=== PATIENT | male | born 1935 | race Caucasian/White ===

== ENCOUNTER → 2022-01-21 10:08 | Outpatient (BNVA) | payer MEDICARE, SELFPAY | PROVIDERS: Family Provider Nurse Practitioner; PCP Nurse Practitioner; Visit Provider Nurse Practitioner | DX: I10 Essential (primary) hypertension (principal) | CPT/HCPCS: 85025 ==

== ENCOUNTER → 2022-05-11 09:59 | Outpatient (BNVA) | payer MEDICARE, SELFPAY | PROVIDERS: Family Provider Nurse Practitioner; PCP Nurse Practitioner; Visit Provider Nurse Practitioner Family | DX: E87.5 Hyperkalemia (principal); I10 Essential (primary) hypertension; Z95.0 Presence of cardiac pacemaker | CPT/HCPCS: 80048 ==

== ENCOUNTER 2022-06-17 04:37 | Emergency (ER) | payer MEDICARE, SELFPAY ==
[2022-06-17 04:42] VITALS: BP 189/84; PULSE 73; RESP 18; TEMP 36.7; O2SAT 99; BMI 23.7
--- NOTE | 2022-06-17 05:07 | W.ED.NECK ---
HPI - Neck Pain/Injury General: Chief Complaint: Neck Pain/Injury Stated Complaint: Neck Pain And Knots Time Seen by Provider: 06/17/22 04:40 History of Present Illness: Mr. Covarrubias is an 86-year-old gentleman with history of hypertension, pacemaker placement presenting to the emergency department due to right-sided muscular neck pain. Onset of symptoms approximately 2 days ago initially noticing mild spasms however this is subsequently worsened associated with stiffness. Symptoms are worse with palpation and rotation of the head. Denies paresthesias or headache. Has at times seen the muscle spasm. Denies trauma. No other specific changes in health, exacerbating, or alleviating factors identified. Onset (ago): day(s) Severity: moderate Quality: spasming Exacerbating factors: movement of extremity and movement of neck Associated symptoms: Reports no associated symptoms Review of Systems General: Reports: 10 or more systems reviewed and unremarkable except in HPI and below PFSH ED PFSH: Medical History Actinic dermatitis Controlled diabetes mellitus Dermatitis Essential (primary) hypertension History of CVA (cerebrovascular accident) Pacemaker Surgical History History of colonoscopy 2010 History of permanent cardiac pacemaker placement January 13, [address] [facility] History of prostate surgery 2008 History of tonsillectomy Family History Brother FH: CVA (cerebrovascular accident) Father FH: CVA (cerebrovascular accident) Social History Smoking and tobacco status: former smoker Second hand smoke exposure: No Smoking risk assessment/counseling performed?: No Alcohol intake: never Desire information about alcohol rehabilitation?: No Counseling given: No Desire information about substance/drug rehabilitation?: No Counseling given: No Adopted: No Caregiver/support person: No Lives independently: Yes Household members: spouse Housing: House Marital status: Current occupational status: retired Current gender identity: Male Physical Exam Const: COMMON NORMALS: alert GENERAL APPEARANCE: cooperative and well developed HENMT: COMMON NORMALS: normocephalic and atraumatic HEAD & SCALP: normocephalic and atraumatic THROAT: posterior oropharynx normal Eye: COMMON NORMALS: conjunctivae normal CONJUNCTIVA: Yes conjunctivae normal SCLERA: sclerae normal Neck/C-Spine: COMMON NORMALS: supple GENERAL: Yes trachea midline OTHER: Right lateral muscular tenderness palpation with spasming. No posterior midline tenderness to palpation. No evidence of meningeal signs. No overlying skin lesions. Resp: COMMON NORMALS: clear to auscultation bilaterally EFFORT & INSPECTION: Yes able to speak in complete sentences AUSCULTATION: clear to auscultation bilaterally Cardio: COMMON NORMALS: regular rate and regular rhythm RATE: regular rate RHYTHM: regular rhythm GI: COMMON NORMALS: Soft to palpation PALPATION: Yes Soft to palpation and No Tenderness to palpation present (GI) PERCUSSION: normal to percussion Extremity: GENERAL: Yes normal exam except as noted and No edema Neuro: COMMON NORMALS: moves all extremities SENSORIUM/ORIENTATION: Yes alert and No Orientation impaired Psych: COMMON NORMALS: mental status grossly normal and Normal thought process present THOUGHT PROCESS: Normal thought process present Course Vital Signs: Vital signs: Vital Signs Temperature 98.0 F 06/17/22 04:42 Pulse Rate 70 06/17/22 06:09 Respiratory Rate 16 06/17/22 06:09 Blood Pressure 133/60 06/17/22 06:09 Pulse Oximetry 97 06/17/22 06:09 Oxygen Delivery Me thod 06/17/22 06:09 MDM - Neck Pain/Injury Medical Decision Making 86-year-old gentleman presenting with neck pain. Clinical exam and history provided is consistent with musculoskeletal pain. Patient proved with treatment. Strict caution discussed regarding prescriptions. Follow-up plan and return precautions discussed. Satisfactory for outpatient management. Medical Records I reviewed the patient's medical records. Lab Data I reviewed the patient's lab results. Discharge Plan Discharge Patient Disposition: Home Clinical Impression: Neck pain, Muscle spasm Condition: Stable Prescriptions: New Valium 5 mg tablet 5 mg PO Q8H PRN (Reason: muscle spasm) Qty: 10 0RF No Action aspirin [Adult Low Dose Aspirin] 81 mg tablet,delayed release (DR/EC) 81 mg PO DAILY metformin 500 mg tablet 500 mg PO BID simvastatin 20 mg tablet 20 mg PO DAILY Eliquis 5 mg tablet 5 mg PO BID mometasone 0.1 % cream 1 applic topical DAILY mometasone 0.1 % cream 1 applic topical DAILY PRN (Reason: skin irritation) Qty: 45 0RF methocarbamol 750 mg tablet 750 mg PO Q8H Qty: 30 0RF diclofenac sodium 75 mg tablet,delayed release (DR/EC) 75 mg PO BID Qty: 30 0RF Discharge Orders: Discharge ED (Routine); Ordered 06/17/22 Ordered By: Dangelo Granda Referrals: Willis Hinkle, ELIESER [Primary Care Provider] - Discharge Diet: Usual diet Discharge Activity: Increase activity as tolerated Patient Instructions: Diazepam (By mouth), Muscle Spasm (ED), Acute Neck Pain (ED), Pain Management Activity Restrictions/Additional Instructions: Thank you for visiting the emergency department. You were seen and evaluated for neck pain. The exact cause of your symptoms is unclear though based on description is likely muscle skeletal nature. We are pleased that you had improvement with treatment. You may continue to use [id number] medications however please do not exceed the daily recommended dosage. Please also take a proton pump inhibitor or H2 amber if using NSAIDs given your Eliquis use. You may also use topical patches such as Lidoderm, heat, ice. I will prescribe Valium, please use this extremely cautiously as these medications can cause difficulty with gait and balance as well as sedation. Please follow-up with your primary care provider. Return to the emergency department for uncontrolled symptoms, any new neurologic symptoms, or anything else that you are concerned about a feel needs emergency department evaluation. Coding Level of Care Code ED Clay Burner for Hattie Shaffer
[2022-06-17] MEDS: ketorolac 30 mg/mL INJ IM (05:15)
[2022-06-17] MEDS: diazePAM 5 mg Tablet PO (05:16)
[2022-06-17] MEDS: acetaminophen 325 mg Tablet 650 MG PO (05:16)
[2022-06-17 06:09] VITALS: BP 133/60; PULSE 70; RESP 16; O2SAT 97
== END 2022-06-17 06:10 | disposition home or self-care (01) ==
PROVIDERS: Emergency Provider Emergency Medicine; PCP Nurse Practitioner
DX: M54.2 Cervicalgia (principal); M62.838 Other muscle spasm; Z79.01 Long term (current) use of anticoagulants; Z79.84 Long term (current) use of oral hypoglycemic drugs; Z79.82 Long term (current) use of aspirin; Z87.891 Personal history of nicotine dependence; E11.9 Type 2 diabetes mellitus without complications; I10 Essential (primary) hypertension; Z86.73 Personal history of transient ischemic attack (TIA), and cerebral infarction without residual deficits; Z95.0 Presence of cardiac pacemaker
CPT/HCPCS: 96372; 99284; J1885

== ENCOUNTER 2022-06-19 08:09 | Emergency (ER) | payer MEDICARE, SELFPAY ==
[2022-06-19 08:24] VITALS: BMI 23.7
--- NOTE | 2022-06-19 08:46 | CTR_ITS ---
PROCEDURE INFORMATION: Exam: CTA Neck With Contrast Exam date and time: 06/19/2022 10:16 AM Age: 86 years old Clinical indication: Other: Right sided neck pain; Additional info: Severe right sided neck pain TECHNIQUE: Imaging protocol: Computed tomographic angiography of the neck with contrast. 3D rendering (Not supervised by radiologist): MIP and/or 3D reconstructed images were created by the technologist. Radiation optimization: All CT scans at this facility use at least one of these dose optimization techniques: automated exposure control; mA and/or kV adjustment per patient size (includes targeted exams where dose is matched to clinical indication); or iterative reconstruction. Contrast material: OMNI 350; Contrast volume: 100 ml; Contrast route: INTRAVENOUS (IV); COMPARISON: CT cervical spin wo con* [id number] 04/17/2017 5:58 PM RADIATION DOSE METRICS: Total DLP (mGy-cm): 451.29 FINDINGS: Tubes, catheters and devices: Pacemaker. Right common carotid artery: No stenosis. No dissection or occlusion. Right internal carotid artery: Moderate stenosis involving the proximal right internal carotid artery. Right external carotid artery: No occlusion or stenosis of the origin. Left common carotid artery: No stenosis. No dissection or occlusion. Left internal carotid artery: No stenosis of the extracranial segment. No dissection or occlusion. Left external carotid artery: No occlusion or stenosis of the origin. Right vertebral artery: Moderate to severe stenosis involving the distal right vertebral artery at the skull base. Left vertebral artery: Severe stenosis involving the proximal/origin left vertebral artery. Aorta: Ectatic ascending aorta 39 mm. Pulmonary arteries: Enlarged pulmonary artery at 38 mm likely pulmonary arterial hypertension. Salivary glands: There is a calcification associated with the right submandibular gland which appears smaller than the left. Thyroid: Slightly heterogeneous thyroid. Soft tissues: Normal. No significant soft tissue swelling. Bones/joints: Sternal sutures. Diffuse spinal arthritis. Lungs: Bilateral incompletely seen lung infiltrates. Possibly atelectasis. CT/CT angio neck [id number] IMPRESSION: 1. Moderate right proximal internal carotid artery stenosis. 2. 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 3. Moderate to severe stenosis involving the distal right vertebral artery. 4. Other findings as above. REFERENCES: NASCET CRITERIA. The degree of stenosis in the cervical segment of the internal carotid artery is based on NASCET criteria. Normal is no stenosis. Mild is less than 50% stenosis. Moderate is 50-69% stenosis. Severe is 70% to 99% stenosis. Total occlusion is no detectable patent lumen.
[2022-06-19] MEDS: ketorolac 30 mg/mL INJ 15 MG IM (08:51)
[2022-06-19] MEDS: methocarbamol 750 mg Tablet 1500 MG PO (08:51)
[2022-06-19 08:59] VITALS: PULSE 67; O2SAT 96
--- NOTE | 2022-06-19 09:23 | W.ED.GENADLT ---
HPI - General Adult General: Chief complaint: General Medical Stated complaint: Neck pain, being seen again Time Seen by Provider: 06/19/22 08:10 History of Present Illness: 86-year-old male presenting today with right-sided neck pain. Worse with movement. Onset approximately 4 days ago. Was seen here 2 days ago. Prescribed Valium as well as Tylenol with minimal improvement in pain. He denies numbness or tingling. Pain being worse in the morning and at night. Somewhat relieved during the day. No prior history of similar. Notes all of this began after using a [place] track. He has been using this for years. But recently resumed. He denies chest pain or shortness of breath. He denies fevers or chills. He denies cough. Review of Systems General: Reports: 10 or more systems reviewed and unremarkable except in HPI and below PFSH ED PFSH: Medical History Actinic dermatitis Controlled diabetes mellitus Dermatitis Essential (primary) hypertension History of CVA (cerebrovascular accident) Pacemaker Surgical History History of colonoscopy 2010 History of permanent cardiac pacemaker placement January 13, 2022 at [facility] History of prostate surgery 2008 History of tonsillectomy Family History Brother FH: CVA (cerebrovascular accident) Father FH: CVA (cerebrovascular accident) Social History Smoking and tobacco status: former smoker Second hand smoke exposure: No Smoking risk assessment/counseling performed?: No Alcohol intake: never Desire information about alcohol rehabilitation?: No Counseling given: No Desire information about substance/drug rehabilitation?: No Counseling given: No Adopted: No Caregiver/support person: No Lives independently: Yes Household members: spouse Housing: House Marital status: Current occupational status: retired Current gender identity: Male Physical Exam Const: COMMON NORMALS: no acute distress, patient oriented x3 and alert GENERAL APPEARANCE: cooperative ORIENTATION/CONSCIOUSNESS: Yes awake, Yes oriented to person, Yes oriented to place and Yes oriented to time HENMT: COMMON NORMALS: normocephalic, atraumatic, external ears normal, Normal external nose present and moist oral mucous membranes HEAD & SCALP: normal to inspection, normocephalic and atraumatic NOSE: Normal external nose present GENERAL EAR: hearing grossly impaired EXTERNAL EAR: Yes external ears normal Eye: COMMON NORMALS: Equal, round and reactive pupils present, EOMs intact bilaterally, conjunctivae normal and no scleral icterus GENERAL EYE: appearance normal, both eyes and all related structures EYELID: eyelids normal CONJUNCTIVA: Yes conjunctivae normal SCLERA: sclerae normal PUPIL: Yes Equal, round and reactive pupils present Neck/C-Spine: COMMON NORMALS: full ROM, supple and no JVD GENERAL: Yes normal visual inspection OTHER: Tenderness to palpation along the right neck. Lymph: LYMPHATIC: no lymphadenopathy noted and no lymphedema noted Chest: COMMONS NORMALS: normal inspection of the chest Resp: COMMON NORMALS: normal respiratory effort, No retractions and No use of accessory muscles Cardio: COMMON NORMALS: no JVD, regular rate and regular rhythm RATE: regular rate RHYTHM: regular rhythm GI: COMMON NORMALS: Normal to inspection, nondistended, normoactive bowel sounds present : COMMON NORMALS: Yes no CVA tenderness BLADDER/KIDNEY EXAM: Yes no CVA tenderness Back/Pelvis: COMMON NORMALS: no CVA tenderness and thoracic and lumbar spine normal to inspection Extremity: COMMON NORMALS: normal to inspection, full ROM and capillary refill normal GENERAL: Yes normal exam except as noted Neuro: COMMON NORMALS: patient oriented x3, CN's II-XII intact bilaterally, moves all extremities, no focal motor deficits, no sensory deficits noted and gait normal SENSORIUM/ORIENTATION: Yes alert, Yes oriented to person, Yes oriented to place and Yes oriented to time Psych: COMMON NORMALS: mental status grossly normal, Normal thought process present, cooperative and normal affect THOUGHT PROCESS: Normal thought process present Skin: COMMON NORMALS: no rashes or lesions noted and no wounds GENERAL SKIN EXAM: no rashes or lesions noted Course Vital Signs: Vital signs: Vital Signs Pulse Rate 67 06/19/22 12:11 Pulse Oximetry 95 06/19/22 12:11 Oxygen Delivery Me thod 06/19/22 08:59 [facility] - General Adult Medical Decision Making 86-year-old male presenting today with right-sided neck pain. Previously seen 48 hours ago. CMP with evidence of hyponatremia otherwise within normal limits. Patient with microcytic anemia. Patient already on iron supplementation. Recommended routine follow-up with primary care. Blood glucose is elevated. Without evidence of DKA or HHS. CTA with severe vertebral artery stenosis as well as moderate right carotid stenosis. Will refer on to vascular surgery for further evaluation management. Already on aspiring. Patient was given strict return precautions and recommended routine outpatient follow-up. Lab Data : 06/19/22 09:18 06/19/22 09:18 Radiology Impressions Neck CTA 06/19/22 08:46 IMPRESSION: 1. Moderate right proximal internal carotid artery stenosis. 2. 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 3. Moderate to severe stenosis involving the distal right vertebral artery. 4. Other findings as above. REFERENCES: NASCET CRITERIA. The degree of stenosis in the cervical segment of the internal carotid artery is based on NASCET criteria. Normal is no stenosis. Mild is less than 50% stenosis. Moderate is 50-69% stenosis. Severe is 70% to 99% stenosis. Total occlusion is no detectable patent lumen. Laboratory Results WBC 8.2 10^3/uL (4.0-10.0) 06/19/22 09:18 RBC 4.04 10^6/uL (4.1-5.3) L 06/19/22 09:18 Hgb 8.8 g/dL (11.7-16.6) L 06/19/22 09:18 Hct 30.4 % (42.0-52.0) L 06/19/22 09:18 MCV 75.2 fl (80-94) L 06/19/22 09:18 MCH 21.8 pg (28.0-34.0) L 06/19/22 09:18 MCHC 28.9 g/dL (30.0-36.0) L 06/19/22 09:18 RDW 15.5 % (12.1-15.1) H 06/19/22 09:18 Plt Count 292 10^3/cmm (130-400) 06/19/22 09:18 MPV 10.8 fL (7.4-10.4) H 06/19/22 09:18 Neut % (Auto) 83.5 % 06/19/22 09:18 Lymph % (Auto) 6.9 % 06/19/22 09:18 Knott % (Auto) 8.1 % 06/19/22 09:18 Eos % (Auto) 0.6 % 06/19/22 09:18 Baso % (Auto) 0.5 % 06/19/22 09:18 Neut # (Auto) 6.88 10^3/uL (1.8-7.7) 06/19/22 09:18 Lymph # (Auto) 0.6 10^3/uL (0.8-4.8) L 06/19/22 09:18 Knott # (Auto) 0.7 10^3/uL (0.2-0.9) 06/19/22 09:18 Eos # (Auto) 0.1 10^3/uL (0.0-0.8) 06/19/22 09:18 Baso # (Auto) 0.0 10^3/uL (0.0-0.1) 06/19/22 09:18 Nucleated RBC % (auto) 0 % 06/19/22 09:18 Nucleated RBCs # 0.0 /100WBC 06/19/22 09:18 Sodium 124 mmol/L (136-145) L 06/19/22 09:18 Potassium 4.5 mmol/L (3.5-5.1) 06/19/22 09:18 Chloride 92 mmol/L (98-107) L 06/19/22 09:18 Carbon Dioxide 22 mmol/L (22-29) 06/19/22 09:18 Anion Gap 14.5 (5-19) 06/19/22 09:18 BUN 20 mg/dL (8-23) 06/19/22 09:18 Creatinine 0.9 mg/dL (0.7-1.2) 06/19/22 09:18 GFR Calculation Not Reportable 06/19/22 09:18 Glucose 386 mg/dL (65-115) H 06/19/22 09:18 Calculated Osmolality 277 mOsm/kg (285-295) L 06/19/22 09:18 Calcium 9.0 mg/dL (8.5-10.5) 06/19/22 09:18 Total Bilirubin 0.3 mg/dL (0.15-1.2) 06/19/22 09:18 AST 13 U/L (0-40) 06/19/22 09:18 ALT 10 U/L (0-41) 06/19/22 09:18 Alkaline Phosphatase 97 U/L (40-130) 06/19/22 09:18 Total Protein 6.5 g/dL (6.6-8.7) L 06/19/22 09:18 Albumin 3.9 g/dL (3.5-5.2) 06/19/22 09:18 Globulin 2.6 g/dL (1.3-4.6) 06/19/22 09:18 Discharge Plan Discharge Patient Disposition: Home Clinical Impression: Acute hyponatremia, Asymptomatic vertebral artery stenosis, Asymptomatic carotid artery stenosis Condition: Stable Prescriptions: New methocarbamol 750 mg tablet 750 mg PO Q8H Qty: 30 0RF diclofenac sodium 75 mg tablet,delayed release (DR/EC) 75 mg PO BID Qty: 30 0RF No Action aspirin [Adult Low Dose Aspirin] 81 mg tablet,delayed release (DR/EC) 81 mg PO DAILY metformin 500 mg tablet 500 mg PO BID simvastatin 20 mg tablet 20 mg PO DAILY Eliquis 5 mg tablet 5 mg PO BID mometasone 0.1 % cream 1 applic topical DAILY spironolactone 25 mg tablet 25 mg PO DAILY mometasone 0.1 % cream 1 applic topical DAILY PRN (Reason: skin irritation) Qty: 45 0RF Valium 5 mg tablet 5 mg PO Q8H PRN (Reason: muscle spasm) Qty: 10 0RF Discharge Orders: Discharge ED (Routine); Ordered 06/19/22 Ordered By: Nima Perry Referrals: Willis Hinkle, CAPSULE INSPECTOR-C [Primary Care Provider] - Patient Instructions: Carotid Artery Disease (DC), Acute Neck Pain (ED), Pain Management Coding Level of Care Code ED [employer] Process[employer] Manager for Chg Fwd Exam Comprehensive
[2022-06-19 09:33] LABS: Basophils % 0.5 %; Eosinophils # 0.1 10^3/uL (0.0-0.8); Eosinophils % 0.6 %; Hematocrit 30.4 % (42.0-52.0); Hemoglobin 8.8 g/dL (11.7-16.6); Lymphocytes # 0.6 10^3/uL (0.8-4.8); Lymphocytes % 6.9 %; Mean Corpuscular HGB Conc 28.9 g/dL (30.0-36.0); Mean Corpuscular Hemoglobin 21.8 pg (28.0-34.0); Mean Corpuscular Volume 75.2 fl (80-94); Mean Platelet Volume 10.8 fL (7.4-10.4); Monocytes # 0.7 10^3/uL (0.2-0.9); Monocytes % 8.1 %; Neutrophils # 6.88 10^3/uL (1.8-7.7); Neutrophils % 83.5 %; Nucleated Red Blood Cells % 0 %; Platelet Count 292 10^3/cmm (130-400); Red Blood Count 4.04 10^6/uL (4.1-5.3); Red Cell Distribution Width 15.5 % (12.1-15.1); White Blood Count 8.2 10^3/uL (4.0-10.0)
[2022-06-19 09:55] LABS: Alanine Aminotransferase 10 U/L (0-41); Albumin Level 3.9 g/dL (3.5-5.2); Alkaline Phosphatase 97 U/L (40-130); Anion Gap 14.5 (5-19); Aspartate Amino Transferase 13 U/L (0-40); Blood Urea Nitrogen 20 mg/dL (8-23); Carbon Dioxide 22 mmol/L (22-29); Chloride 92 mmol/L (98-107); Globulin 2.6 g/dL (1.3-4.6); Glucose 386 mg/dL (65-115); Osmolality Calculated 277 mOsm/kg (285-295); Potassium 4.5 mmol/L (3.5-5.1); Sodium 124 mmol/L (136-145); Total Bilirubin 0.3 mg/dL (0.15-1.2); Total Protein 6.5 g/dL (6.6-8.7)
[2022-06-19] MEDS: iohexol 350 mg/mL 100 mL Btl IV (10:26)
[2022-06-19 10:59] VITALS: PULSE 66; O2SAT 99
[2022-06-19 12:11] VITALS: PULSE 67; O2SAT 95
== END 2022-06-19 12:00 | disposition home or self-care (01) ==
PROVIDERS: Emergency Provider Emergency Medicine; PCP Nurse Practitioner
DX: E87.1 Hypo-osmolality and hyponatremia (principal); I65.09 Occlusion and stenosis of unspecified vertebral artery; I65.29 Occlusion and stenosis of unspecified carotid artery; Z79.01 Long term (current) use of anticoagulants; Z79.84 Long term (current) use of oral hypoglycemic drugs; Z79.82 Long term (current) use of aspirin; E11.9 Type 2 diabetes mellitus without complications; I10 Essential (primary) hypertension; Z86.73 Personal history of transient ischemic attack (TIA), and cerebral infarction without residual deficits; Z95.0 Presence of cardiac pacemaker; Z87.891 Personal history of nicotine dependence
CPT/HCPCS: 36415; 70498; 80053; 85025; 96372; 99285; J1885; Q9967

== ENCOUNTER → 2022-07-02 08:34 | Outpatient (BNVA) | payer MEDICARE, SELFPAY | PROVIDERS: PCP Nurse Practitioner; Visit Provider Surgery | DX: D64.9 Anemia, unspecified (principal) | CPT/HCPCS: 99203 ==

== ENCOUNTER → 2022-07-27 16:43 | Outpatient (BNVA) | payer MEDICARE, SELFPAY | PROVIDERS: PCP Nurse Practitioner; Visit Provider Nurse Practitioner | DX: E11.65 Type 2 diabetes mellitus with hyperglycemia (principal); I10 Essential (primary) hypertension; D64.9 Anemia, unspecified; E55.9 Vitamin D deficiency, unspecified; R26.81 Unsteadiness on feet | CPT/HCPCS: 80053; 82306; 82607; 83036; 83550; 84443; 85025 ==

== ENCOUNTER 2022-08-10 17:29 | Emergency (ER) | payer MEDICARE, SELFPAY ==
[2022-08-10] VITALS (7 sets, daily range): BP systolic 139–167; BP diastolic 72–78; PULSE 85–91; RESP 13–18; O2SAT 93–99; BMI 23.0
--- NOTE | 2022-08-10 17:31 | W.ED.CHESTPA ---
HPI - Chest Pain General: Chief Complaint: Back Pain/Injury Stated Complaint: possible heart attack Time Seen by Provider: 08/10/22 17:31 History of Present Illness: Mr. Covarrubias is an 86-year-old gentleman with complex past medical history including hypertension, hyperlipidemia, history of known CAD, pacemaker placement, stroke, bypass surgery presenting to the emergency department due to upper back pain. He notes symptoms present upon waking up and initially felt like he had just slept wrong however symptoms have worsened. Intensity is severe. Worse with movement and palpation. Denies any new neurologic symptoms. No other specific changes in health, exacerbating, or alleviating factors identified. Onset (ago): hour(s) Timing of current episode: constant Prior episodes: No Onset: during rest Pain radiation: left scapula and right scapula Severity: severe Quality: aching Relieving factors: nothing Exacerbating factors: palpation and movement Review of Systems General: Reports: 10 or more systems reviewed and unremarkable except in HPI and below PFSH ED PFSH: Medical History Actinic dermatitis Dermatitis Diabetes mellitus with hyperglycemia Essential (primary) hypertension History of CVA (cerebrovascular accident) Iron deficiency Lesion of bladder removed colo Pacemaker Surgical History History of colonoscopy 2010 History of permanent cardiac pacemaker placement January 13, 2022 at [facility] History of prostate surgery 2008 History of tonsillectomy Family History Brother FH: CVA (cerebrovascular accident) Father FH: CVA (cerebrovascular accident) Social History Smoking and tobacco status: former smoker Second hand smoke exposure: No Smoking risk assessment/counseling performed?: No Alcohol intake: never Desire information about alcohol rehabilitation?: No Counseling given: No Desire information about substance/drug rehabilitation?: No Counseling given: No Adopted: No Caregiver/support person: No Lives independently: Yes Household members: spouse Housing: House Marital status: Current occupational status: retired Current gender identity: Male Physical Exam Const: COMMON NORMALS: alert GENERAL APPEARANCE: cooperative and well developed HENMT: COMMON NORMALS: normocephalic and atraumatic HEAD & SCALP: normocephalic and atraumatic THROAT: posterior oropharynx normal Eye: COMMON NORMALS: conjunctivae normal CONJUNCTIVA: Yes conjunctivae normal SCLERA: sclerae normal Neck/C-Spine: COMMON NORMALS: supple GENERAL: Yes trachea midline Resp: COMMON NORMALS: normal respiratory effort and clear to auscultation bilaterally EFFORT & INSPECTION: Yes able to speak in complete sentences AUSCULTATION: clear to auscultation bilaterally Cardio: COMMON NORMALS: regular rate and regular rhythm RATE: regular rate RHYTHM: regular rhythm GI: COMMON NORMALS: Soft to palpation PALPATION: Yes Soft to palpation and No Tenderness to palpation present (GI) Extremity: GENERAL: Yes normal exam except as noted and No edema Neuro: COMMON NORMALS: moves all extremities SENSORIUM/ORIENTATION: Yes alert and No Orientation impaired Psych: COMMON NORMALS: mental status grossly normal and Normal thought process present THOUGHT PROCESS: Normal thought process present Course Vital Signs: Vital signs: Vital Signs Pulse Rate 91 08/10/22 22:20 Respiratory Rate 16 08/10/22 22:20 Blood Pressure 167/76 08/10/22 22:20 Pulse Oximetry 99 08/10/22 22:20 Oxygen Delivery Me thod 08/10/22 18:33 MDM - Chest Pain Medical Decision Making 86-year-old gentleman presenting with back pain, nontraumatic mechanism. Exam as above. EKG shows atrial paced rhythm and ventricular paced rhythm, no STEMI. Labs notable for leukocytosis, normocytic anemia similar to prior. Metabolic panel similar to prior. Age-adjusted D-dimer is negative. 2-hour delta troponin is negative. Chest x-ray without lobar consolidation or pneumothorax. Given severity of symptoms and persistence despite treatment I believe that CTA for vascular pathology is reasonable. CTA negative for acute pathology to explain symptoms. CT T-spine negative for acute findings to explain symptoms. During ED course patient received analgesia and aspirin. Upon reassessment patient feels somewhat improved. I did discuss uncertain etiology of symptoms however patient would like to go home. The results of ED evaluation were discussed with the patient including prescriptions and/or symptomatic cares (if applicable) including appropriate and responsible use, followup plan, and return precautions. The patient verbalized understanding and felt safe for discharge. Medical Records I reviewed the patient's medical records. Lab Data I reviewed the patient's lab results. 08/10/22 17:38 08/10/22 17:38 Radiology Impressions Chest X-Ray 08/10/22 17:33 IMPRESSION: Negative for infiltrate. Chest CTA 08/10/22 19:25 IMPRESSION: 1. No pulmonary embolism or pneumonia. 2. Unremarkable thoracic aorta. 3. Chronic and incidental findings as described. Thoracic Spine CT 08/10/22 19:25 IMPRESSION: No acute findings Laboratory Results WBC 14.2 10^3/uL (4.0-10.0) H 08/10/22 17:38 RBC 4.11 10^6/uL (4.1-5.3) 08/10/22 17:38 Hgb 8.4 g/dL (11.7-16.6) L 08/10/22 17:38 Hct 29.4 % (42.0-52.0) L 08/10/22 17:38 MCV 71.5 fl (80-94) L 08/10/22 17:38 MCH 20.4 pg (28.0-34.0) L 08/10/22 17:38 MCHC 28.6 g/dL (30.0-36.0) L 08/10/22 17:38 RDW 17.6 % (12.1-15.1) H 08/10/22 17:38 Plt Count 352 10^3/cmm (130-400) 08/10/22 17:38 MPV 9.9 fL (7.4-10.4) 08/10/22 17:38 Neut % (Auto) 85.1 % 08/10/22 17:38 Lymph % (Auto) 6.8 % 08/10/22 17:38 [place] % (Auto) 7.0 % 08/10/22 17:38 Eos % (Auto) 0.3 % 08/10/22 17:38 Baso % (Auto) 0.4 % 08/10/22 17:38 Neut # (Auto) 12.12 10^3/uL (1.8-7.7) H 08/10/22 17:38 Lymph # (Auto) 1.0 10^3/uL (0.8-4.8) 08/10/22 17:38 [place] # (Auto) 1.0 10^3/uL (0.2-0.9) H 08/10/22 17:38 Eos # (Auto) 0.0 10^3/uL (0.0-0.8) 08/10/22 17:38 Baso # (Auto) 0.1 10^3/uL (0.0-0.1) 08/10/22 17:38 Nucleated RBC % (auto) 0 % 08/10/22 17:38 Nucleated RBCs # 0.0 /100WBC 08/10/22 17:38 D-Dimer 0.81 ug/mIFEU (0-0.59) H 08/10/22 17:38 Sodium 135 mmol/L (136-145) L 08/10/22 17:38 Potassium 4.5 mmol/L (3.5-5.1) 08/10/22 17:38 Chloride 101 mmol/L (98-107) 08/10/22 17:38 Carbon Dioxide 20 mmol/L (22-29) L 08/10/22 17:38 Anion Gap 18.5 (5-19) 08/10/22 17:38 BUN 24 mg/dL (8-23) H 08/10/22 17:38 Creatinine 0.9 mg/dL (0.7-1.2) 08/10/22 17:38 GFR Calculation Not Reportable 08/10/22 17:38 Glucose 205 mg/dL (65-115) H 08/10/22 17:38 Calculated Osmolality 290 mOsm/kg (285-295) 08/10/22 17:38 Calcium 9.6 mg/dL (8.5-10.5) 08/10/22 17:38 Total Bilirubin 0.3 mg/dL (0.15-1.2) 08/10/22 17:38 AST 14 U/L (0-40) 08/10/22 17:38 ALT 14 U/L (0-41) 08/10/22 17:38 Alkaline Phosphatase 104 U/L (40-130) 08/10/22 17:38 Troponin T Baseline 25 ng/L (0-15) H 08/10/22 17:38 Troponin T 120 Minute 23.31 ng/L (0-15) H 08/10/22 19:30 Delta Troponin T -1.69 ABS# (0-10) L 08/10/22 19:30 NT-Pro-B Natriuret Pep 970 pg/mL (0-450) H 08/10/22 17:38 Total Protein 7.4 g/dL (6.6-8.7) 08/10/22 17:38 Albumin 4.3 g/dL (3.5-5.2) 08/10/22 17:38 Globulin 3.1 g/dL (1.3-4.6) 08/10/22 17:38 Lipase 17 U/L (13-60) 08/10/22 17:38 Discharge Plan Discharge Patient Disposition: Home Clinical Impression: Acute thoracic back pain Condition: Stable Prescriptions: New ondansetron 4 mg tablet,disintegrating 4 mg PO Q8H PRN (Reason: nausea and vomiting) Qty: 15 0RF oxycodone 5 mg tablet 5 mg PO Q4H PRN (Reason: pain) Qty: 20 0RF No Action aspirin [Adult Low Dose Aspirin] 81 mg tablet,delayed release (DR/EC) 81 mg PO DAILY metformin 500 mg tablet 500 mg PO BID simvastatin 20 mg tablet 20 mg PO DAILY Eliquis 5 mg tablet 5 mg PO BID mometasone 0.1 % cream 1 applic topical DAILY PRN (Reason: Rash) ascorbic acid (vitamin C) 500 mg capsule, extended release 500 mg PO DAILY ergocalciferol (vitamin D2) 1,250 mcg (50,000 unit) capsule 1,250 mcg PO .weekly Qty: 12 0RF Rx Instructions: Tuesday ferrous sulfate 325 mg (65 mg iron) tablet 325 mg PO DAILY Qty: 90 0RF (DME) DME: [facility] See Rx Instructions .ROUTE .MEDSUPPLY Qty: 1 0RF Rx Instructions: Code E0143 and E0156 walker 4 wheels and seat methocarbamol 750 mg tablet 750 mg PO Q8H Qty: 30 0RF multivitamin Tablet 1 tab PO DAILY Miralax 17 gram/dose Powder 12.75 g PO DAILY Discharge Orders: Discharge ED (Routine); Ordered 08/10/22 Ordered By: Dangelo Granda Referrals: Willis Hinkle, COMMODITY LOAN CLERK-C [Primary Care Provider] - Discharge Diet: Usual diet Discharge Activity: Increase activity as tolerated Patient Instructions: Muscle Spasm (ED), Back Pain (ED), Opioid Safety, Pain Management Activity Restrictions/Additional Instructions: Thank you for visiting the emergency department. You were seen and evaluated for back pain. The exact cause of your symptoms is unclear though given no other obvious cause identified most likely is musculoskeletal in nature. I would expect improvement with treatment in the next few days. You may use tfyn-vkc-hicixlb medications such as acetaminophen and ibuprofen for pain however please do not exceed the daily recommended dosage as listed on the packaging and please keep in mind that many namebrand medications contain the same active ingredients. Please follow-up with your primary care provider. Return to the emergency department for uncontrolled symptoms or anything else that you are concerned about a feel needs emergency department evaluation. Coding Level of Care Code ED Workers Compensation Legal Secretary for Hattie Shaffer
--- NOTE | 2022-08-10 17:33 | ECG_ITS ---
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 Measurements Intervals [place] Rate: 82 P: 121 ID: [id number] QRS: 156 QRSD: 160 T: -19 QT: 425 QTc: 499 Interpretive Statements ELECTRONIC ATRIAL PACEMAKER ELECTRONIC VENTRICULAR PACEMAKER Compared to ECG 04/17/2017 16:08:00 Sinus rhythm no longer present First degree AV block no longer present Left-axis deviation no longer present Left bundle-branch block no longer present Electronically Signed On 08-10-2022 18:48:00 WATER/WASTEWATER PROJECT ENGINEER by Mireya aVldez M.D. [id number]
--- NOTE | 2022-08-10 17:33 | XRR_ITS ---
PROCEDURE INFORMATION: Exam: XR Chest Exam date and time: 08/10/2022 5:41 PM Age: 86 years old Clinical indication: Angina pectoris and chest pressure and chest wall pain; Prior surgery; Surgery date: 6+ months; Additional info: Cp TECHNIQUE: Imaging protocol: Radiologic exam of the chest. Views: 1 view. COMPARISON: CT angio neck [id number] 06/19/2022 10:16 AM FINDINGS: Tubes, catheters and devices: Pacemaker. Lungs: Unremarkable. No consolidation. Pleural spaces: Unremarkable. No pleural effusion. No pneumothorax. Heart/Mediastinum: Unremarkable. No cardiomegaly. Bones/joints: Sternotomy wires. XR/XR chest 1V portable [id number] IMPRESSION: Negative for infiltrate.
[2022-08-10] MEDS: aspirin 81 mg Chew Tablet 324 MG PO (17:47)
[2022-08-10] MEDS: fentaNYL 50 mcg/mL INJ 2mL IVP ×2 (17:48→21:21)
[2022-08-10 17:49] LABS: Basophils # 0.1 10^3/uL (0.0-0.1); Basophils % 0.4 %; Eosinophils % 0.3 %; Hematocrit 29.4 % (42.0-52.0); Hemoglobin 8.4 g/dL (11.7-16.6); Lymphocytes % 6.8 %; Mean Corpuscular HGB Conc 28.6 g/dL (30.0-36.0); Mean Corpuscular Hemoglobin 20.4 pg (28.0-34.0); Mean Corpuscular Volume 71.5 fl (80-94); Mean Platelet Volume 9.9 fL (7.4-10.4); Neutrophils # 12.12 10^3/uL (1.8-7.7); Neutrophils % 85.1 %; Nucleated Red Blood Cells % 0 %; Platelet Count 352 10^3/cmm (130-400); Red Blood Count 4.11 10^6/uL (4.1-5.3); Red Cell Distribution Width 17.6 % (12.1-15.1); White Blood Count 14.2 10^3/uL (4.0-10.0)
[2022-08-10 18:16] LABS: Troponin(5th) Baseline 25 ng/L (0-15)
[2022-08-10 18:24] LABS: Alanine Aminotransferase 14 U/L (0-41); Albumin Level 4.3 g/dL (3.5-5.2); Alkaline Phosphatase 104 U/L (40-130); Anion Gap 18.5 (5-19); Aspartate Amino Transferase 14 U/L (0-40); Blood Urea Nitrogen 24 mg/dL (8-23); Calcium 9.6 mg/dL (8.5-10.5); Carbon Dioxide 20 mmol/L (22-29); Chloride 101 mmol/L (98-107); Creatinine Clr Calc Pharmacy 62.5977; Globulin 3.1 g/dL (1.3-4.6); Glucose 205 mg/dL (65-115); Lipase 17 U/L (13-60); NT Pro B Type Natriuretic Pept 970 pg/mL (0-450); Osmolality Calculated 290 mOsm/kg (285-295); Potassium 4.5 mmol/L (3.5-5.1); Sodium 135 mmol/L (136-145); Total Bilirubin 0.3 mg/dL (0.15-1.2); Total Protein 7.4 g/dL (6.6-8.7)
[2022-08-10 18:44] LABS: D Dimer 0.81 ug/mIFEU (0-0.59)
--- NOTE | 2022-08-10 19:25 | CTR_ITS ---
PROCEDURE INFORMATION: Exam: CT Thoracic Spine Without Contrast Exam date and time: 08/10/2022 8:56 PM Age: 86 years old Clinical indication: Pain in thoracic spine; Prior surgery; Surgery type: Cabg. Pacer; Patient HX: C/O severe upper back pain with no injury. ; Additional info: Back pain, severe, nontraumatic TECHNIQUE: Imaging protocol: Computed tomography of the thoracic spine without contrast. Radiation optimization: All CT scans at this facility use at least one of these dose optimization techniques: automated exposure control; mA and/or kV adjustment per patient size (includes targeted exams where dose is matched to clinical indication); or iterative reconstruction. COMPARISON: CT cervical spin wo con* [id number] 04/17/2017 5:58 PM RADIATION DOSE METRICS: Total DLP (mGy-cm): 835.51 FINDINGS: Tubes, catheters and devices: Permanent pacemaker/defibrillator device in place. Bones/joints: Sternotomy wires are in place. Multilevel degenerative disc change. Schmorl's node inferior aspect of T12. No acute bony findings. Soft tissues: Unremarkable. CT/CT thoracic spin wo con* [id number] IMPRESSION: No acute findings
--- NOTE | 2022-08-10 19:25 | CTR_ITS ---
PROCEDURE INFORMATION: Exam: CTA Chest With Contrast Exam date and time: 08/10/2022 9:00 PM Age: 86 years old Clinical indication: Prior surgery; Surgery type: Cabg. Pacer; Patient HX: C/O severe upper back pain. Elevated troponin. ; Additional info: Severe back pain, nontraumatic TECHNIQUE: Imaging protocol: Computed tomographic angiography of the chest with contrast. 3D rendering (Not supervised by radiologist): MIP and/or 3D reconstructed images were created by the technologist. Radiation optimization: All CT scans at this facility use at least one of these dose optimization techniques: automated exposure control; mA and/or kV adjustment per patient size (includes targeted exams where dose is matched to clinical indication); or iterative reconstruction. Contrast material: OMNI 350; Contrast volume: 100 ml; Contrast route: INTRAVENOUS (IV); COMPARISON: CR (CHEST, ) 08/10/2022 5:41 PM RADIATION DOSE METRICS: Total DLP (mGy-cm): 745.64 FINDINGS: Tubes, catheters and devices: Left chest pacemaker power pack. Pulmonary arteries: Overall exam quality is good for evaluating the pulmonary arteries. There are no intraluminal filling defects to indicate pulmonary embolism. Aorta: The thoracic aorta is normal in size and enhancement. No wall thickening or dissection. Lungs: Focal scarring in the posterior segment of the left upper lobe. In the superior segment of the left lower lobe there is a 2 mm calcified granuloma. In the right lateral basal segment and in the middle lobe there are several small calcified or weakly calcified granulomas. Multiple additional granulomas in the left lung. Pleural spaces: Unremarkable. No pneumothorax. No pleural effusion. Heart: Unremarkable. No cardiomegaly. No pericardial effusion. Lymph nodes: Unremarkable. No enlarged lymph nodes. Bones/joints: Unremarkable. No acute fracture. Soft tissues: Unremarkable. Other findings: Chronic mediastinal postop changes. CT/CT angio chest [id number] IMPRESSION: 1. No pulmonary embolism or pneumonia. 2. Unremarkable thoracic aorta. 3. Chronic and incidental findings as described.
--- NOTE | 2022-08-10 19:41 | ECG_ITS ---
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 Measurements Intervals [place] Cbc Base Rate: 85 P: 0 IN: 0 QRS: 147 QRSD: 158 T: -14 QT: 427 QTc: 510 Interpretive Statements ELECTRONIC VENTRICULAR PACEMAKER ABNORMAL RHYTHM ECG Compared to ECG 08/10/2022 17:34:12 Atrial-paced complex(es) or rhythm no longer present Electronically Signed On 08-11-2022 7:47:39 MOSHGIACH by Mireya Valdez M.D. [id number]
--- NOTE | 2022-08-10 19:47 | ECG_ITS ---
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 Measurements Intervals [place] Rate: 83 P: 74 UT: 186 QRS: 199 QRSD: 149 T: 202 QT: 423 QTc: 500 Interpretive Statements ELECTRONIC VENTRICULAR PACEMAKER MARKED ST DEPRESSION Compared to ECG 08/10/2022 19:41:56 ST (T wave) deviation now present Electronically Signed On 08-11-2022 16:17:49 COLOR DRUM WORKER by Lambert Robbins M.D. [id number]
[2022-08-10 20:18] LABS: Troponin 5 2HR 23.31 ng/L (0-15)
[2022-08-10 20:22] LABS: Troponin 5 2HR Delta -1.69 ABS# (0-10)
[2022-08-10] MEDS: iohexol 350 mg/mL 500 mL Btl (per mL) IV (21:06)
[2022-08-10] MEDS: oxyCODONE 5 mg IR Tab/Cap 15 MG PO (22:17)
== END 2022-08-10 22:20 | disposition home or self-care (01) ==
PROVIDERS: Emergency Provider Emergency Medicine; PCP Nurse Practitioner
DX: M54.6 Pain in thoracic spine (principal); Z79.82 Long term (current) use of aspirin; Z79.84 Long term (current) use of oral hypoglycemic drugs; Z79.01 Long term (current) use of anticoagulants; E11.9 Type 2 diabetes mellitus without complications; I10 Essential (primary) hypertension; Z86.73 Personal history of transient ischemic attack (TIA), and cerebral infarction without residual deficits; Z95.0 Presence of cardiac pacemaker; Z87.891 Personal history of nicotine dependence
CPT/HCPCS: 71045; 71275; 72128; 80053; 83690; 83880; 84484; 85025; 85378; 93005; 96374; 96376; 99285; J3010; Q9967

== ENCOUNTER 2022-08-15 00:06 | Inpatient (IN) | payer MEDICARE, SELFPAY ==
[2022-08-15] VITALS (84 sets, daily range): BP systolic 137–175; BP diastolic 64–88; PULSE 58–86; RESP 14–31; TEMP 36.7–37.8; O2SAT 88–100; BMI 23.8
--- NOTE | 2022-08-15 00:39 | W.ED.WEAKNES ---
HPI - Weakness General: Chief complaint: Weakness Stated complaint: WEAKNESS Time Seen by Provider: 08/15/22 00:14 Source: patient and family History of Present Illness: 86-year-old gentleman presenting with posterior neck, and left arm pain. He has had a temperature of 101 at home as well. He was seen 5 days ago for similar pain. CT was negative for thoracic dissection. Troponins were negative. He is anticoagulated. He has continued to complain of pain. He has been generally weak with this today. MD Complaint: generalized weakness Onset (ago): day(s) Duration: constant and progressively worsening Location: generalized Migration: none Severity: moderate Quality: tingling, numbness and aching Relieving factors: medication Exacerbating factors: movement and exertion Associated symptoms: Reports chest pain, confusion (Mild) and short of breath; Denies melena, diaphoresis, dysuria, easy bruising, headache(s) or vomiting Review of Systems Const: Denies: diaphoresis ENMT: Reports: throat pain and uvular edema Card: Reports: chest pain Resp: Denies: dyspnea GI: Denies: abdominal pain, vomiting or melena : Denies: dysuria Skin/Breast: Denies: rash Neuro: Reports: confusion (Mild); Denies: headache(s) Efren/Lymph: Denies: easy bruising PFSH ED PFSH: Medical History Actinic dermatitis Dermatitis Diabetes mellitus with hyperglycemia Essential (primary) hypertension History of CVA (cerebrovascular accident) Iron deficiency Lesion of bladder removed colo Pacemaker Surgical History History of colonoscopy 2010 History of permanent cardiac pacemaker placement January 13, 2022 at [facility] History of prostate surgery 2009 History of tonsillectomy Family History Brother FH: CVA (cerebrovascular accident) Father FH: CVA (cerebrovascular accident) Social History Smoking and tobacco status: former smoker Second hand smoke exposure: No Smoking risk assessment/counseling performed?: No Alcohol intake: never Desire information about alcohol rehabilitation?: No Counseling given: No Desire information about substance/drug rehabilitation?: No Counseling given: No Adopted: No Caregiver/support person: No Lives independently: Yes Household members: spouse Housing: House Marital status: Current occupational status: retired Current gender identity: Male Physical Exam Const: GENERAL APPEARANCE: cooperative and frail appearing; not comfortable ORIENTATION/CONSCIOUSNESS: Yes awake, Yes oriented to person, Yes oriented to place and Yes oriented to time HENMT: THROAT: uvular edema Neuro: SENSORIUM/ORIENTATION: Yes oriented to person, Yes oriented to place and Yes oriented to time Procedures Lumbar Puncture Time Out Performed: Yes Patient Position: left lateral decubitus Skin Prep: Povidone-Iodine 1% Local Anesthetic: lidocaine 1% Amount of anesthesia used (mL): 3 Spinal Needle Gauge: 20G Interspace Used: L3-L4 Fluid Initially Obtained: clear Complications: none Course Vital Signs: Vital signs: Vital Signs Temperature 98.1 F 08/15/22 14:39 Pulse Rate 76 08/15/22 14:39 Respiratory Rate 17 08/15/22 14:39 Blood Pressure 137/71 08/15/22 14:39 Pulse Oximetry 97 08/15/22 14:39 Oxygen Delivery Me thod 08/15/22 06:46 MDM - Weakness Medical Decision Making 86-year-old gentleman with a fever of 100 at home, some altered mental status, and ominous left arm and left side of the neck pain. There is a palpable mass at the base of his left neck. This appears to be a reactive lymph node by both ultrasound and CT. Chest x-ray is negative. His white blood cell count is 11.3. He hemoglobin is stable at 8.7. He has a sodium of 126. He has some mild mental status changes associated with this and potentially a fever. Because of the fever, neck pain, and mental status changes, CT was performed and is negative. Lumbar puncture was performed and shows no evidence of meningitis. Swabs are negative. He will be covered with antibiotics. Hydrated. His sodium is low, will need repletion. He will be admitted. Lab Data 08/15/22 00:10 12 00:10 Radiology Impressions Chest X-Ray 08/15/22 00:41 IMPRESSION: Stable chest with no definite acute process. Neck CT 08/15/22 00:41 IMPRESSION: 1. No suspicious neck mass or bulky cervical lymphadenopathy identified on CT. If a palpable concerning neck mass is persistent, follow with ENT. 2. A few tiny nodes as described. Other chronic findings above. Head/Neck Ultrasound 08/15/22 02:18 IMPRESSION: 1. Small left lower neck lymph node is unchanged from the same-day CT. This is probably a left supraclavicular node. 2. This is not overtly suspicious by morphology and is very small. Advise correlation. Recommend 3 to six-month follow-up exam. Head CT 08/15/22 02:43 IMPRESSION: 1. No focal hemorrhage or midline shift. 2. Old strokes and other chronic findings are again seen. Laboratory Results WBC 11.3 10^3/uL (4.0-10.0) H 08/15/22 00:10 RBC 4.38 10^6/uL (4.1-5.3) 08/15/22 00:10 Hgb 8.7 g/dL (11.7-16.6) L 08/15/22 00:10 Hct 31.0 % (42.0-52.0) L 08/15/22 00:10 MCV 70.8 fl (80-94) L 08/15/22 00:10 MCH 19.9 pg (28.0-34.0) L 08/15/22 00:10 MCHC 28.1 g/dL (30.0-36.0) L 08/15/22 00:10 RDW 19.1 % (12.1-15.1) H 08/15/22 00:10 Plt Count 393 10^3/cmm (130-400) 08/15/22 00:10 MPV 10.3 fL (7.4-10.4) 08/15/22 00:10 Neut % (Auto) 82.3 % 08/15/22 00:10 Lymph % (Auto) 6.5 % 08/15/22 00:10 [place] % (Auto) 10.1 % 08/15/22 00:10 Eos % (Auto) 0.4 % 08/15/22 00:10 Baso % (Auto) 0.3 % 08/15/22 00:10 Neut # (Auto) 9.32 10^3/uL (1.8-7.7) H 08/15/22 00:10 Lymph # (Auto) 0.7 10^3/uL (0.8-4.8) L 08/15/22 00:10 [place] # (Auto) 1.1 10^3/uL (0.2-0.9) H 08/15/22 00:10 Eos # (Auto) 0.1 10^3/uL (0.0-0.8) 08/15/22 00:10 Baso # (Auto) 0.0 10^3/uL (0.0-0.1) 08/15/22 00:10 Nucleated RBC % (auto) 0 % 08/15/22 00:10 Nucleated RBCs # 0.0 /100WBC 08/15/22 00:10 ESR 43 mm/hr (0-10) H 08/15/22 00:10 PT 17.00 SECONDS (12.1-14.9) H 08/15/22 00:10 INR 1.35 (0.8-1.2) H 08/15/22 00:10 APTT 33.9 SECONDS (23.9-36.7) 08/15/22 00:10 Sodium 126 mmol/L (136-145) L 08/15/22 00:10 Potassium 5.0 mmol/L (3.5-5.1) 08/15/22 00:10 Chloride 91 mmol/L (98-107) L 08/15/22 00:10 Carbon Dioxide 19 mmol/L (22-29) L 08/15/22 00:10 Anion Gap 21.0 (5-19) H 08/15/22 00:10 BUN 19 mg/dL (8-23) 08/15/22 00:10 Creatinine 1.0 mg/dL (0.7-1.2) 08/15/22 00:10 GFR Calculation Not Reportable 08/15/22 00:10 Glucose 246 mg/dL (65-115) H 08/15/22 00:10 Calculated Osmolality 272 mOsm/kg (285-295) L 08/15/22 00:10 Lactate 2.1 mmol/L (0.5-2.2) 08/15/22 00:10 Calcium 9.3 mg/dL (8.5-10.5) 08/15/22 00:10 Total Bilirubin 0.4 mg/dL (0.15-1.2) 08/15/22 00:10 AST 16 U/L (0-40) 08/15/22 00:10 ALT 13 U/L (0-41) 08/15/22 00:10 Alkaline Phosphatase 98 U/L (40-130) 08/15/22 00:10 C-Reactive Protein 147.3 mg/L (0.0-4.9) H 08/15/22 00:10 Total Protein 7.4 g/dL (6.6-8.7) 08/15/22 00:10 Albumin 3.8 g/dL (3.5-5.2) 08/15/22 00:10 Globulin 3.6 g/dL (1.3-4.6) 08/15/22 00:10 Urine Color Yellow (Yellow) 08/15/22 01:35 Urine Appearance Clear (CLEAR) 08/15/22 01:35 Urine pH 5 (5-7) 08/15/22 01:35 Ur Specific [place] 1.015 (1.005-1.030) 08/15/22 01:35 Urine Protein Neg (Negative) 08/15/22 01:35 Urine Glucose (UA) 2+ (Normal) H 08/15/22 01:35 Urine Ketones 1+ (Negative) H 08/15/22 01:35 Urine Blood Neg (Negative) 08/15/22 01:35 Urine Nitrate Negative (Negative) 08/15/22 01:35 Urine Bilirubin Neg (Negative) 08/15/22 01:35 Urine Urobilinogen Neg mg/dL (Negative) 08/15/22 01:35 Ur Leukocyte Esterase Negative (Negative) 08/15/22 01:35 CSF Appearance Clear (CLEAR) 08/15/22 04:05 CSF Color Colorless (COLORLESS) 08/15/22 04:05 CSF WBC 1 /uL (0-5) 08/15/22 04:05 CSF RBC 0 10^3/uL (0-0) 08/15/22 04:05 CSF Total Cell Counted 41 08/15/22 04:05 CSF Mononuclear # Auto 0.001 10^3/uL (50-90) L 08/15/22 04:05 CSF Mononuclear WBCs % 93 % (50-90) H 08/15/22 04:05 CSF Polynuclear WBCs # 0.000 10^3/uL (0-10) 08/15/22 04:05 CSF Polynuclear WBCs % 7 % (0-10) 08/15/22 04:05 CSF Glucose 125 mg/dL (40-70) H 08/15/22 04:05 CSF Total Protein 36 mg/dL (15-45) 08/15/22 04:05 Nasal Influ A H1 2009 PCR Not detected (NOT DETECT) 08/15/22 04:12 Adenovirus (PCR) Not detected (NOT DETECT) 08/15/22 04:12 C. pneumoniae DNA (PCR) Not detected (NOT DETECT) 08/15/22 04:12 Coronavirus 229E (PCR) Not detected (NOT DETECT) 08/15/22 04:12 Human Metapneumovir PCR Not detected (NOT DETECT) 08/15/22 04:12 Influenza A (H1) PCR Not detected (NOT DETECT) 08/15/22 04:12 Influenza A (H3) PCR Not detected (NOT DETECT) 08/15/22 04:12 Influenza Type A Ag negative (Negative) 08/15/22 01:15 Influenza Type A (PCR) Not detected (NOT DETECT) 08/15/22 04:12 Influenza Type B Ag negative (Negative) 08/15/22 01:15 Influenza Type B (PCR) Not detected (NOT DETECT) 08/15/22 04:12 M. pneumoniae (PCR) Not detected (NOT DETECT) 08/15/22 04:12 Parainfluenza 1 (PCR) Not detected (NOT DETECT) 08/15/22 04:12 Parainfluenza 2 (PCR) Not detected (NOT DETECT) 08/15/22 04:12 Parainfluenza 3 (PCR) Not detected (NOT DETECT) 08/15/22 04:12 Parainfluenza 4 (PCR) Not detected (NOT DETECT) 08/15/22 04:12 RSV Type A (PCR) Not detected (NOT DETECT) 08/15/22 04:12 RSV Type B (PCR) Not detected (NOT DETECT) 08/15/22 04:12 Entero/Rhino (PCR) Not detected (NOT DETECT) 08/15/22 04:12 SARS-CoV-2 (PCR) Not detected (NOT DETECT) 08/15/22 04:12 SARS-CoV-2 Ag (Rapid) negative (Negative) 08/15/22 01:15 Discharge Plan Discharge Patient Disposition: Admitted As Inpatient Admit Provider: Tahmina Jennings Clinical Impression: Fever of unknown origin, Acute hyponatremia, Acute alteration in mental status Condition: Stable Coding Level of Care Code ED Bulk Loader for [place] Fwd Exam Problem Focused
--- NOTE | 2022-08-15 00:41 | XRR_ITS ---
PROCEDURE INFORMATION: Exam: XR Chest Exam date and time: 08/15/2022 12:49 AM Age: 86 years old Clinical indication: Fever; Prior surgery; Surgery type: Cabg. Pacer; Additional info: Fever neck pain TECHNIQUE: Imaging protocol: Radiologic exam of the chest. Views: 1 view. COMPARISON: CR (CHEST, ) 08/10/2022 5:41 PM FINDINGS: Tubes, catheters and devices: The heart is mildly enlarged with CABG, atherosclerosis, left-sided pacing device. Lungs: Right perihilar atelectasis or scarring unchanged. Lungs otherwise clear. Pleural spaces: Unremarkable. No pleural effusion. No pneumothorax. Heart/Mediastinum: Unremarkable. No cardiomegaly. Bones/joints: Unremarkable. XR/XR chest 1V portable [id number] IMPRESSION: Stable chest with no definite acute process.
--- NOTE | 2022-08-15 00:41 | CTR_ITS ---
PROCEDURE INFORMATION: Exam: CT Neck With Contrast Exam date and time: 08/15/2022 12:56 AM Age: 86 years old Clinical indication: Mass, lump, or swelling in neck; Posterior; Prior surgery; Surgery type: Cabg. Pacer; Patient HX: Palpable mass to left side of base of neck. ; Additional info: L neck base mass, tenderness TECHNIQUE: Imaging protocol: Computed tomography of the neck with contrast. Radiation optimization: All CT scans at this facility use at least one of these dose optimization techniques: automated exposure control; mA and/or kV adjustment per patient size (includes targeted exams where dose is matched to clinical indication); or iterative reconstruction. Contrast material: OMNI 350; Contrast volume: 100 ml; Contrast route: INTRAVENOUS (IV); COMPARISON: CT angio neck [id number] 06/19/2022 10:16 AM RADIATION DOSE METRICS: Total DLP (mGy-cm): 237.35 FINDINGS: Tubes, catheters and devices: Left-sided pacing device. Pharynx: No focal mucosal space suspicious lesion is noted. Larynx: Unremarkable. Epiglottis is unremarkable. Prevertebral and retropharyngeal spaces: Unremarkable. Salivary glands: Within normal limits. Glands are normal in size. Thyroid: The thyroid is not enlarged. No suspicious nodules are apparent. The thyroid is diffusely mildly heterogenous. Lymph nodes: There is a tiny lymph node at the left supraclavicular fossa on series 13, image 49. This is very tiny. This measures up to about 7 mm. Other tiny cervical lymph nodes in bilateral levels 2 and 3 have a normal appearance. No bulky or necrotic lymphadenopathy is detected. Trachea: Visualized trachea is unremarkable. Lungs: Unremarkable as visualized. Bones/joints: Moderate diffuse cervical facet arthropathy. Severe C5-T1 DDD. Vasculature: Diffuse advanced vascular calcifications are visualized. CT 06/19/2022 neck CTA for those details. Soft tissues: See Vasculature finding. CT/CT neck w con* [id number] IMPRESSION: 1. No suspicious neck mass or bulky cervical lymphadenopathy identified on CT. If a palpable concerning neck mass is persistent, follow with ENT. 2. A few tiny nodes as described. Other chronic findings above.
--- NOTE | 2022-08-15 00:43 | ECG_ITS ---
[facility] Test Date: 2022-08-15 Pat Name: Misha Covarrubias Department: Room: Gender: Male Senior Housekeeper: : 1935 Requested By: Francisco Osuna Order Number: [id number] Watson MD: Lambert Robbins M.D. Measurements Intervals [place] Rate: 83 P: 80 HI: 136 QRS: 154 QRSD: 169 T: -24 QT: 443 QTc: 522 Interpretive Statements ELECTRONIC VENTRICULAR PACEMAKER ABNORMAL RHYTHM ECG Compared to ECG 08/10/2022 19:47:39 ST (T wave) deviation no longer present Electronically Signed On 08-15-2022 12:53:06 MELT SUPERVISOR by Lambert Robbins M.D. [email or web address]
[2022-08-15 00:56] LABS: Basophils % 0.3 %; Eosinophils # 0.1 10^3/uL (0.0-0.8); Eosinophils % 0.4 %; Hemoglobin 8.7 g/dL (11.7-16.6); Lymphocytes # 0.7 10^3/uL (0.8-4.8); Lymphocytes % 6.5 %; Mean Corpuscular HGB Conc 28.1 g/dL (30.0-36.0); Mean Corpuscular Hemoglobin 19.9 pg (28.0-34.0); Mean Corpuscular Volume 70.8 fl (80-94); Mean Platelet Volume 10.3 fL (7.4-10.4); Monocytes # 1.1 10^3/uL (0.2-0.9); Monocytes % 10.1 %; Neutrophils # 9.32 10^3/uL (1.8-7.7); Neutrophils % 82.3 %; Nucleated Red Blood Cells % 0 %; Platelet Count 393 10^3/cmm (130-400); Red Blood Count 4.38 10^6/uL (4.1-5.3); Red Cell Distribution Width 19.1 % (12.1-15.1); White Blood Count 11.3 10^3/uL (4.0-10.0)
[2022-08-15 01:02] LABS: INR 1.35 (0.8-1.2)
[2022-08-15 01:03] LABS: Partial Thromboplastin Time 33.9 SECONDS (23.9-36.7)
[2022-08-15 01:12] LABS: Lactate (Lactic Acid level) 2.1 mmol/L (0.5-2.2)
[2022-08-15] MEDS: iohexol 350 mg/mL 500 mL Btl (per mL) IV (01:12)
[2022-08-15 01:13] LABS: Alanine Aminotransferase 13 U/L (0-41); Albumin Level 3.8 g/dL (3.5-5.2); Alkaline Phosphatase 98 U/L (40-130); Aspartate Amino Transferase 16 U/L (0-40); Blood Urea Nitrogen 19 mg/dL (8-23); C Reactive Protein 147.3 mg/L (0.0-4.9); Calcium 9.3 mg/dL (8.5-10.5); Carbon Dioxide 19 mmol/L (22-29); Chloride 91 mmol/L (98-107); Globulin 3.6 g/dL (1.3-4.6); Glucose 246 mg/dL (65-115); Osmolality Calculated 272 mOsm/kg (285-295); Sodium 126 mmol/L (136-145); Total Bilirubin 0.4 mg/dL (0.15-1.2); Total Protein 7.4 g/dL (6.6-8.7)
[2022-08-15] MEDS: morphine 4 mg/mL SDV 1 mL IVP (01:14)
[2022-08-15] MEDS: ondansetron 2 mg/ML SDV 2 mL 4 MG IVP (01:14)
[2022-08-15 01:20] LABS: Erythrocyte Sedimentation Rate 43 mm/hr (0-10)
[2022-08-15 01:42] LABS: Add Urine Microscopic? NO; Charge for UA Resulting for Rev
[2022-08-15 01:53] LABS: Influenza A by IFA negative (Negative); Influenza B by IFA negative (Negative); SARS Covid-2 Antigen negative (Negative)
[2022-08-15 02:11] LABS: Bilirubin Urine Neg (Negative); Blood Urine Neg (Negative); Glucose Urine UA 2+ (Normal); Ketones Urine 1+ (Negative); Leukocyte Esterase Urine Negative (Negative); Nitrate Urine Negative (Negative); Protein Urine Neg (Negative); Specific Gravity, Urine 1.015 (1.005-1.030); Urine Appearance Clear (CLEAR); Urine Color Yellow (Yellow); Urobilinogen Urine Neg (Negative); pH Urine 5 (5-7)
[2022-08-15] MEDS: acetaminophen 325 mg Tablet 650 MG PO (02:17)
--- NOTE | 2022-08-15 02:18 | USR_ITS ---
PROCEDURE INFORMATION: Exam: US Soft Tissue Head and Neck, Soft Tissue Exam date and time: 08/15/2022 2:27 AM Age: 86 years old Clinical indication: Mass, lump, or swelling in neck; Left and posterior; Neck pain; Additional info: L base neck palpable mass, pain TECHNIQUE: Imaging protocol: Real-time ultrasound scan of the head and neck with image documentation. Exam focused on the soft tissue in the region of clinical concern. COMPARISON: CT neck w con* [id number] 08/15/2022 12:56 AM FINDINGS: Lymph nodes: At area of concern, the left lower anterior neck shows a small nonaggressive appearing lymph node, which measures up to about 7 mm in size. This has a fatty hilum on series 1, image 4. In the sagittal plane this measures up to 10 x 4 mm. No other nodes are documented. Soft tissues: Unremarkable. No fluid collections. US/US soft tissue head neck [id number] IMPRESSION: 1. Small left lower neck lymph node is unchanged from the same-day CT. This is probably a left supraclavicular node. 2. This is not overtly suspicious by morphology and is very small. Advise correlation. Recommend 3 to six-month follow-up exam.
--- NOTE | 2022-08-15 02:43 | CTR_ITS ---
PROCEDURE INFORMATION: Exam: CT Head Without Contrast Exam date and time: 08/15/2022 2:49 AM Age: 86 years old Clinical indication: Altered mental status/memory loss and fever; Confusion or disorientation; Patient HX: Fever with mild disorientation; Additional info: Fever AMS TECHNIQUE: Imaging protocol: Computed tomography of the head without contrast. Radiation optimization: All CT scans at this facility use at least one of these dose optimization techniques: automated exposure control; mA and/or kV adjustment per patient size (includes targeted exams where dose is matched to clinical indication); or iterative reconstruction. COMPARISON: CT head wo con* [id number] 04/17/2017 5:56 PM RADIATION DOSE METRICS: Total DLP (mGy-cm): 1144.08 FINDINGS: Brain: No focal hemorrhage or midline shift is identified. Ventricles and parenchyma show moderate atrophy and chronic cerebral white matter ischemic change. Old small right occipital CVA. Old large right cerebellar CVA. Old small right parietal CVA as well. The ventricles and parenchyma show no significant change from 04/17/2017. Cerebral ventricles: No ventriculomegaly or evidence of acute hydrocephalus. Paranasal sinuses: The partially assessed sinuses are grossly clear. Mastoid air cells: Visualized mastoid air cells are well aerated. Bones/joints: No displaced skull fracture is noted. Soft tissues: Unremarkable. Vasculature: Diffuse vascular calcification. CT/CT head wo con* [id number] IMPRESSION: 1. No focal hemorrhage or midline shift. 2. Old strokes and other chronic findings are again seen.
[2022-08-15] MEDS: fentaNYL 50 mcg/mL INJ 2mL IVP (04:00)
[2022-08-15] MEDS: sodium chloride 0.9% 1,000 ML 999 ML IV (04:14)
--- NOTE | 2022-08-15 04:15 | P.HP_ITS ---
Providers/Chief Complaint Primary Care Provider: Willis Hinkle, FABIANO-C Chief Complaint: WEAKNESS History of Present Illness Misha Covarrubias is a 86 year old male with past medical history of stroke, diabetes mellitus, hypertension, status post pacemaker, CABG presented to the hospital with posterior neck and left arm pain. He had a temp of 101 at home as well. In the ER he has been febrile as well or 100.1. He was recently here in the ER for similar pain 5 days ago and was discharged home. CT chest was negative for aortic dissection at the time. Patient is on Eliquis at home. Troponins were negative at previous admission. Patient has little lump at posterior neck close to her shoulder area. Patient is a former smoker. Patient is accompanied by his . Neck CT done in the ER showed no suspicious neck mass or bulky cervical lymphadenopathy identified on CT. Recommend to follow-up with ENT if neck mass persistent. Ultrasound of that mass was also done today which showed that it was a lymph node. Labs are significant for sodium 126. ESR 43, CRP 179. Patient also had a fever temp 100. He was slightly confused upon presentation to ER. Lumbar puncture was done by ER physician and CSF was completely crystal-clear. Results of LP are pending however. Patient was given some IV fluids and mental status improved. Mental status is back to baseline at this point. ER physician suspicion of meningitis is low at this point. He does not have any neck stiffness. WBC 11.3. Patient states he has had decreased oral intake recently. Patient's states that patient had pneumonia several times in the past. He also has a history of bladder cancer. 5 tumors were removed from bladder. Patient did not receive any chemotherapy. Now she states there is an area in the bladder that is of concern. Patient is being followed up at the [facility] and his next evaluation is the end of this month. Patient's main concern is fever generalized weakness and swollen lymph out of the back of his neck. Denies shortness of breath, chest pain, abdominal pain, nausea, vomiting, diarrhea, urinary complaints. Medications/Allergies Home Medications Medication Instructions Recorded Confirmed Last Taken Type apixaban 5 mg tablet (Eliquis) 5 mg PO BID 12/09/20 08/12/22 08/12/22 History aspirin 81 mg tablet,delayed 81 mg PO DAILY 12/09/20 08/12/22 08/12/22 History release (Adult Low Dose Aspirin) metformin 500 mg tablet 500 mg PO BID 12/09/20 08/12/22 08/12/22 History simvastatin 20 mg tablet 20 mg PO DAILY 12/09/20 08/12/22 08/11/22 History mometasone 0.1 % topical cream 1 applic topical DAILY PRN Rash 01/21/22 08/12/22 Unknown History methocarbamol 750 mg tablet 750 mg PO Q8H #30 tabs 06/19/22 08/12/22 08/12/22 Rx ascorbic acid (vitamin C) 500 mg 500 mg PO DAILY 07/02/22 08/12/22 08/12/22 History capsule,extended release DME: Walker #1 ea 08/02/22 08/02/22 Unknown Rx ergocalciferol (vitamin D2) 1,250 1,250 mcg PO .weekly #12 caps 08/02/22 08/12/22 08/11/22 Rx mcg (50,000 unit) capsule ferrous sulfate 325 mg (65 mg 325 mg PO DAILY #90 tabs 08/02/22 08/12/22 08/12/22 Rx iron) tablet ondansetron 4 mg disintegrating 4 mg PO Q8H PRN nausea and 08/10/22 08/12/22 Unknown Rx tablet vomiting #15 tabs oxycodone 5 mg tablet 5 mg PO Q4H PRN pain #20 tabs 08/10/22 08/12/22 08/12/22 Rx Allergies Allergy/AdvReac Type Severity Reaction Status Date / Time amoxicillin Allergy Unknown Unknown Verified 08/02/22 16:32 ciprofloxacin Allergy Unknown Unknown Verified 08/02/22 16:32 levofloxacin Allergy Unknown Unknown Verified 08/02/22 16:32 clarithromycin Allergy rash/welps Verified 08/02/22 16:32 lisinopril Allergy unknown Verified 08/02/22 16:32 losartan Allergy rash Verified 08/02/22 16:32 spironolactone Allergy Unknown Verified 08/12/22 11:56 PFSH Acute PFSH: Medical History Actinic dermatitis Dermatitis Diabetes mellitus with hyperglycemia Essential (primary) hypertension History of CVA (cerebrovascular accident) Iron deficiency Lesion of bladder removed colo Pacemaker Surgical History History of colonoscopy 2010 History of permanent cardiac pacemaker placement January 13, 2022 at [facility] History of prostate surgery 2008 History of tonsillectomy Family History Brother FH: CVA (cerebrovascular accident) Father FH: CVA (cerebrovascular accident) Social History Smoking and tobacco status: former smoker Second hand smoke exposure: No Smoking risk assessment/counseling performed?: No Alcohol intake: never Desire information about alcohol rehabilitation?: No Counseling given: No Desire information about substance/drug rehabilitation?: No Counseling given: No Adopted: No Caregiver/support person: No Lives independently: Yes Household members: spouse Housing: House Marital status: Current occupational status: retired Current gender identity: Male Vitals/I&O/Wt Last Vital Signs Temp 100.0 F H 08/15/22 02:09 Pulse 86 08/15/22 01:21 Resp 22 H 08/15/22 01:21 BP 175/88 08/15/22 01:21 Pulse Ox 98 08/15/22 01:21 O2 Del Method 08/15/22 01:21 Weight last 48 hrs Weight 77.564 kg Physical Exam Narrative: General: Alert oriented x3, patient seen laying in bed appearing comfortable at this time, present at bedside. HEENT: Normocephalic, atraumatic, EOMI, breathing normally no acute respiratory distress. Posterior neck/shoulder area mass 2-3 cm present which is a lymph node. Cardio: Regular rate rhythm, normal S1-S2, Respiratory: Good bilateral air entry, no wheezes no rhonchi appreciated GI: Abdomen soft, nontender, nondistended, bowel sounds + Behavior: Appropriate and cooperative Extremities: No lower extremity edema present. Data 08/15/22 00:10 08/15/22 00:10 A&P Assessment and plan (1) Fever of unknown origin: (2) Acute hyponatremia: (3) Acute alteration in mental status: (4) Iron deficiency: (5) Vitamin D deficiency: (6) Diabetes mellitus with hyperglycemia: (7) Pacemaker: (8) Essential (primary) hypertension: Plan #Hyponatremia #Anion gap acidosis, possibly from decreased oral intake/dehydration #Dehydration #Fever of unknown origin #History of CABG #Hypertension #On chronic anticoagulation #History of stroke #Neck posterior enlarged lymph node #Chronic anemia #Bladder cancer #History of pneumonia several times #Diabetes mellitus, [id number] ? CRP 179, ESR 43. Temp 100 on arrival to ER. 102 temp at home ? Check respiratory viral panel, COVID, influenza ? Check blood cultures, urine culture ? Patient will need follow-up with ENT for enlarged lymph node at posterior neck area ? Await results of CSF however clinical suspicion of meningitis is low at this point ? Continue on vancomycin and Rocephin. Patient has several medication allergies ? Continue IV fluids normal saline 75 cc/h ? Check urine sodium, urine osmolality, serum osmolality ? Goal sodium correction 6-8 in 24 hours. ? Check sodium every 4 hour ? Case management referral. Patient's states she cannot take care of him at home -Patient does have chronic anemia and was being worked up outpatient. He has a colonoscopy scheduled for this upcoming Tuesday ? Patient's states that anemia has been going on since last few months. Colonoscopy and endoscopy were to be done to rule out GI source. There is no blood in stool or dark stools. Patient was supposed to hold Eliquis 2 days prior to the colonoscopy however because he had a temperature and this lymph node was swollen patient started taking Eliquis again since they were not going to make the appointment on Tuesday. Patient's states that they understand that there is a risk of dropping hemoglobin further however they are worried about risk of stroke at this time and would like to continue Eliquis. She has agreed that we will monitor the hemoglobin and if he starts to drop at that point we will have to hold Eliquis. Full code DVT prophylaxis: Lovenox Attestations Medical Necessity Statement*: Greater than 2 midnight stay for management of fever of unknown origin Coding Level of Care Code Acute Head And Neck Surgeon for [facility] Fwd Diagnoses Fever of unknown origin R50.9 Acute hyponatremia E87.1 Acute alteration in mental status R41.82 Iron deficiency E61.1 Vitamin D deficiency E55.9 Diabetes mellitus with hyperglycemia E11.65 Pacemaker Z95.0 Essential (primary) hypertension I10
[2022-08-15] MEDS: cefTRIAXone 2,000 MG in sodium chloride 0.9% (plus) 50 ML 100 MG IV (04:29)
[2022-08-15 04:33] LABS: CSF Mononuclear # 0.001 10^3/uL (50-90); Red Blood Cell CSF 0 10^3/uL (0-0); White Blood Cell CSF 1 /uL (0-5)
[2022-08-15] MEDS: vancomycin 1,250 MG/250 ML PIGGYBACK 250 MG IV ×2 (04:49→16:15)
[2022-08-15 04:50] LABS: Appearance CSF CLEAR (CLEAR); Color CSF COLORLESS (COLORLESS)
[2022-08-15 04:56] LABS: Total Protein CSF 36 mg/dL (15-45)
[2022-08-15 05:05] LABS: Glucose CSF 125 mg/dL (40-70)
[2022-08-15 05:07] LABS: Cyto Order Verification No Order
[2022-08-15 05:37] LABS: Mononuclear WBC CSF % 93 % (50-90)
[2022-08-15 05:38] LABS: Polynuclear WBC CSF % 7 % (0-10)
[2022-08-15 06:00] LABS: Adenovirus Not Detected (NOT DETECT); Chlamydia Pneumoniae Not Detected (NOT DETECT); Coronavirus 229E,HKU1,NL63,OC4 Not Detected (NOT DETECT); Human Metapneumovirus Not Detected (NOT DETECT); Human Rhinovirus/Enterovirus Not Detected (NOT DETECT); Influenza A Not Detected (NOT DETECT); Influenza A H1 Not Detected (NOT DETECT); Influenza A H1-2009 Not Detected (NOT DETECT); Influenza A H3 Not Detected (NOT DETECT); Influenza B Not Detected (NOT DETECT); Mycoplasma Pneumoniae Not Detected (NOT DETECT); Parainfluenza Virus Type 1 Not Detected (NOT DETECT); Parainfluenza Virus Type 2 Not Detected (NOT DETECT); Parainfluenza Virus Type 3 Not Detected (NOT DETECT); Parainfluenza Virus Type 4 Not Detected (NOT DETECT); Respiratory Syncytial Virus A Not Detected (NOT DETECT); Respiratory Syncytial Virus B Not Detected (NOT DETECT); SARS-COV-2 Not Detected (NOT DETECT)
[2022-08-15 07:24] LABS: Procalcitonin 0.34 ng/mL (0-0.5)
[2022-08-15] MEDS: sodium chloride 0.9% 1,000 ML 75 ML IV (12:51)
[2022-08-15] MEDS: cyclobenzaprine 10 mg Tablet 5 MG PO ×2 (12:55→22:37)
[2022-08-15 14:12] LABS: Anion Gap 12.1 (5-19); Blood Urea Nitrogen 18 mg/dL (8-23); Calcium 8.5 mg/dL (8.5-10.5); Carbon Dioxide 21 mmol/L (22-29); Chloride 92 mmol/L (98-107); Glucose 340 mg/dL (65-115); Osmolality Calculated 267 mOsm/kg (285-295); Potassium 4.1 mmol/L (3.5-5.1); Sodium 121 mmol/L (136-145)
[2022-08-15] MEDS: ferrous sulfate EC 325 mg Tablet PO (16:14)
[2022-08-15] MEDS: aspirin 81 mg EC Tablet PO (16:15)
[2022-08-15] MEDS: insulin lispro 100 unit/1 mL SUBCUT (17:32)
[2022-08-15] MEDS: apixaban 5 mg Tablet PO (17:32)
[2022-08-15 17:43] LABS: Glucose Point of Care 302 mg/dL (70-110)
--- NOTE | 2022-08-15 18:26 | PM.MISC ---
Miscellaneous Note Note: 36-year-old male with past medical history of hypertension diabetes CVA, CABG, status post pacemaker placement, came in with chief complaint of posterior neck and left arm pain, he was also complaining of fever at home, was febrile in ER, LP was done for possible meningitis, initial CSF analysis is clean, has been empirically started on antibiotics (vancomycin and ceftriaxone) pending culture.Noted T-max since admission 100.0.CT neck w con: No suspicious neck mass or bulky cervical lymphadenopathy, US soft tissue head neck: un remarkable. He has been admitted for the management of: Hyponatremia, appears to be acute on chronic euvolemic hyponatremia: Monitor BMP: Currently patient is complaining of leg cramps : secondary to hyponatremia, denies any other complaints of hyponatremia, has sound mentation, good appetite. Follow routine hyponatremia work-up, consider renal consult. Normal saline has been discontinued: As serum sodium is further trending down. For his fever: He is empirically on antibiotic. Patient also has chronic anemia: Is on chronic anticoagulation, pending FOBT, currently H&H is stable. May need EGD and colonoscopy. Family is interested in placement.Due to overall condition of the patient, with underlying significant comorbid conditions. His other vitals and labs have been reviewed. Will hold Eliquis for now: As he just had LP: We will resume shortly.
[2022-08-15] MEDS: sodium chloride 1 gm Tablet 2 GM PO (19:44)
[2022-08-15 21:07] LABS: Glucose Point of Care 214 mg/dL (70-110)
[2022-08-15] MEDS: insulin glargine 100 units/1 mL 20 UNIT SUBCUT (21:29)
[2022-08-16] VITALS: BP 131/68; PULSE 75; RESP 16; TEMP 36.4; O2SAT 91
[2022-08-16 03:35] LABS: Basophils % 0.4 %; Eosinophils # 0.2 10^3/uL (0.0-0.8); Eosinophils % 2.7 %; Hematocrit 27.7 % (42.0-52.0); Hemoglobin 7.7 g/dL (11.7-16.6); Lymphocytes # 0.8 10^3/uL (0.8-4.8); Lymphocytes % 11.1 %; Mean Corpuscular HGB Conc 27.8 g/dL (30.0-36.0); Mean Corpuscular Hemoglobin 19.8 pg (28.0-34.0); Mean Corpuscular Volume 71.2 fl (80-94); Mean Platelet Volume 10.3 fL (7.4-10.4); Monocytes # 0.6 10^3/uL (0.2-0.9); Monocytes % 8.5 %; Neutrophils # 5.78 10^3/uL (1.8-7.7); Neutrophils % 76.6 %; Nucleated Red Blood Cells % 0 %; Platelet Count 324 10^3/cmm (130-400); Red Blood Count 3.89 10^6/uL (4.1-5.3); Red Cell Distribution Width 19.1 % (12.1-15.1); White Blood Count 7.5 10^3/uL (4.0-10.0)
[2022-08-16 04:00] VITALS: BP 130/76; PULSE 74; RESP 16; TEMP 36.5; O2SAT 95
[2022-08-16 04:04] LABS: Alanine Aminotransferase 10 U/L (0-41); Albumin Level 2.9 g/dL (3.5-5.2); Alkaline Phosphatase 82 U/L (40-130); Anion Gap 13.1 (5-19); Aspartate Amino Transferase 13 U/L (0-40); Blood Urea Nitrogen 18 mg/dL (8-23); Calcium 8.6 mg/dL (8.5-10.5); Carbon Dioxide 23 mmol/L (22-29); Chloride 98 mmol/L (98-107); Globulin 3.2 g/dL (1.3-4.6); Glucose 236 mg/dL (65-115); Magnesium 2.2 mg/dL (1.7-2.3); Osmolality Calculated 280 mOsm/kg (285-295); Phosphorus 3.6 mg/dL (2.5-4.5); Potassium 4.1 mmol/L (3.5-5.1); Sodium 130 mmol/L (136-145); Total Bilirubin 0.2 mg/dL (0.15-1.2); Total Protein 6.1 g/dL (6.6-8.7)
[2022-08-16 04:11] LABS: Cortisol Random 7.35 ug/dL (2.47-19.5)
[2022-08-16 04:17] LABS: Thyroid Stimulating Hormone 1.94 uIU/mL (0.27-4.20)
[2022-08-16] MEDS: vancomycin 1,250 MG/250 ML PIGGYBACK 250 MG IV ×2 (04:33→17:31)
[2022-08-16] MEDS: cefTRIAXone 2,000 MG in sodium chloride 0.9% (plus) 50 ML 100 MG IV (04:33)
[2022-08-16 06:21] LABS: Glucose Point of Care 224 mg/dL (70-110)
[2022-08-16 07:19] VITALS: BP 142/61; PULSE 70; RESP 20; TEMP 36.7; O2SAT 94
[2022-08-16] MEDS: insulin lispro 100 unit/1 mL SUBCUT ×4 (10:31→21:24)
[2022-08-16] MEDS: sodium chloride 1 gm Tablet 2 GM PO ×2 (10:31→17:31)
[2022-08-16] MEDS: ascorbic acid 500 mg Tablet PO (10:32)
[2022-08-16] MEDS: atorvastatin 40 mg Tablet 20 MG PO (10:32)
[2022-08-16] MEDS: ferrous sulfate EC 325 mg Tablet PO (10:32)
--- NOTE | 2022-08-16 10:51 | PC.CHAP ---
Pastoral Care Encounter/Spiritual Assessment Type of Contact [] Declined cottonseed meat presser visit [] Patient/Family/Request visit [] Outpatient visit [] Follow-up visit [] Physician referral [] Code/Alert [X] Routine visit [] Staff referral [] Actively dying [] Patient sleeping [] Family support [] [] Out of room [] Palliative care [] [] Receiving care in room [] Pre-surgical visit [] Trauma [] Long length of stay [] ICU visit [] Other: Relational/Emotional Strength [X] Patient feels connected with others/family/visitors/staff [] Distress [] Loneliness/isolation [] Abandonment Spirituality of Patient [X] Person of Noelle [] Attends Anabaptist of their Noelle [X] Believes in Prayer [] Reads Bible or Restoration materials [] There are Spiritual issues to be addressed Manager Scientific Interventions [X] Prayer [X] Active listening [] Non-anxious presence [X] Spiritual/emotional support [] Crisis/trauma care [] Spiritual counseling [] Bereavement support [] Provided bereavement packet [] Provided Bible/devotional materials [] Provided toy/stuffed animal, coloring book to patient or family member [] Provided Communion [] Anointing/Erwin [] Salvation [X] Completed spiritual assessment [] Other: Impact on Illness or Injury [] Angry [] Fearful [] Anxious [] Often cries [] Exhaustion [] Unable to work [] Unable to attend nondenominational [] Unable to walk/stand [] Unable to read [] Unable to drive [] Unable to eat/drink [] Unable to sleep [] Unable to be with family [] Patient intubated [] Other: Summary Time spent with patient 15 M IN
[2022-08-16 11:26] LABS: Glucose Point of Care 407 mg/dL (70-110)
[2022-08-16 11:31] VITALS: BP 136/70; PULSE 74; RESP 20; TEMP 36.9; O2SAT 97
[2022-08-16 11:44] LABS: Add Urine Microscopic? NO; Charge for UA Resulting for Rev
[2022-08-16 11:49] LABS: Bilirubin Urine Neg (Negative); Blood Urine Neg (Negative); Glucose Urine UA 2+ (Normal); Ketones Urine Negative (Negative); Leukocyte Esterase Urine Negative (Negative); Nitrate Urine Negative (Negative); Protein Urine Neg (Negative); Urine Appearance Clear (CLEAR); Urine Color Yellow (Yellow); Urobilinogen Urine Norm (Negative); pH Urine 5 (5-7)
[2022-08-16 16:00] VITALS: BP 135/72; PULSE 68; RESP 18; TEMP 36.9; O2SAT 96
[2022-08-16 16:18] LABS: Vancomycin Trough 15.1 ug/mL (10-15)
[2022-08-16 17:16] LABS: Glucose Point of Care 161 mg/dL (70-110)
[2022-08-16 20:00] VITALS: BP 170/74; PULSE 76; RESP 13; TEMP 36.7; O2SAT 97
--- NOTE | 2022-08-16 20:11 | PC.NURSE ---
Patient refused pain meds, stating that the pain comes and goes, and it doesn't last. Patient resting in bed, locked in lowest position with both side rails up and call light within reach. Patient stated no further needs at this time.
[2022-08-16 21:23] LABS: Glucose Point of Care 150 mg/dL (70-110)
[2022-08-16] MEDS: insulin glargine 100 units/1 mL 20 UNIT SUBCUT (21:24)
[2022-08-17] VITALS (7 sets, daily range): BP systolic 131–154; BP diastolic 66–81; PULSE 63–76; RESP 16–18; TEMP 36.7–37; O2SAT 94–100
[2022-08-17] MEDS: cefTRIAXone 2,000 MG in sodium chloride 0.9% (plus) 50 ML 100 MG IV (03:57)
[2022-08-17] MEDS: vancomycin 1,250 MG/250 ML PIGGYBACK 250 MG IV (04:39)
[2022-08-17 06:39] LABS: Glucose Point of Care 193 mg/dL (70-110)
[2022-08-17] MEDS: ferrous sulfate EC 325 mg Tablet PO (08:36)
[2022-08-17] MEDS: atorvastatin 40 mg Tablet 20 MG PO (08:36)
[2022-08-17] MEDS: sodium chloride 1 gm Tablet 2 GM PO ×2 (08:36→17:41)
[2022-08-17] MEDS: ascorbic acid 500 mg Tablet PO (08:36)
[2022-08-17] MEDS: insulin lispro 100 unit/1 mL SUBCUT ×4 (08:40→21:39)
--- NOTE | 2022-08-17 08:46 | USCV_ITS ---
Misha Covarrubias Age: 86 Gender: M : 1935 Exam Date: 08/17/2022 09:25 Ordering Phys: Miguelina Liang MD Technologist: Ulisses Melgar Exam Location: [place] Indication: cardio mypopathty BP: 124 / 72 HR: 55 Rhythm: Sinus Technical Quality: Adequate MEASUREMENTS (Male / Female) Normal Values 2D ECHO LV Diastolic Diameter PLAX 4.8 cm 4.2 - 5.9 / 3.9 - 5.3 cm LV Systolic Diameter PLAX 3.6 cm IVS Diastolic Thickness 1.3 cm 0.6 - 1.0 / 0.6 - 0.9 cm IVS Systolic Thickness 1.5 cm LVPW Diastolic Thickness 1.3 cm 0.6 - 1.0 / 0.6 - 0.9 cm LVPW Systolic Thickness 1.4 cm LVOT Diameter 2.1 cm LV Ejection Fraction 2D Teich 44.8 % LA Diameter 4.3 cm Aorta at Sinotubular Diameter 2.9 cm M-MODE Aortic Annulus Diameter 4.0 cm LA Ao Ratio MM 1.1 MV E Point Septal Separation 1.7 cm DOPPLER AV Peak Velocity 127.0 cm/s LVOT Peak Velocity 87.0 cm/s AV Area Cont Eq vti 2.2 cm squared AV Area Cont Eq pk 2.3 cm squared TR Peak Velocity 113.0 cm/s TR Peak Gradient 5.1 mmHg Right Atrial Pressure 3.0 mmHg Pulmonary Artery Systolic Pressu 8.1 mmHg RV Acceleration Time 0.1 s FINDINGS Left Ventricle Normal LV size with diminished ejection fraction of 44%. Diffuse hypokinesia of the left ventricle, more so of the apex. Right Ventricle Could not be visualized well Right Atrium Could not be visualized well Left Atrium Possibly of normal size Mitral Valve Mild mitral valve regurgitation. Thickened mitral valve. Aortic Valve Thickened aortic valve. Tricuspid Valve Tricuspid valve not well visualized. Pulmonic Valve Pulmonic valve not well visualized. Pericardium No pericardial effusion. Aorta Normal aortic annulus size. IVC Inferior vena cava not visualized. CONCLUSIONS Normal LV size with diminished ejection fraction of 44%. Wall motion abnormality as mentioned above Thickened mitral valve. Mild mitral valve regurgitation. Thickened aortic valve. Technically difficult study because of the poor ultrasonic window. No similar previous studies are available for comparison Dr Robin Cabral MD [facility] (Electronically Signed) Final Date: 17 August 2022 20:29 S
[2022-08-17 11:41] LABS: Glucose Point of Care 267 mg/dL (70-110)
--- NOTE | 2022-08-17 16:42 | P.PN_ITS ---
Subjective Subjective: c/o pain over lower back today in addition to upper back. Has had spams through the day . Echocardiogram is pending. Afberile over 48 hrs Medications: Reviewed: Yes Vitals/I&O/Wt Last Vital Signs Temp 98.2 F 08/17/22 15:42 Pulse 76 08/17/22 15:42 Resp 16 08/17/22 15:42 BP 148/78 08/17/22 15:42 Pulse Ox 99 08/17/22 15:42 O2 Del Method 08/17/22 15:42 08/17/22 08/17/22 08/17/22 06:59 14:59 22:59 Intake Total 300 / 1130 400 / 400 Output Total 450 / 650 750 / 750 Balance -150 / 480 -350 / -350 Physical Exam Narrative: General: No acute distress, AO x\3 HEENT: PERRLA, pupils bilaterally equal and reactive, pallors not present Chest: Normal vesicular breath sounds, no added sounds, equal good air entry bilaterally CVS: S1-S2 regular, no murmurs, no tachycardia, no gallops, no rubs Abdomen: Soft, nontender, no organomegaly, bowel sounds present Neuro: No focal deficits, no facial deformity, AO x3, power 5/5 in all limbs while laying in bed Data 08/16/22 02:42 08/16/22 02:42 Micro: Microbiology 08/15/22 04:05 Gram Stain - Final Cerebrospinal Fluid CSF Culture - Preliminary A&P Assessment and plan (1) Fever of unknown origin: (2) Acute hyponatremia: (3) Acute alteration in mental status: (4) Iron deficiency: (5) Vitamin D deficiency: (6) Diabetes mellitus with hyperglycemia: (7) Pacemaker: (8) Essential (primary) hypertension: Plan Patient admitted to the hospital on August 15, 2022 with chief complaints of pain over his upper back and neck. Per patient and his at bedside, patient has been having these complaints since 2 to 3 days prior to presentation. 2 days ago he went to see an server cashier, and his neck needed to be adjusted to be placed in the slit-lamp following which she experienced acute sharp pain that started in the upper part of his back and radiated into bilateral shoulders. Initially his thought that this was related to spasm from positioning and was applying ice and heat packs at home however when there was no significant relief she started massaging his neck. Thereafter she noticed an enlarged lymph node in the back of his neck. He also developed a low-grade fever of about 100 ?F at home which prompted the ER visit eventually. Upon presentation here he underwent evaluation with CT of the chest which was negative for aortic dissection. He also underwent CT of the neck which showed no suspicious neck mass or bulky cervical lymphadenopathy. CT of the cervical and thoracic spine was additionally without any acute abnormalities. His labs were however abnormal, sodium was 126, ESR was 43 and CRP was 179. Patient had a low-grade fever. Due to suspicion for meningitis patient underwent lumbar puncture in the emergency room. CSF was overall unremarkable for infection. Patient had no other signs of meningoencephalitis. He had a fever of 100 Fahrenheit during this admission. Patient was started empirically on ceftriaxone and vancomycin initially. states she has pulled some ticks of the patient in the past month. On asking specifically patient states that his back pain and deconditioning originally started after he underwent AICD placement in March of this year. He started to do cardiac rehab after his AICD placement however was an extremely weak and unable to do so. He went back to his primary envelope press operator and he needed to reset his AICD settings following which his exercise capacity improved. He was able to do cardiac rehab, however has had several days in which she has doubled over on the machines due to pain in his back. His antoine villagomez noted an occasional neck lump even in the past. Because of noted anemia he was being planned for EGD and colonoscopy as outpatient but this is yet to happen. Reviewing notes from his PCP patient has complained of increasing generalized weakness since at least July of this year. He has complained of low energy levels, being unsteady on his feet. At a baseline he was able to walk independently but more recently patient has had to sit on a bench to shower, he is only able to ambulate few short steps within the room. Plan: No clear etiology. For patient's complaints of back shoulder and upper chest pain. Reports these to be severe spasms not adequately relieved by muscle relaxants at this time. Additionally his CRP is elevated for unclear reasons. He was febrile with a low-grade fever upon presentation the cause of which is additionally unclear. Afberile now Infectious work-up is thus far negative for any pneumonia. LP not suggestive of meningoencephalitis. No clinical signs and symptoms to suggest this either. Respiratory viral panel is negative. Urine analysis not indicative of a UTI. Will check tick panel. d/c vancomycin, reduce ceftriaxone 1g iv q24h Given pain in the left shoulder, upper chest, and elevated CRP concern for possible pericarditis especially since symptoms appear to have started after recent AICD placement. We will go ahead and evaluate with an echocardiogram for any pericardial effusion or pericarditis. Alternate possibilities may be autoimmune processes such as dermatomyositis, however unlikely to present for the first time at age 86. Patient is on statins, will check CK for any evidence of rhabdomyolysis. Optimize pain medication, will add IV Toradol and see if anti-inflammatories appeared to control his pain better. Resume oxycodone and add lidocaine patch to optimize pain control For his hyponatremia, recheck NA with daily labs currently on supplemental salt tablets Anemia: Chronic, 7.7 on last check, FOBT pending Physical therapy assessment appreciated. Significant limitation noted in mob ility because of pain. Intolerant of less than 5 degrees of cervical rotation bilaterally.Per review of his outpatient notes and history provided by him and his spouse patient appears to have gone severe significant deconditioning since his recent AICD placement. is unable to care for him at home due to deconditioning and ADL dependence. Will continue to work on appropriate dispo planning Attestations Medical Necessity Statement*: pending echocardiogram , tick panel , appropriate disposition planning Coding Level of Care Code Acute Frame Polisher for [facility] Fwd Diagnoses Fever of unknown origin R50.9 Acute hyponatremia E87.1 Acute alteration in mental status R41.82 Iron deficiency E61.1 Vitamin D deficiency E55.9 Diabetes mellitus with hyperglycemia E11.65 Pacemaker Z95.0 Essential (primary) hypertension I10
--- NOTE | 2022-08-17 16:42 | P.PN_ITS ---
Subjective Subjective: Patient complains of significant back spasm especially affecting the upper extremity. States that pain is over his upper neck radiating bilaterally and down over his spine. Medications: Reviewed: Yes Vitals/I&O/Wt Last Vital Signs Temp 98.2 F 08/17/22 15:42 Pulse 76 08/17/22 15:42 Resp 16 08/17/22 15:42 BP 148/78 08/17/22 15:42 Pulse Ox 99 08/17/22 15:42 O2 Del Method 08/17/22 15:42 08/17/22 08/17/22 08/17/22 06:59 14:59 22:59 Intake Total 300 / 1130 400 / 400 Output Total 450 / 650 750 / 750 Balance -150 / 480 -350 / -350 Physical Exam Narrative: General: No acute distress, AO x\3 HEENT: PERRLA, pupils bilaterally equal and reactive, pallors not present Chest: Normal vesicular breath sounds, no added sounds, equal good air entry bilaterally CVS: S1-S2 regular, no murmurs, no tachycardia, no gallops, no rubs Abdomen: Soft, nontender, no organomegaly, bowel sounds present Neuro: No focal deficits, no facial deformity, AO x3, power 5/5 in all limbs Data 08/16/22 02:42 08/16/22 02:42 Micro: Microbiology 08/15/22 04:05 Gram Stain - Final Cerebrospinal Fluid CSF Culture - Preliminary A&P Assessment and plan (1) Fever of unknown origin: (2) Acute hyponatremia: (3) Acute alteration in mental status: (4) Iron deficiency: (5) Vitamin D deficiency: (6) Diabetes mellitus with hyperglycemia: (7) Pacemaker: (8) Essential (primary) hypertension: Plan Patient admitted to the hospital on August 15, 2022 with chief complaints of pain over his upper back and neck. Per patient and his at bedside, patient has been having these complaints since 2 to 3 days prior to presentation. 2 days ago he went to see an lumber marker, and his neck needed to be adjusted to be placed in the slit-lamp following which she experienced acute sharp pain that started in the upper part of his back and radiated into bilateral shoulder s. Initially his thought that this was related to spasm from positioning and was applying ice and heat packs at home however when there was no significant relief she started massaging his neck. Thereafter she noticed an enlarged lymph node in the back of his neck. He also developed a low-grade fever of about 100 ?F at home which prompted the ER visit eventually. Upon presentation here he underwent evaluation with CT of the chest which was negative for aortic dissection. He also underwent CT of the neck which showed no suspicious neck mass or bulky cervical lymphadenopathy. CT of the cervical and thoracic spine was additionally without any acute abnormalities. His labs were however abnormal, sodium was 126, ESR was 43 and CRP was 179. Patient had a low-grade fever. Due to suspicion for meningitis patient underwent lumbar puncture in the emergency room. CSF was overall unremarkable for infection. Patient had no other signs of meningoencephalitis. He had a fever of 100 Fahrenheit during this admission. Patient was started empirically on ceftriaxone and vancomycin initially. states she has pulled some ticks of the patient in the past month. On asking specifically patient states that his back pain and deconditioning originally started after he underwent AICD placement in March of this year. He started to do cardiac rehab after his AICD placement however was an extremely weak and unable to do so. He went back to his primary ethernet network architect and he needed to reset his AICD settings following which his exercise capacity improved. He was able to do cardiac rehab, however has had several days in which she has doubled over on the machines due to pain in his back. His has noted an occasional neck lump even in the past. Because of noted anemia he was being planned for EGD and colonoscopy as outpatient but this is yet to happen. Reviewing notes from his PCP patient has complained of increasing generalized weakness since at least July of this year. He has complained of low energy levels, being unsteady on his feet. At a baseline he was able to walk independently but more recently patient has had to sit on a bench to shower, he is only able to ambulate few short steps within the room. Plan: No clear etiology. For patient's complaints of back shoulder and upper chest pain. Reports these to be severe spasms not adequately relieved by muscle relaxants at this time. Additionally his CRP is elevated for unclear reasons. He was febrile with a low-grade fever upon presentation the cause of which is additionally unclear. Infectious work-up is thus far negative for any pneumonia. LP not suggestive of meningoencephalitis. No clinical signs and symptoms to suggest this either. Respiratory viral panel is negative. Urine analysis not indicative of a UTI. Will check tick panel. Given pain in the left shoulder, upper chest, and elevated CRP concern for possible pericarditis especially since symptoms appear to have started after recent AICD placement. We will go ahead and evaluate with an echocardiogram for any pericardial effusion or pericarditis. Alternate possibilities may be autoimmune processes such as dermatomyositis, however unlikely to present for the first time at age 86. Patient is on statins, will check CK for any evidence of rhabdomyolysis. Optimize pain medication, will add IV Toradol and see if anti-inflammatories appeared to control his pain better. Resume oxycodone. For his hyponatremia, recheck NA with daily labs currently on supplemental salt tablets Anemia: Chronic, 7.7 on last check, FOBT pending Physical therapy assessment appreciated. Significant limitation noted in mobility because of pain. Intolerant of less than 5 degrees of cervical rotation bilaterally.Per review of his outpatient notes and history provided by him and his spouse patient appears to have gone severe significant deconditioning since his recent AICD placement. is unable to care for him a t home due to deconditioning and ADL dependence. Will continue to work on appropriate dispo planning Attestations Medical Necessity Statement*: ongoing evaluation for fever, CRP, deconditioning Coding Level of Care Code Acute Sleeve Fixer for Hattie Shaffer Diagnoses Fever of unknown origin R50.9 Acute hyponatremia E87.1 Acute alteration in mental status R41.82 Iron deficiency E61.1 Vitamin D deficiency E55.9 Diabetes mellitus with hyperglycemia E11.65 Pacemaker Z95.0 Essential (primary) hypertension I10
[2022-08-17 16:54] LABS: Basophils % 0.3 %; Eosinophils % 0.4 %; Hematocrit 26.5 % (42.0-52.0); Hemoglobin 7.6 g/dL (11.7-16.6); Lymphocytes # 0.3 10^3/uL (0.8-4.8); Lymphocytes % 3.2 %; Mean Corpuscular HGB Conc 28.7 g/dL (30.0-36.0); Mean Corpuscular Hemoglobin 20.2 pg (28.0-34.0); Mean Corpuscular Volume 70.3 fl (80-94); Mean Platelet Volume 10.1 fL (7.4-10.4); Monocytes # 0.5 10^3/uL (0.2-0.9); Monocytes % 5.1 %; Neutrophils # 8.36 10^3/uL (1.8-7.7); Neutrophils % 90.5 %; Nucleated Red Blood Cells % 0 %; Platelet Count 371 10^3/cmm (130-400); Red Blood Count 3.77 10^6/uL (4.1-5.3); Red Cell Distribution Width 19.2 % (12.1-15.1); White Blood Count 9.3 10^3/uL (4.0-10.0)
[2022-08-17 16:55] LABS: Glucose Point of Care 283 mg/dL (70-110)
--- NOTE | 2022-08-17 17:00 | CTR_ITS ---
PROCEDURE INFORMATION: Exam: CT Lumbar Spine Without Contrast Exam date and time: 08/17/2022 8:44 PM Age: 86 years old Clinical indication: Patient HX: C/O worsening low back pain; Additional info: C/O increasing pain over lower back, evalaute for any fractures/dislocation TECHNIQUE: Imaging protocol: Computed tomography of the lumbar spine without contrast. Radiation optimization: All CT scans at this facility use at least one of these dose optimization techniques: automated exposure control; mA and/or kV adjustment per patient size (includes targeted exams where dose is matched to clinical indication); or iterative reconstruction. COMPARISON: CT thoracic spin wo con* [id number] 08/10/2022 8:56 PM RADIATION DOSE METRICS: Total DLP (mGy-cm): 806.5 FINDINGS: Tubes, catheters and devices: The heart is quite large with partially assessed pacing device. Bones/joints: No acute fracture or acute subluxation identified. Very severe L2-S1 DJD. Severe lower lumbar facet arthropathy. Moderate broad-based disc bulges are seen at L2-S1 and these cause moderate mass effect. Diffusely, the central canal AP dimension measures at least 9 mm. A few old left lumbar transverse process deformities. Lungs: Hazy areas of lung base atelectasis or scarring. Urinary bladder: Partially assessed large bladder with possible left bladder diverticulum. Vasculature: Severe diffuse atherosclerotic disease. Soft tissues: Unremarkable. Other findings: Soft [id number]: Unremarkable. CT/CT lumbar spine wo con* [id number] IMPRESSION: 1. Moderate to severe diffuse lumbar degenerative change at L2-S1. 2. No acute fracture or focal bone destruction noted. 3. Other chronic findings above.
[2022-08-17 18:55] LABS: Alanine Aminotransferase 11 U/L (0-41); Albumin Level 3.3 g/dL (3.5-5.2); Alkaline Phosphatase 86 U/L (40-130); Anion Gap 18.3 (5-19); Aspartate Amino Transferase 12 U/L (0-40); Blood Urea Nitrogen 20 mg/dL (8-23); Calcium 8.8 mg/dL (8.5-10.5); Carbon Dioxide 20 mmol/L (22-29); Chloride 100 mmol/L (98-107); Globulin 3.2 g/dL (1.3-4.6); Glucose 262 mg/dL (65-115); Osmolality Calculated 290 mOsm/kg (285-295); Potassium 4.3 mmol/L (3.5-5.1); Sodium 134 mmol/L (136-145); Total Bilirubin 0.2 mg/dL (0.15-1.2); Total Protein 6.5 g/dL (6.6-8.7)
--- NOTE | 2022-08-17 19:50 | PC.NURSE ---
Patient was educated to not leave urinal against skin and scrotum as constant as he has due to risk of developing skin breakdown. Patient verbalized understanding but kept urinal against body. Teaching reinforcement needed. Patient resting in bed, locked in lowest position with both side rails up, with side table and call light within reach. Patient verbalized no further needs at this time.
[2022-08-17 20:33] LABS: Glucose Point of Care 234 mg/dL (70-110)
[2022-08-17] MEDS: insulin glargine 100 units/1 mL 20 UNIT SUBCUT (21:39)
[2022-08-18] VITALS: BP 148/70; PULSE 58; RESP 17; TEMP 36.8; O2SAT 96
[2022-08-18] MEDS: cefTRIAXone 1,000 MG in sodium chloride 0.9% (plus) 50 ML 100 MG IV (03:38)
[2022-08-18 03:57] LABS: Basophils % 0.6 %; Eosinophils # 0.3 10^3/uL (0.0-0.8); Eosinophils % 3.7 %; Hematocrit 26.1 % (42.0-52.0); Hemoglobin 7.4 g/dL (11.7-16.6); Lymphocytes # 0.8 10^3/uL (0.8-4.8); Lymphocytes % 11.2 %; Mean Corpuscular HGB Conc 28.4 g/dL (30.0-36.0); Mean Corpuscular Hemoglobin 19.9 pg (28.0-34.0); Mean Corpuscular Volume 70.2 fl (80-94); Mean Platelet Volume 9.8 fL (7.4-10.4); Monocytes # 0.5 10^3/uL (0.2-0.9); Monocytes % 7.2 %; Neutrophils # 5.57 10^3/uL (1.8-7.7); Neutrophils % 76.6 %; Nucleated Red Blood Cells % 0 %; Platelet Count 366 10^3/cmm (130-400); Red Blood Count 3.72 10^6/uL (4.1-5.3); Red Cell Distribution Width 19.2 % (12.1-15.1); White Blood Count 7.3 10^3/uL (4.0-10.0)
[2022-08-18 04:00] VITALS: BP 154/73; PULSE 64; RESP 16; TEMP 37.1; O2SAT 98
[2022-08-18 04:43] LABS: Alanine Aminotransferase 13 U/L (0-41); Albumin Level 3.2 g/dL (3.5-5.2); Alkaline Phosphatase 75 U/L (40-130); Anion Gap 14.7 (5-19); Aspartate Amino Transferase 15 U/L (0-40); Blood Urea Nitrogen 17 mg/dL (8-23); Calcium 7.1 mg/dL (8.5-10.5); Carbon Dioxide 22 mmol/L (22-29); Chloride 105 mmol/L (98-107); Globulin 2.8 g/dL (1.3-4.6); Glucose 102 mg/dL (65-115); Osmolality Calculated 288 mOsm/kg (285-295); Potassium 3.7 mmol/L (3.5-5.1); Sodium 138 mmol/L (136-145); Total Bilirubin 0.2 mg/dL (0.15-1.2)
[2022-08-18 06:24] LABS: Glucose Point of Care 167 mg/dL (70-110)
[2022-08-18 08:00] VITALS: BP 139/79; PULSE 76; RESP 16; TEMP 36.4; O2SAT 98
[2022-08-18] MEDS: insulin lispro 100 unit/1 mL SUBCUT ×4 (08:27→21:20)
[2022-08-18] MEDS: sodium chloride 1 gm Tablet 2 GM PO (08:28)
[2022-08-18] MEDS: ferrous sulfate EC 325 mg Tablet PO (08:28)
[2022-08-18] MEDS: atorvastatin 40 mg Tablet 20 MG PO (08:28)
[2022-08-18] MEDS: ascorbic acid 500 mg Tablet PO (08:28)
[2022-08-18] MEDS: lidocaine 5% Patch 1 PATCH TOPICAL (08:33)
--- NOTE | 2022-08-18 11:01 | PC.SOCIAL ---
IMM update IMM updated with patient and . Verbalized an understanding. Copy Pg 2 provided. Initialled, dated, timed, and placed in chart.
[2022-08-18 11:35] VITALS: BP 134/64; PULSE 78; RESP 14; TEMP 36.4; O2SAT 98
[2022-08-18 12:27] LABS: Glucose Point of Care 224 mg/dL (70-110)
[2022-08-18 15:00] LABS: Lyme AB Screen <0.90 index
[2022-08-18 16:00] VITALS: BP 130/67; PULSE 68; RESP 16; TEMP 36.7; O2SAT 95
--- NOTE | 2022-08-18 16:24 | PM.PN ---
Subjective Subjective: Hemoglobin drifting down to 7.4 today; patient has not had a bowel movement yet to provide a specimen for FOBT. He is able to pass flatus. He remains afebrile, hemodynamically stable. CT of his lumbar spine returned negative. States that his pain is slightly better after addition of oxycodone Toradol and lidocaine patch, however when attempting to sit up in bed he is in excruciating pain. Wincing and wants to be placed back in a recumbent position. Medications: Reviewed: Yes Vitals/I&O/Wt Last Vital Signs Temp 98.1 F 08/18/22 16:00 Pulse 68 08/18/22 16:00 Resp 16 08/18/22 16:00 BP 130/67 08/18/22 16:00 Pulse Ox 95 08/18/22 16:00 O2 Del Method 08/18/22 11:35 08/18/22 08/18/22 08/18/22 06:59 14:59 22:59 Intake Total 50 / 690 480 / 480 Output Total 700 / 1750 Balance -650 / -1060 480 / 480 Physical Exam Narrative: General: No acute distress, AO x3 HEENT: PERRLA, pupils bilaterally equal and reactive, pallors not present Chest: Normal vesicular breath sounds, no added sounds, equal good air entry bilaterally CVS: S1-S2 regular, no murmurs, no tachycardia, no gallops, no rubs Abdomen: Soft, nontender, no organomegaly, bowel sounds present Neuro: No focal deficits, no facial deformity, AO x3, power 5/5 in all limbs Data 08/18/22 03:18 08/18/22 03:18 Micro: Microbiology 08/15/22 04:05 Gram Stain - Final Cerebrospinal Fluid CSF Culture - Final A&P Assessment and plan (1) Acute hyponatremia: (2) Acute alteration in mental status: (3) Iron deficiency: (4) Vitamin D deficiency: (5) Diabetes mellitus with hyperglycemia: (6) Pacemaker: (7) Essential (primary) hypertension: (8) Fever: Plan Patient admitted to the hospital on August 15, 2022 with chief complaints of pain over his upper back and neck. Per patient and his at bedside, patient has been having these complaints since 2 to 3 days prior to presentation. 2 days ago he went to see an core shaper top, and his neck needed to be adjusted to be placed in the slit-lamp following which she experienced acute sharp pain that started in the upper part of his back and radiated into bilateral shoulders. Initially his thought that this was related to spasm from positioning and was applying ice and heat packs at home however when there was no significant relief she started massaging his neck. Thereafter she noticed an enlarged lymph node in the back of his neck. He also developed a low-grade fever of about 100 ?F at home which prompted the ER visit eventually. Upon presentation here he underwent evaluation with CT of the chest which was negative for aortic dissection. He also underwent CT of the neck which showed no suspicious neck mass or bulky cervical lymphadenopathy. CT of the cervical and thoracic spine was additionally without any acute abnormalities. His labs were however abnormal, sodium was 126, ESR was 43 and CRP was 179. Patient had a low-grade fever. Due to suspicion for meningitis patient underwent lumbar puncture in the emergency room. CSF was overall unremarkable for infection. Patient had no other signs of meningoencephalitis. He had a fever of 100 Fahrenheit during this admission. Patient was started empirically on ceftriaxone and vancomycin initially. states she has pulled some ticks of the patient in the past month. On asking specifically patient states that his back pain and deconditioning originally started after he underwent AICD placement in March of this year. He started to do cardiac rehab after his AICD placement however was an extremely weak and unable to do so. He went back to his primary operations manager/coordinator and he needed to reset his AICD settings following which his exercise capacity improved. He was able to do cardiac rehab, however has had several days in which she has doubled over on the machines due to pain in his back. His has noted an occasional neck lump even in the past. Because of noted anemia he was being planned for EGD and colonoscopy as outpatient but this is yet to happen. Reviewing notes from his PCP patient has complained of increasing generalized weakness since at least July of this year. He has complained of low energy levels, being unsteady on his feet. At a baseline he was able to walk independently but more recently patient has had to sit on a bench to shower, he is only able to ambulate few short steps within the room. Plan: No clear etiology for patient's complaints of back shoulder and upper chest pain. Reports these to be severe spasms not adequately relieved by muscle relaxants at this time. Additionally his CRP is elevated for unclear reasons. He was febrile with a low-grade fever upon presentation the cause of which is additionally unclear. Afberile now Infectious work-up is thus far negative for any pneumonia. LP not suggestive of meningoencephalitis. No clinical signs and symptoms to suggest this either. Respiratory viral panel is negative. Urine analysis not indicative of a UTI. Panel is currently pending d/c vancomycin, status post ceftriaxone 1g iv q24h between August 15 to August 17. Will change to doxycycline 100 mg p.o. twice daily while tick panel is pending. Echocardiogram is negative for any pericardial effusion or pericarditis. Alternate possibilities may be autoimmune processes such as dermatomyositis, however unlikely to present for the first time at age 86. Patient is on statins, will check CK for any evidence of rhabdomyolysis. His pain is slightly better controlled after addition of oxycodone, Toradol and lidocaine patch, however still with significant spasms involving his entire back. Yesterday he started to also complain of lower back pain. CT of the lumbar spine was performed which was negative for any acute abnormalities. He has a maculopapular itchy rash over bilateral inner thigh and along his beltline, however patient and his state that this is not new.. Patient has several contact allergies and often requires topical treatment at home. The rash does not appear unusual to them. No rash noted anywhere else.no herpetic rash. For his hyponatremia, Na is corrected at 138. Reduce NA cl to 1gm TID from 2 g TID Anemia: Chronic, 7.4 on last check, FOBT pending but pt constipated. Hb drifting down, patient c/o generalized weakness, Eliquis is on hold as bleeding has not been excluded. Will discuss with surgery to evaluate for UGIE and colonoscopy current admission Physical therapy assessment appreciated. Significant limitation noted in mobility because of pain. Intolerant of less than 5 degrees of cervical rotation bilaterally. cause of significant limittaion remains unclear, all relevant imaging remains negative. will obtain ortho consult for any further relevant evalaution. Per review of his outpatient notes and history provided by him and his spouse patient appears to have gone severe significant deconditioning since his AICD placement. is unable to care for him at home due to deconditioning and ADL dependence. Will continue to work on appropriate disposition planning Attestations Medical Necessity Statement*: Hb drifting down, evaluate for endoscopy, significant limitation in activity, ortho consult Coding Level of Care Code Acute Private Secretary for Chg Fwd Diagnoses Acute hyponatremia E87.1 Acute alteration in mental status R41.82 Iron deficiency E61.1 Vitamin D deficiency E55.9 Diabetes mellitus with hyperglycemia E11.65 Pacemaker Z95.0 Essential (primary) hypertension I10 Fever R50.9
[2022-08-18 16:41] LABS: Glucose Point of Care 213 mg/dL (70-110)
[2022-08-18] MEDS: sodium chloride 1 gm Tablet PO (17:09)
[2022-08-18 17:34] LABS: Creatine Phosphokinase 23 U/L (39-308)
[2022-08-18 20:00] VITALS: BP 125/68; PULSE 67; RESP 16; TEMP 36.6; O2SAT 98
[2022-08-18 21:08] LABS: Glucose Point of Care 182 mg/dL (70-110)
[2022-08-18] MEDS: insulin glargine 100 units/1 mL 20 UNIT SUBCUT (21:21)
[2022-08-19] VITALS (9 sets, daily range): BP systolic 117–150; BP diastolic 68–75; PULSE 52–76; RESP 16–19; TEMP 36.2–36.9; O2SAT 94–100
[2022-08-19 05:28] LABS: Basophils % 0.6 %; Eosinophils # 0.3 10^3/uL (0.0-0.8); Eosinophils % 5.2 %; Hematocrit 26.2 % (42.0-52.0); Hemoglobin 7.4 g/dL (11.7-16.6); Lymphocytes % 15.6 %; Mean Corpuscular HGB Conc 28.2 g/dL (30.0-36.0); Mean Corpuscular Volume 70.8 fl (80-94); Mean Platelet Volume 10.1 fL (7.4-10.4); Monocytes # 0.5 10^3/uL (0.2-0.9); Monocytes % 7.2 %; Neutrophils % 70.5 %; Nucleated Red Blood Cells % 0 %; Platelet Count 423 10^3/cmm (130-400); Red Cell Distribution Width 19.4 % (12.1-15.1); White Blood Count 6.5 10^3/uL (4.0-10.0)
[2022-08-19 05:55] LABS: Albumin Level 3.2 g/dL (3.5-5.2); Alkaline Phosphatase 77 U/L (40-130); Anion Gap 13.5 (5-19); Aspartate Amino Transferase 13 U/L (0-40); Blood Urea Nitrogen 16 mg/dL (8-23); Calcium 8.9 mg/dL (8.5-10.5); Carbon Dioxide 23 mmol/L (22-29); Chloride 106 mmol/L (98-107); Globulin 2.8 g/dL (1.3-4.6); Glucose 106 mg/dL (65-115); Osmolality Calculated 290 mOsm/kg (285-295); Potassium 3.5 mmol/L (3.5-5.1); Sodium 139 mmol/L (136-145); Total Bilirubin 0.2 mg/dL (0.15-1.2)
[2022-08-19 06:08] LABS: Alanine Aminotransferase 12 U/L (0-41)
[2022-08-19 06:29] LABS: Glucose Point of Care 128 mg/dL (70-110)
[2022-08-19 06:29] LABS: Glucose Point of Care 103 mg/dL (70-110)
[2022-08-19] MEDS: sodium chloride 1 gm Tablet PO ×2 (08:16→17:17)
--- NOTE | 2022-08-19 08:16 | PM.CONSULT ---
Providers/Reason For Consult Consulting Physician/Specialty*: Hospitalist Reason for Consult*: Back and neck pain Attending Physician: Miguelina Liang MD Primary Care Provider: ELIESER Oglesby History of Present Illness History of Present Illness Misha Covarrubias is a 86 year old male has been having mostly neck pain. Started couple weeks ago when he was at the eye doctor and had to look up. At this point patient's family member stated that when she puts heat on it it seems to help it but only for short period of time. Patient sounds like he is getting a GI scope tomorrow due to low hemoglobin. Review of Systems Narrative: History was taken from family member at bedside. Patient was resting comfortably. Const: Denies: diaphoresis ENMT: Reports: throat pain and uvular edema Card: Reports: chest pain Resp: Denies: dyspnea GI: Denies: abdominal pain, vomiting or melena : Denies: dysuria Skin/Breast: Denies: rash Neuro: Reports: confusion (Mild); Denies: headache(s) Efren/Lymph: Denies: easy bruising Medications/Allergies Home Medications Medication Instructions Recorded Confirmed Last Taken Type apixaban 5 mg tablet (Eliquis) 5 mg PO BID 12/09/20 08/16/22 08/12/22 History aspirin 81 mg tablet,delayed 81 mg PO DAILY 12/09/20 08/16/22 08/12/22 History release (Adult Low Dose Aspirin) metformin 500 mg tablet 500 mg PO BID 12/09/20 08/16/22 08/12/22 History simvastatin 20 mg tablet 20 mg PO DAILY 12/09/20 08/16/22 08/11/22 History mometasone 0.1 % topical cream 1 applic topical DAILY PRN Rash 01/21/22 08/16/22 Unknown History methocarbamol 750 mg tablet 750 mg PO Q8H #30 tabs 06/19/22 08/16/22 08/12/22 Rx ascorbic acid (vitamin C) 500 mg 500 mg PO DAILY 07/02/22 08/16/22 08/12/22 History capsule,extended release DME: Walker #1 ea 08/02/22 08/16/22 Unknown Rx ergocalciferol (vitamin D2) 1,250 1,250 mcg PO .weekly #12 caps 11/08/16/22 08/11/22 Rx mcg (50,000 unit) capsule ferrous sulfate 325 mg (65 mg 325 mg PO DAILY #90 tabs 08/02/22 08/16/22 08/12/22 Rx iron) tablet ondansetron 4 mg disintegrating 4 mg PO Q8H PRN nausea and 08/10/22 08/16/22 Unknown Rx tablet vomiting #15 tabs oxycodone 5 mg tablet 5 mg PO Q4H PRN pain #20 tabs 08/10/22 08/16/22 08/12/22 Rx multivitamin 1 tab PO DAILY 08/16/22 08/16/22 Unknown History polyethylene glycol 3350 17 12.75 g PO DAILY 08/16/22 08/16/22 Unknown History gram/dose oral powder (Miralax) Allergies Allergy/AdvReac Type Severity Reaction Status Date / Time amoxicillin Allergy Unknown Unknown Verified 08/02/22 16:32 ciprofloxacin Allergy Unknown Unknown Verified 08/02/22 16:32 levofloxacin Allergy Unknown Unknown Verified 08/02/22 16:32 clarithromycin Allergy rash/welps Verified 08/02/22 16:32 lisinopril Allergy unknown Verified 08/02/22 16:32 losartan Allergy rash Verified 08/02/22 16:32 spironolactone Allergy Unknown Verified 08/12/22 11:56 Current Medications Generic Name Dose Route Start Last Admin Trade Name Freq PRN Reason Stop Dose Admin Apixaban 5 mg 08/15/22 18:00 08/15/22 17:32 Apixaban 5 Mg Tablet PO 5 mg BID MAGI Administration Ascorbic Acid 500 mg 08/16/22 09:00 08/18/22 08:28 Ascorbic Acid 500 Mg Tablet PO 500 mg DAILY MAGI Administration Aspirin 81 mg 08/15/22 15:00 08/15/22 16:15 Aspirin 81 Mg Ec Tablet PO 81 mg DAILY MAGI Administration Atorvastatin Calcium 20 mg 08/16/22 09:00 08/18/22 08:28 Atorvastatin 40 Mg Tablet PO 20 mg DAILY MAGI Administration Cyclobenzaprine HCl 5 mg 08/15/22 12:40 08/15/22 22:37 Cyclobenzaprine 10 Mg Tablet PO 5 mg TID PRN Administration MUSCLE SPASMS Ferrous Sulfate 325 mg 08/15/22 15:00 08/18/22 08:28 Ferrous Sulfate Ec 325 Mg Tablet PO 325 mg DAILY MAGI Administration Insulin Glargine 20 unit 08/15/22 21:00 08/18/22 21:21 Insulin Glargine 100 Units/1 Ml SUBCUT 20 unit BEDTIME MAGI Administration Insulin Human Lispro 0 unit 08/15/22 18:00 08/19/22 07:29 Insulin Lispro 100 Unit/1 Ml SUBCUT Not Given WM&BEDTIME MAGI Protocol Lidocaine 1 patch 08/17/22 21:00 08/18/22 21:21 Lidocaine 5% Patch TOPICAL Not Given [id number] MAGI Sodium Chloride 1 gm 08/18/22 18:00 08/18/22 17:09 Sodium Chloride 1 Gm Tablet PO 1 gm BID MAGI Administration PFSH Acute PFSH: Medical History Actinic dermatitis Dermatitis Diabetes mellitus with hyperglycemia Essential (primary) hypertension History of CVA (cerebrovascular accident) Iron deficiency Lesion of bladder removed colo Pacemaker Surgical History History of colonoscopy 2010 History of permanent cardiac pacemaker placement January 13, 2022 at [facility] History of prostate surgery 2008 History of tonsillectomy Family History Brother FH: CVA (cerebrovascular accident) Father FH: CVA (cerebrovascular accident) Social History Smoking and tobacco status: former smoker Second hand smoke exposure: No Smoking risk assessment/counseling performed?: No Alcohol intake: never Desire information about alcohol rehabilitation?: No Counseling given: No Desire information about substance/drug rehabilitation?: No Counseling given: No Adopted: No Caregiver/support person: No Lives independently: Yes Household members: spouse Housing: House Marital status: Current occupational status: retired Current gender identity: Male Vitals/I&O/Wt Last Vital Signs Temp 98.2 F 08/19/22 07:57 Pulse 52 L 08/19/22 07:57 Resp 18 08/19/22 07:57 BP 145/75 08/19/22 07:57 Pulse Ox 98 08/19/22 07:57 O2 Del Method 08/19/22 07:57 08/18/22 08/19/2222 22:59 06:59 14:59 Intake Total 840 / 1320 Output Total 300 / 300 350 / 650 Balance 540 / 1020 -350 / 670 Physical Exam Narrative: Patient's family member at bedside stated that patient has no weakness no numbness tingling just strictly neck and back pain. HENMT: THROAT: uvular edema Data 08/19/22 04:39 08/19/22 04:39 Micro: Microbiology 08/15/22 04:05 Gram Stain - Final Cerebrospinal Fluid CSF Culture - Final A&P Assessment and plan (1) Back pain: Patient with back pain for the past couple weeks. Patient unable to get an MRI due to pacemaker. I would like to give him steroids however with his possible GI bleed or unknown origin of bleeding would likely hold off on giving steroids. At this point I will continue with the heating pads. The family member brought some in the seem to help then when the blood loss is figured out possibly can start giving steroids. Could also get him referral to pain management outpatient basis. Consult Attestations Medical Necessity Statement: Per primary service Coding Level of Care Code Acute Security Attendant for Hattie Shaffer Diagnoses Back pain M54.9
[2022-08-19] MEDS: oxyCODONE 5 mg IR Tab/Cap PO (08:17)
[2022-08-19] MEDS: atorvastatin 40 mg Tablet 20 MG PO (08:17)
[2022-08-19] MEDS: ascorbic acid 500 mg Tablet PO (08:17)
[2022-08-19] MEDS: ferrous sulfate EC 325 mg Tablet PO (08:17)
[2022-08-19] MEDS: acetaminophen 325 mg Tablet 650 MG PO (08:17)
[2022-08-19] MEDS: peg /e-lyte soln 4,000 mL Btl 4000 ML PO (10:43)
[2022-08-19 11:49] LABS: Glucose Point of Care 176 mg/dL (70-110)
[2022-08-19] MEDS: insulin lispro 100 unit/1 mL SUBCUT (12:16)
[2022-08-19 12:41] LABS: CENTROMERE B ANTIBODY <1.0 NEG AI (<1.0 NEG); JO-1 ANTIBODY <1.0 NEG AI (<1.0 NEG); RNP ANTIBODY <1.0 NEG AI (<1.0 NEG); SCL-70 ANTIBODY <1.0 NEG AI (<1.0 NEG); SJOGREN'S ANTIBODY (SS-A) <1.0 NEG AI (<1.0 NEG); SM ANTIBODY <1.0 NEG AI (<1.0 NEG); SS-B <1.0 NEG AI (<1.0 NEG)
[2022-08-19 13:48] LABS: THYROID PEROXIDASE ANTIBODIES 2 IU/mL (<9)
[2022-08-19 16:59] LABS: Glucose Point of Care 146 mg/dL (70-110)
--- NOTE | 2022-08-19 17:45 | P.PN_ITS ---
Subjective Subjective: States that pain is better controlled today. Participating with PT. Had GoLytely after which she had bowel movement. Plan for endoscopy tomorrow. Hemoglobin stable today. Medications: Reviewed: Yes Vitals/I&O/Wt Last Vital Signs Temp 98.1 F 08/19/22 15:07 Pulse 76 08/19/22 15:07 Resp 18 08/19/22 15:07 BP 131/72 08/19/22 15:07 Pulse Ox 97 08/19/22 15:07 O2 Del Method 08/19/22 07:57 08/19/22 08/19/22 08/19/22 06:59 14:59 22:59 Intake Total 1080 / 1080 300 / 1380 Output Total 350 / 650 Balance -350 / 670 1080 / 1080 300 / 1380 Physical Exam Narrative: General: No acute distress, AO x3 HEENT: PERRLA, pupils bilaterally equal and reactive, pallors not present Chest: Normal vesicular breath sounds, no added sounds, equal good air entry bilaterally CVS: S1-S2 regular, no murmurs, no tachycardia, no gallops, no rubs Abdomen: Soft, nontender, no organomegaly, bowel sounds present Neuro: No focal deficits, no facial deformity, AO x3, power 5/5 in all limbs Data 08/19/22 04:39 08/19/22 04:39 Micro: Microbiology 08/15/22 04:05 Gram Stain - Final Cerebrospinal Fluid CSF Culture - Final A&P Assessment and plan (1) Acute hyponatremia: (2) Acute alteration in mental status: (3) Iron deficiency: (4) Vitamin D deficiency: (5) Diabetes mellitus with hyperglycemia: (6) Pacemaker: (7) Essential (primary) hypertension: (8) Fever: Plan Patient admitted to the hospital on August 15, 2022 with chief complaints of pain over his upper back and neck. Per patient and his at bedside, patient has been having these complaints since 2 to 3 days prior to presentation. 2 days ago he went to see an senior receptionist, and his neck needed to be adjusted to be placed in the slit-lamp following which she experienced acute sharp pain that started in the upper part of his back and radiated into bilateral shoulders. Initially his thought that this was related to spasm from positioning and was applying ice and heat packs at home however when there was no significant relief she started massaging his neck. Thereafter she noticed an enlarged lymph node in the back of his neck. He also developed a low-grade fever of about 100 ?F at home which prompted the ER visit eventually. Upon presentation here he underwent evaluation with CT of the chest which was negative for aortic dissection. He also underwent CT of the neck which showed no suspicious neck mass or bulky cervical lymphadenopathy. CT of the cervical and thoracic spine was additionally without any acute abnormalities. His labs were however abnormal, sodium was 126, ESR was 43 and CRP was 179. Patient had a low-grade fever. Due to suspicion for meningitis patient underwent lumbar puncture in the emergency room. CSF was overall unremarkable for infection. Patient had no other signs of meningoencephalitis. He had a fever of 100 Fahrenheit during this admission. Patient was started empirically on ceftriaxone and vancomycin initially. states she has pulled some ticks of the patient in the past month. On asking specifically patient states that his back pain and deconditioning originally started after he underwent AICD placement in March of this year. He started to do cardiac rehab after his AICD placement however was an extremely weak and unable to do so. He went back to his primary silk finisher and he needed to reset his AICD settings following which his exercise capacity improved. He was able to do cardiac rehab, however has had several days in which she has doubled over on the machines due to pain in his back. His has noted an occasional neck lump even in the past. Because of noted anemia he was being planned for EGD and colonoscopy as outpatient but this is yet to happen. Reviewing notes from his PCP patient has complained of increasing generalized weakness since at least July of this year. He has complained of low energy levels, being unsteady on his feet. At a baseline he was able to walk independently but more recently patient has had to sit on a bench to shower, he is only able to ambulate few short steps within the room. Plan: No clear etiology for patient's complaints of back shoulder and upper chest pain. Reports these to be severe spasms not adequately relieved by muscle relaxants at this time. Additionally his CRP is elevated for unclear reasons. He was febrile with a low-grade fever upon presentation the cause of which is additionally unclear. Afberile now Infectious work-up is thus far negative for any pneumonia. LP not suggestive of meningoencephalitis. No clinical signs and symptoms to suggest this either. Respiratory viral panel is negative. Urine analysis not indicative of a UTI. Panel is currently pending d/c vancomycin, status post ceftriaxone 1g iv q24h between August 15 to August 17. Will change to doxycycline 100 mg p.o. twice daily while tick panel is pending. Echocardiogram is negative for any pericardial effusion or pericarditis. Alternate possibilities may be autoimmune processes such as dermatomyositis, however unlikely to present for the first time at age 86. Patient is on statins, will check CK for any evidence of rhabdomyolysis. His pain is slightly better controlled after addition of oxycodone, Toradol and lidocaine patch, however still with significant spasms involving his entire back. Yesterday he started to also complain of lower back pain. CT of the lumbar spine was performed which was negative for any acute abnormalities. He has a maculopapular itchy rash over bilateral inner thigh and along his belt line, however patient and his state that this is not new.. Patient has several contact allergies and often requires topical treatment at home. The rash does not appear unusual to them. No rash noted anywhere else.no herpetic rash. For his hyponatremia, Na is corrected at 138. Reduce NA cl to 1gm TID from 2 g TID Anemia: Chronic, 7.4 on last check, FOBT pending but pt constipated. Hb drifting down, patient c/o generalized weakness, Eliquis is on hold as bleeding has not been excluded. Will discuss with surgery to evaluate for UGIE and colonoscopy current admission Physical therapy assessment appreciated. Significant limitation noted in mobility because of pain. Intolerant of less than 5 degrees of cervical rotation bilaterally. cause of significant limittaion remains unclear, all relevant imaging remains negative. will obtain ortho consult for any further relevant evalaution. Per review of his outpatient notes and history provided by him and his spouse patient appears to have gone severe significant deconditioning since his AICD placement. is unable to care for him at home due to deconditioning and ADL dependence. Will continue to work on appropriate disposition planning Plan for today: Bowel prep, endoscopy tomorrow, evaluated by Dr. Patel this morning, no further investigations for the back pain, cannot get an MRI due to pacemaker, pain is improving today, trial of steroids if endoscopy does not show any obvious gastritis or ulcers. Attestations Medical Necessity Statement*: Plan for endoscopy tomorrow. Coding Level of Care Code Acute Application Support Administrator for Chg Fwd Diagnoses Acute hyponatremia E87.1 Acute alteration in mental status R41.82 Iron deficiency E61.1 Vitamin D deficiency E55.9 Diabetes mellitus with hyperglycemia E11.65 Pacemaker Z95.0 Essential (primary) hypertension I10 Fever R50.9
--- NOTE | 2022-08-19 18:00 | PM.CONSULT ---
Providers/Reason For Consult Consulting Physician/Specialty*: Dr. Keith Dumont, DO/General surgery Reason for Consult*: Anemia Attending Physician: Miguelina Liang MD Primary Care Provider: ELIESER Oglesby History of Present Illness History of Present Illness Misha Covarrubias is a 86 year old male who is known to me from seeing him in my office. He presented to the hospital with weakness. He is anemic but has not had any bloody or dark stools. His last colonoscopy was 5 years ago, reportedly, and a small polyp was removed.? He denies any abdominal pain, nausea, emesis, diarrhea, constipation, hematochezia and/or melena.? He does have a history of bladder cancer which is being treated.? He takes Eliquis for a history of CVA. Review of Systems General: Reports: 10 or more systems reviewed and unremarkable except in HPI and below Medications/Allergies Home Medications Medication Instructions Recorded Confirmed Last Taken Type apixaban 5 mg tablet (Eliquis) 5 mg PO BID 12/09/20 08/16/22 08/12/22 History aspirin 81 mg tablet,delayed 81 mg PO DAILY 12/09/20 08/16/22 08/12/22 History release (Adult Low Dose Aspirin) metformin 500 mg tablet 500 mg PO BID 12/09/20 08/16/22 08/12/22 History simvastatin 20 mg tablet 20 mg PO DAILY 12/09/20 08/16/22 08/11/22 History mometasone 0.1 % topical cream 1 applic topical DAILY PRN Rash 01/21/22 08/16/22 Unknown History methocarbamol 750 mg tablet 750 mg PO Q8H #30 tabs 06/19/22 08/16/22 08/12/22 Rx ascorbic acid (vitamin C) 500 mg 500 mg PO DAILY 07/02/22 08/16/22 08/12/22 History capsule,extended release DME: Walker #1 ea 08/02/22 08/16/22 Unknown Rx ergocalciferol (vitamin D2) 1,250 1,250 mcg PO .weekly #12 caps 08/02/22 08/16/22 08/11/22 Rx mcg (50,000 unit) capsule ferrous sulfate 325 mg (65 mg 325 mg PO DAILY #90 tabs 08/02/22 08/16/22 08/12/22 Rx iron) tablet ondansetron 4 mg disintegrating 4 mg PO Q8H PRN nausea and 08/10/22 08/16/22 Unknown Rx tablet vomiting #15 tabs oxycodone 5 mg tablet 5 mg PO Q4H PRN pain #20 tabs 08/10/22 08/16/22 08/12/22 Rx multivitamin 1 tab PO DAILY 08/16/22 08/16/22 Unknown History polyethylene glycol 3350 17 12.75 g PO DAILY 08/16/22 08/16/22 Unknown History gram/dose oral powder (Miralax) Allergies Allergy/AdvReac Type Severity Reaction Status Date / Time amoxicillin Allergy Unknown Unknown Verified 08/02/22 16:32 ciprofloxacin Allergy Unknown Unknown Verified 08/02/22 16:32 levofloxacin Allergy Unknown Unknown Verified 08/02/22 16:32 clarithromycin Allergy rash/welps Verified 08/02/22 16:32 lisinopril Allergy unknown Verified 08/02/22 16:32 losartan Allergy rash Verified 08/02/22 16:32 spironolactone Allergy Unknown Verified 08/12/22 11:56 Current Medications Generic Name Dose Route Start Last Admin Trade Name Freq PRN Reason Stop Dose Admin Acetaminophen 650 mg 08/15/22 06:16 08/19/22 08:17 Acetaminophen 325 Mg Tablet PO 650 mg Q6H PRN Administration Mild/Mod Pain Or Temp >/= 101 Apixaban 5 mg 08/15/22 18:00 08/15/22 17:32 Apixaban 5 Mg Tablet PO 5 mg BID MAGI Administration Ascorbic Acid 500 mg 08/16/22 09:00 08/19/22 08:17 Ascorbic Acid 500 Mg Tablet PO 500 mg DAILY MAGI Administration Aspirin 81 mg 08/15/22 15:00 08/15/22 16:15 Aspirin 81 Mg Ec Tablet PO 81 mg DAILY MAGI Administration Atorvastatin Calcium 20 mg 08/16/22 09:00 08/19/22 08:17 Atorvastatin 40 Mg Tablet PO 20 mg DAILY MAGI Administration Cyclobenzaprine HCl 5 mg 08/15/22 12:40 08/15/22 22:37 Cyclobenzaprine 10 Mg Tablet PO 5 mg TID PRN Administration MUSCLE SPASMS Ferrous Sulfate 325 mg 08/15/22 15:00 08/19/22 08:17 Ferrous Sulfate Ec 325 Mg Tablet PO 325 mg DAILY MAGI Administration Insulin Glargine 20 unit 08/15/22 21:00 08/18/22 21:21 Insulin Glargine 100 Units/1 Ml SUBCUT 20 unit BEDTIME MAGI Administration Insulin Human Lispro 0 unit 08/15/22 18:00 08/19/22 17:16 Insulin Lispro 100 Unit/1 Ml SUBCUT Not Given WM&BEDTIME MAGI Protocol Lidocaine 1 patch 08/17/22 21:00 08/19/22 08:18 Lidocaine 5% Patch TOPICAL Not Given [id number] MAGI Oxycodone HCl 5 mg 08/17/22 15:42 08/19/22 08:17 Oxycodone 5 Mg Ir Tab/Cap PO 5 mg Q4H PRN Administration MODERATE PAIN Sodium Chloride 1 gm 08/18/22 18:00 08/19/22 17:17 Sodium Chloride 1 Gm Tablet PO 1 gm BID MAGI Administration PFSH Acute PFSH: Medical History Actinic dermatitis Dermatitis Diabetes mellitus with hyperglycemia Essential (primary) hypertension History of CVA (cerebrovascular accident) Iron deficiency Lesion of bladder removed colo Pacemaker Surgical History History of colonoscopy 2010 History of permanent cardiac pacemaker placement January 13, 2022 at [facility] History of prostate surgery 2008 History of tonsillectomy Family History Brother FH: CVA (cerebrovascular accident) Father FH: CVA (cerebrovascular accident) Social History Smoking and tobacco status: former smoker Second hand smoke exposure: No Smoking risk assessment/counseling performed?: No Alcohol intake: never Desire information about alcohol rehabilitation?: No Counseling given: No Desire information about substance/drug rehabilitation?: No Counseling given: No Adopted: No Caregiver/support person: No Lives independently: Yes Household members: spouse Housing: House Marital status: Current occupational status: retired Current gender identity: Male Vitals/I&O/Wt Last Vital Signs Temp 98.1 F 08/19/22 15:07 Pulse 76 08/19/22 15:07 Resp 18 08/19/22 15:07 BP 131/72 08/19/22 15:07 Pulse Ox 97 12/15/22 15:07 O2 Del Method 08/19/22 07:57 08/19/22 08/19/22 08/19/22 06:59 14:59 22:59 Intake Total 1080 / 1080 300 / 1380 Output Total 350 / 650 Balance -350 / 670 1080 / 1080 300 / 1380 Physical Exam Narrative: General : Patient is well developed , no acute distress, oriented x3 Head : Normal cephalic, a-traumatic. Ears : Pinnae and external canal are normal. Hearing is normal. Eyes : PERRLA, Sclera and injection are normal. No conjunctival discharge. Nose : Mucous membranes are without erythema. Throat : buccal mucosa is normal, gums are without significant recession or hypertrophy. Lungs : Equal chest rise bilaterally, no use of accessory muscles, trachea is midline. Cor : Rate and rhythm are normal. Abdomen : Soft, ND, NT, no g/r/m Extremities : No edema, no cyanosis or clubbing, dorsalis pedis pulses are present bilaterally, non-tender to palpation of calves. Upper extremities are normal bilaterally. Back : non-tender to palpation, no CVA tenderness. Neuro : CN II - XII intact, Upper and lower extremities have equal and full strength Data 08/19/22 04:39 08/19/22 04:39 Micro: Microbiology 08/15/22 04:05 Gram Stain - Final Cerebrospinal Fluid CSF Culture - Final A&P Assessment and plan (1) Anemia: Plan EGD Colonoscopy The risks and benefits of the procedure, including bleeding, infection, intestinal perforation requiring surgery, missed lesion were explained to the patient. The patient is understanding of the risks and wishes to proceed. Coding Level of Care Code Acute Toll Repairer Central Office for Chg Fwd Diagnoses Anemia D64.9
--- NOTE | 2022-08-19 18:02 | PC.NURSE ---
Patient OOBTC, having multiple loose stools from the colon prep but is not clear at this time. at bedside, AAOx4, VSS, room clean and clutter free with call light in reach. No needs at this time, no new events.
[2022-08-19 22:00] LABS: Glucose Point of Care 233 mg/dL (70-110)
[2022-08-20] VITALS (15 sets, daily range): BP systolic 112–171; BP diastolic 58–91; PULSE 60–87; RESP 14–20; TEMP 36.1–36.9; O2SAT 93–100
[2022-08-20 06:21] LABS: Glucose Point of Care 121 mg/dL (70-110)
[2022-08-20 10:44] LABS: Glucose Point of Care 182 mg/dL (70-110)
[2022-08-20] MEDS: sodium chloride 0.9% 1,000 ML 30 ML IV (10:55)
--- NOTE | 2022-08-20 11:28 | W.PM.OPSUD ---
Surgery/Procedure H&P Update DATE OF PROCEDURE: August 20, 2022 DATE H&P PERFORMED: 08/19/22 PLANNED PROCEDURE: Operation Date: 08/20/22 11:00 Proposed Procedures p EGD(Not Applicable) - DO dahlia Burks Colonoscopy(Not Applicable) - Keith Dumont DO
[2022-08-20 11:48] LABS: COMPLEMENT COMPONENT C3C 166 mg/dL; COMPLEMENT COMPONENT C4C 20 mg/dL
--- NOTE | 2022-08-20 11:53 | P.ANESASSM_ITS ---
Pre-Anesthetic Assessment Height/Weight: Height 1.8 m Weight 77.564 kg Temp Pulse Resp BP Pulse Ox O2 Del Method 97.4 F L 84 18 171/91 98 08/20/22 10:46 08/20/22 10:46 08/20/22 10:46 08/20/22 10:46 08/20/22 10:46 08/20/22 10:46 Preop Diagnosis: Blood in stools Operation Date: 08/20/22 11:00 Proposed Procedures p EGD(Not Applicable) - Keith Dumont DO s Colonoscopy(Not Applicable) - Keith Dumont DO Was Beta Kiran taken within 24 hours: N/A Was Clonidine taken within 24 hours: N/A Last intake: Intake Last Liquid Date 08/19/22 Last Liquid Time 22:00 Last Solid Date 08/18/22 Last Solid Time 18:00 Social No alcohol and No tobacco Exam alert, oriented x 3, clear to auscultation bilaterally and regular rate & rhythm Airway Submandibular: within normal limits Cervical ROM: within normal limits Mallampati: Class II Dentition: full History/ROS No significant complaints Pulmonary None reported CV/HEM Anemia, Coronary Artery Disease and Myocardial Infarction None reported Hepatic None reported GI Gastroesophageal Reflux Disease Metabolic Diabetes Mellitus Musc/skel Lower Back Pain and Osteoarthritis/DJD Neuropsych Cerebrovascular Accident Anesthetic Plan ASA status: 3 Anesthesia: Anesthesia Evaluation and MAC Risk of > 500 ml blood loss (7ml/kg in children): No Medications/Allergies Home Medications Medication Instructions Recorded Confirmed Last Taken Type apixaban 5 mg tablet (Eliquis) 5 mg PO BID 12/09/20 08/16/22 08/12/22 History aspirin 81 mg tablet,delayed 81 mg PO DAILY 12/09/20 08/16/22 08/12/22 History release (Adult Low Dose Aspirin) metformin 500 mg tablet 500 mg PO BID 12/09/20 08/16/22 08/12/22 History simvastatin 20 mg tablet 20 mg PO DAILY 12/09/20 08/16/22 08/11/22 History mometasone 0.1 % topical cream 1 applic topical DAILY PRN Rash 01/21/22 08/16/22 Unknown History methocarbamol 750 mg tablet 750 mg PO Q8H #30 tabs 06/19/22 08/16/22 08/12/22 Rx ascorbic acid (vitamin C) 500 mg 500 mg PO DAILY 10/28/22 12/12/22 12/08/22 History capsule,extended release DME: Walker #1 ea 08/02/22 08/16/22 Unknown Rx ergocalciferol (vitamin D2) 1,250 1,250 mcg PO .weekly #12 caps 08/02/22 08/16/22 08/11/22 Rx mcg (50,000 unit) capsule ferrous sulfate 325 mg (65 mg 325 mg PO DAILY #90 tabs 08/02/22 08/16/22 08/12/22 Rx iron) tablet ondansetron 4 mg disintegrating 4 mg PO Q8H PRN nausea and 08/10/22 08/16/22 Unknown Rx tablet vomiting #15 tabs oxycodone 5 mg tablet 5 mg PO Q4H PRN pain #20 tabs 08/10/22 08/16/22 08/12/22 Rx multivitamin 1 tab PO DAILY 08/16/22 08/16/22 Unknown History polyethylene glycol 3350 17 12.75 g PO DAILY 08/16/22 08/16/22 Unknown History gram/dose oral powder (Miralax) Allergies Allergy/AdvReac Type Severity Reaction Status Date / Time amoxicillin Allergy Unknown Unknown Verified 08/02/22 16:32 ciprofloxacin Allergy Unknown Unknown Verified 08/02/22 16:32 levofloxacin Allergy Unknown Unknown Verified 08/02/22 16:32 clarithromycin Allergy rash/welps Verified 08/02/22 16:32 lisinopril Allergy unknown Verified 08/02/22 16:32 losartan Allergy rash Verified 08/02/22 16:32 spironolactone Allergy Unknown Verified 08/12/22 11:56 Current Medications Generic Name Dose Route Start Last Admin Trade Name Freq PRN Reason Stop Dose Admin Acetaminophen 650 mg 08/15/22 06:16 08/19/22 08:17 Acetaminophen 325 Mg Tablet PO 650 mg Q6H PRN Administration Mild/Mod Pain Or Temp >/= 101 Apixaban 5 mg 08/15/22 18:00 08/15/22 17:32 Apixaban 5 Mg Tablet PO 5 mg BID MAGI Administration Ascorbic Acid 500 mg 08/16/22 09:00 08/19/22 08:17 Ascorbic Acid 500 Mg Tablet PO 500 mg DAILY MAGI Administration Aspirin 81 mg 08/15/22 15:00 08/15/22 16:15 Aspirin 81 Mg Ec Tablet PO 81 mg DAILY MAGI Administration Atorvastatin Calcium 20 mg 08/16/22 09:00 08/19/22 08:17 Atorvastatin 40 Mg Tablet PO 20 mg DAILY MAGI Administration Cyclobenzaprine HCl 5 mg 08/15/22 12:40 08/15/22 22:37 Cyclobenzaprine 10 Mg Tablet PO 5 mg TID PRN Administration MUSCLE SPASMS Ferrous Sulfate 325 mg 08/15/22 15:00 08/19/22 08:17 Ferrous Sulfate Ec 325 Mg Tablet PO 325 mg DAILY MAGI Administration Sodium Chloride 1,000 mls @ 30 mls/hr 08/20/22 10:45 08/20/22 10:55 Sodium Chloride 0.9% IV 08/21/22 10:44 30 mls/hr .Q24H MAGI Administration Insulin Glargine 20 unit 08/15/22 21:00 08/19/22 22:19 Insulin Glargine 100 Units/1 Ml SUBCUT Not Given BEDTIME [facility] Insulin Human Lispro 0 unit 08/15/22 18:00 08/20/22 08:16 Insulin Lispro 100 Unit/1 Ml SUBCUT Not Given WM&BEDTIME [facility] Protocol Lidocaine 1 patch 08/17/22 21:00 08/19/22 23:22 Lidocaine 5% Patch TOPICAL Not Given [id number] [facility] Oxycodone HCl 5 mg 08/17/22 15:42 08/19/22 08:17 Oxycodone 5 Mg Ir Tab/Cap PO 5 mg Q4H PRN Administration MODERATE PAIN Sodium Chloride 1 gm 08/18/22 18:00 08/19/22 17:17 Sodium Chloride 1 Gm Tablet PO 1 gm BID MAGI Administration PFSH Anesthesia Medical History Actinic dermatitis Dermatitis Diabetes mellitus with hyperglycemia Essential (primary) hypertension History of CVA (cerebrovascular accident) Iron deficiency Lesion of bladder removed colo Pacemaker Surgical History History of colonoscopy 2010 History of permanent cardiac pacemaker placement January 13, 2022 at [facility] History of prostate surgery 2008 History of tonsillectomy Family History Brother FH: CVA (cerebrovascular accident) Father FH: CVA (cerebrovascular accident) Social History Smoking and tobacco status: former smoker Second hand smoke exposure: No Smoking risk assessment/counseling performed?: No Alcohol intake: never Desire information about alcohol rehabilitation?: No Counseling given: No Desire information about substance/drug rehabilitation?: No Counseling given: No Adopted: No Caregiver/support person: No Lives independently: Yes Household members: spouse Housing: House Marital status: Current occupational status: retired Current gender identity: Male Data Anesthesia 08/19/22 04:39 08/19/22 04:39 Short CBC 08/19/22 Range/Units 04:39 WBC 6.5 (4.0-10.0) 10^3/uL Hgb 7.4 L (11.7-16.6) g/dL Hct 26.2 L (42.0-52.0) % MCV 70.8 L (80-94) fl Plt Count 423 H (130-400) 10^3/cmm Neut % (Auto) 70.5 % Neut # (Auto) 4.60 (1.8-7.7) 10^3/uL BMP 08/19/22 04:39 Sodium 139 Potassium 3.5 Chloride 106 Carbon Dioxide 23 BUN 16 Creatinine 0.8 Glucose 106 Calcium 8.9 Cardiac Enzymes 08/18/22 Range/Units 03:18 Creatine Kinase 23 L (39-308) U/L Liver Function 08/19/22 Range/Units 04:39 Total Bilirubin 0.2 (0.15-1.2) mg/dL AST 13 (0-40) U/L ALT 12 (0-41) U/L Alkaline Phosphatase 77 (40-130) U/L Albumin 3.2 L (3.5-5.2) g/dL Microbiology 08/15/22 06:44 Blood Culture - Final Blood NO GROWTH AFTER 5 DAYS 08/15/22 06:48 Blood Culture - Final Blood NO GROWTH AFTER 5 DAYS Cardiac Studies: Echocardiogram 08/17/22
[2022-08-20 12:18] LABS: ANA PATTERN Nuclear, Speckled; ANA SCREEN, IFA POSITIVE (NEGATIVE); ANA TITER 1:40 titer
[2022-08-20] MEDS: EPINEPHrine 1 mg/mL INJ XX (12:50)
[2022-08-20 13:45] LABS: COMPLEMENT, TOTAL (CH50) >60 U/mL (31-60)
[2022-08-20] MEDS: atorvastatin 40 mg Tablet 20 MG PO (14:14)
[2022-08-20] MEDS: ascorbic acid 500 mg Tablet PO (14:14)
[2022-08-20] MEDS: oxyCODONE 5 mg IR Tab/Cap PO (14:15)
[2022-08-20] MEDS: ferrous sulfate EC 325 mg Tablet PO (14:15)
[2022-08-20] MEDS: sodium chloride 1 gm Tablet PO ×2 (14:16→18:16)
--- NOTE | 2022-08-20 14:37 | ANE.PACU2 ---
Inpatient post-anesthesia follow up: Airway intact: Yes Vital signs: Temperature 97 F Pulse Rate 66 Respiratory Rate 18 Blood Pressure 160/74 Pulse Oximetry 100 Oxygen Delivery Me thod Nasal Cannula Oxygen Flow Rate 2 Fraction of Inspir ed Oxygen Hydration adequate: Yes Nausea and vomiting: No Pain level: 1 Mental status: Baseline
--- NOTE | 2022-08-20 16:28 | PC.NURSE ---
Dr. Liang requested an appointment be made with [facility]. Managed Care Liaison called and was told they are only doing call backs. [place] gave information and was told they would contact [facility] with the appointment information. Pt spouse said she is going to call [facility] and see if she can get an appointment with them since pt is an established pt with [facility] already.
--- NOTE | 2022-08-20 16:50 | P.PN_ITS ---
Subjective Subjective: Patient's pain is better controlled today. He was able to ambulate out of bed. Hemoglobin last checked 7.4. Underwent EGD and colonoscopy today. 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 Bleeding was controlled. Colonoscopy showed a fungating mass in the distal ascending colon which was not bleeding. Biopsy was taken which is currently pending. Internal hemorrhoids were also seen in the rectum which were not bleeding. Medications: Reviewed: Yes Vitals/I&O/Wt Last Vital Signs Temp 97.9 F 08/20/22 16:00 Pulse 87 08/20/22 16:00 Resp 17 08/20/22 16:00 BP 142/67 08/20/22 16:00 Pulse Ox 98 08/20/22 16:00 O2 Del Method 08/20/22 15:37 O2 Flow Rate 2 08/20/22 13:15 08/20/22 08/20/22 08/20/22 06:59 14:59 22:59 Intake Total 0 / 1380 700 / 700 Balance 0 / 1230 700 / 700 Physical Exam Narrative: General: No acute distress, AO x3 HEENT: PERRLA, pupils bilaterally equal and reactive, pallors + Chest: Normal vesicular breath sounds, no added sounds, equal good air entry bilaterally CVS: S1-S2 regular, no murmurs, no tachycardia, no gallops, no rubs Abdomen: Soft, nontender, no organomegaly, bowel sounds present Neuro: No focal deficits, no facial deformity, AO x3, power 5/5 in all limbs Data 08/19/22 04:39 08/19/22 04:39 Micro: Microbiology 08/15/22 06:44 Blood Culture - Final Blood NO GROWTH AFTER 5 DAYS 08/15/22 06:48 Blood Culture - Final Blood NO GROWTH AFTER 5 DAYS A&P Assessment and plan (1) Acute hyponatremia: (2) Acute alteration in mental status: (3) Iron deficiency: (4) Vitamin D deficiency: (5) Diabetes mellitus with hyperglycemia: (6) Pacemaker: (7) Essential (primary) hypertension: (8) Fever: Plan Patient admitted to the hospital on August 15, 2022 with chief complaints of intractable pain over his upper back and neck. CT of the neck, cervical and thoracic, lumbar spine was without any acute abnormalities. Evlauated by orthopedics- no other obvious cause apparent, likely muscle spasms Pain is now optimized with opiates, toradol and lidocaine patch and moist heat. Echocardiogram is negative for any pericardial effusion or pericarditis. no evidence of rhabdomyolysis Back pain is now much improved. LARY returned positive today 1:80, will provide outpatient referral to rheumatology. Had several sodium was 126, ESR was 43 and CRP was 179. Patient had a low- grade fever on arrival. Due to suspicion for meningitis patient underwent lumbar puncture in the emergency room. CSF was overall unremarkable for infection. Patient had no other signs of meningoencephalitis. He had a fever of 100 Fahrenheit during this admission. Patient was started e mpirically on ceftriaxone and vancomycin initially. states she has pulled some ticks of the patient in the past month. HE was treated with an empiric course of CTX/VANC----> po doxycycline. Tick panel negative for lyme. D/c doxycycline after completing presumptive 7 days on 08/21. Na is corrected at 138. NA cl currently at 1gm TID from 2 g TID . Recheck with am labs. Anemia: Chronic, 7.4 on last check,but symptomatic now. s/p EGD and colonoscopy. 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 biopsies taken. Referred to [facility] in [place] as outpatient. Eliquis will need to be discontinued going further. (indication is A fib). Discussed that risk of bleeding higher than risk of stroke at this time. Physical therapy assessment appreciated. Significant limitation noted in mobility because of pain. Slowly getting better, ambulating better. Plan to discharge home with Attestations Medical Necessity Statement*: s/p endoscopy today with bleeding ectasia, will monitor Hb over next 24 hrs,. then plan to d/c home Coding Level of Care Code Acute Set And Exhibit Designer for g Fwd Diagnoses Acute hyponatremia E87.1 Acute alteration in mental status R41.82 Iron deficiency E61.1 Vitamin D deficiency E55.9 Diabetes mellitus with hyperglycemia E11.65 Pacemaker Z95.0 Essential (primary) hypertension I10 Fever R50.9
[2022-08-20 18:01] LABS: Glucose Point of Care 232 mg/dL (70-110)
[2022-08-20] MEDS: insulin lispro 100 unit/1 mL SUBCUT ×2 (18:16→22:16)
[2022-08-20 19:50] LABS: Glucose Point of Care 232 mg/dL (70-110)
[2022-08-20] MEDS: insulin glargine 100 units/1 mL 20 UNIT SUBCUT (22:14)
[2022-08-20 22:15] LABS: Urine Random Sodium 112 mmol/L
[2022-08-21] VITALS (13 sets, daily range): BP systolic 115–163; BP diastolic 62–77; PULSE 63–75; RESP 14–18; TEMP 36.3–36.9; O2SAT 95–100
[2022-08-21 04:29] LABS: Basophils % 0.1 %; Eosinophils # 0.1 10^3/uL (0.0-0.8); Eosinophils % 0.8 %; Hematocrit 24.4 % (42.0-52.0); Hemoglobin 6.8 g/dL (11.7-16.6); Lymphocytes % 12.1 %; Mean Corpuscular HGB Conc 27.9 g/dL (30.0-36.0); Mean Corpuscular Hemoglobin 19.7 pg (28.0-34.0); Mean Corpuscular Volume 70.5 fl (80-94); Mean Platelet Volume 9.8 fL (7.4-10.4); Monocytes # 0.6 10^3/uL (0.2-0.9); Monocytes % 6.4 %; Neutrophils # 6.86 10^3/uL (1.8-7.7); Neutrophils % 80.2 %; Nucleated Red Blood Cells % 0 %; Platelet Count 384 10^3/cmm (130-400); Red Blood Count 3.46 10^6/uL (4.1-5.3); Red Cell Distribution Width 19.4 % (12.1-15.1); White Blood Count 8.6 10^3/uL (4.0-10.0)
[2022-08-21 05:11] LABS: Aspartate Amino Transferase 12 U/L (0-40); Potassium 3.5 mmol/L (3.5-5.1)
[2022-08-21 05:40] LABS: Albumin Level 3.2 g/dL (3.5-5.2); Anion Gap 13.5 (5-19); Blood Urea Nitrogen 12 mg/dL (8-23); Calcium 8.7 mg/dL (8.5-10.5); Carbon Dioxide 24 mmol/L (22-29); Osmolality Calculated 285 mOsm/kg (285-295); Total Bilirubin 0.3 mg/dL (0.15-1.2); Total Protein 5.8 g/dL (6.6-8.7)
[2022-08-21 05:43] LABS: Alanine Aminotransferase 10 U/L (0-41); Alkaline Phosphatase 77 U/L (40-130); Chloride 104 mmol/L (98-107); Globulin 2.6 g/dL (1.3-4.6); Glucose 93 mg/dL (65-115); Sodium 138 mmol/L (136-145)
[2022-08-21 06:21] LABS: Glucose Point of Care 94 mg/dL (70-110)
[2022-08-21 07:57] LABS: Glucose Point of Care 132 mg/dL (70-110)
--- NOTE | 2022-08-21 07:59 | P.PN_ITS ---
Subjective Subjective: seen this am at bedside neck/upper back pain a lot better egd results reviewed. hb 6.8 this am 1 unit ordered and pending to be given. pt denies chest pain, sob, n/v/d/blood in vomitus or stool Vitals/I&O/Wt Last Vital Signs Temp 98.5 F 08/21/22 04:00 Pulse 72 08/21/22 06:00 Resp 18 08/21/22 04:00 BP 121/65 08/21/22 04:00 Pulse Ox 97 08/21/22 04:00 O2 Del Method 08/20/22 15:37 O2 Flow Rate 2 08/20/22 13:15 08/20/22 08/21/22 08/21/22 22:59 06:59 14:59 Intake Total 120 / 820 480 / 1300 Output Total 100 / 100 200 / 300 Balance 20 / 720 280 / 1000 Physical Exam Narrative: General: Alert oriented x3, patient seen laying in bed appearing comfortable at this time, present at bedside. HEENT: Normocephalic, atraumatic, EOMI, breathing normally no acute respiratory distress. Cardio: Regular rate rhythm, normal S1-S2, Respiratory: Good bilateral air entry, no wheezes no rhonchi appreciated GI: Abdomen soft, nontender, nondistended, bowel sounds + Behavior: Appropriate and cooperative Extremities: No lower extremity edema present. Data 08/21/22 03:39 08/21/22 03:39 Micro: Microbiology 08/15/22 06:44 Blood Culture - Final Blood NO GROWTH AFTER 5 DAYS 08/15/22 06:48 Blood Culture - Final Blood NO GROWTH AFTER 5 DAYS A&P Assessment and plan (1) Acute hyponatremia: (2) Acute alteration in mental status: (3) Iron deficiency: (4) Vitamin D deficiency: (5) Diabetes mellitus with hyperglycemia: (6) Pacemaker: (7) Essential (primary) hypertension: (8) Fever: Plan Patient admitted to the hospital on August 15, 2022 with chief complaints of intractable pain over his upper back and neck. CT of the neck, cervical and thoracic, lumbar spine was without any acute abnormalities. Evlauated by orthopedics- no other obvious cause apparent, likely muscle spasms Pain is now optimized with opiates, toradol and lidocaine patch and moist heat. Echocardiogram is negative for any pericardial effusion or pericarditis. no evidence of rhabdomyolysis Back pain is now much improved. LARY returned positive today 1:80, will provide outpatient referral to rheumat ology. Had several sodium was 126, ESR was 43 and CRP was 179. Patient had a low- grade fever on arrival. Due to suspicion for meningitis patient underwent lumbar puncture in the emergency room. CSF was overall unremarkable for infection. Patient had no other signs of meningoencephalitis. He had a fever of 100 Fahrenheit during this admission. Patient was started empirically on ceftriaxone and vancomycin initially. states she has pulled some ticks of the patient in the past month. HE was treated with an empiric course of CTX/VANC----> po doxycycline. Tick panel negative for lyme. D/c doxycycline after completing presumptive 7 days on 08/21. Na is corrected at 138. NA cl currently at 1gm TID from 2 g TID . Recheck with am labs. Anemia: Chronic, 7.4 on last check,but symptomatic now. s/p EGD and colonoscopy. 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 biopsies taken. Referred to [facility] in [place] as outpatient. Eliquis will need to be discontinued going further. (indication is A fib). Discussed that risk of bleeding higher than risk of stroke at this time. Today's Plan 08/21 Hb 6.8 today. Ordered 1 unit of blood. Discussed with gen surgery, they are recommending transfer to higher level of care where gasteroenterology services would be available due to drop in hemoglobin. Patient's is requesting [facility] in [facility] however after calling there we were told the hospital is on divert and no bed is available at this time. I have personally contacted [facility], [facility] and [facility], [facility] as well with no bed availability. Have reached out to [facility] and waiting to hear back Patient at this time is hemodynamically stable. Will recheck Hb 2 hour post transfusion. RBC ordered this am, will now be administered as they have been type and crossed. Will continue to monitor patient closely. Check HnH q8 hours. Continue to find bed for inpatient transfer. Physical therapy assessment appreciated. Significant limitation noted in mobility because of pain. Slowly getting better, ambulating better. Plan to discharge home with Attestations Medical Necessity Statement*: COntinue to manage in hospital for acute on chronic anemia. Patient will need higher level of care. Continue to find hospital for transfer. Coding Level of Care Code Acute Automatic Glove Former for Chg Fwd Diagnoses Acute hyponatremia E87.1 Acute alteration in mental status R41.82 Iron deficiency E61.1 Vitamin D deficiency E55.9 Diabetes mellitus with hyperglycemia E11.65 Pacemaker Z95.0 Essential (primary) hypertension I10 Fever R50.9
[2022-08-21] MEDS: ferrous sulfate EC 325 mg Tablet PO (08:15)
[2022-08-21] MEDS: sodium chloride 1 gm Tablet PO ×2 (08:15→18:17)
[2022-08-21] MEDS: lidocaine 5% Patch 1 PATCH TOPICAL (08:15)
[2022-08-21] MEDS: aspirin 81 mg EC Tablet PO (08:16)
[2022-08-21] MEDS: ascorbic acid 500 mg Tablet PO (08:16)
[2022-08-21] MEDS: atorvastatin 40 mg Tablet 20 MG PO (08:16)
[2022-08-21 11:19] LABS: Glucose Point of Care 170 mg/dL (70-110)
[2022-08-21] MEDS: insulin lispro 100 unit/1 mL SUBCUT ×3 (14:21→20:43)
[2022-08-21] MEDS: sodium chloride 0.9% (100 ml) 100 ML 75 ML (14:21)
--- NOTE | 2022-08-21 14:36 | PM.PN ---
Subjective Subjective: Patient seen and examined. Denies any abdominal pain. He has not had a bowel movement since the procedure. 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 Ultimately he needs follow-up of the pathology results on the biopsies of the ascending colon mass. He also needs argon beam therapy versus laser therapy of his ectasia along with treatment of his hemorrhoids. Family is requesting transfer. We are working on this. If he stabilizes he may be just charged to go up with [facility] as an outpatient. 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
[2022-08-21 16:39] LABS: RMSF IGG NOT DETECTED
--- NOTE | 2022-08-21 16:54 | P.TS_ITS ---
Transfer Summary Providers Date of Admission: 08/15/22 04:14 Date of Discharge/Transfer: 08/21/22 Attending Provider at Admission: Tahmina Jennings MD Attending Provider at Transfer: Tahmina Jennings MD Primary Care Provider: ELIESER Oglesby Transfer Plans: Anticipated date of transfer: 08/21/22 . Receiving Facility: [facility] . 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 He had a temp of 101 at home as well.? In the ER he has been febrile as well or 100.1.? He was recently here in the ER for similar pain 5 days ago and was discharged home.? CT chest was negative for aortic dissection at the time.? Patient is on Eliquis at home.? Troponins were negative at previous admission.? Patient has little lump at posterior neck close to her shoulder area.? Patient is a former smoker.? Patient is accompanied by his .? Neck CT done in the ER showed no suspicious neck mass or bulky cervical lymphadenopathy identified on CT.? Recommend to follow-up with ENT if neck mass persistent.? Ultrasound of that mass was also done today which showed that it was a lymph node.? Labs are significant for sodium 126.? ESR 43, CRP 179.? Patient also had a fever temp 100.? He was slightly confused upon presentation to ER.? Lumbar puncture was done by ER physician and CSF was completely crystal-clear.? Results of LP are pending however.? Patient was given some IV fluids and mental status improved.? Mental status is back to baseline at this point.? ER physician suspicion of meningitis is low at this point.? He does not have any neck stiffness.? WBC 11.3.? Patient states he has had decreased oral intake recently.? Patient's states that patient had pneumonia several times in the past.? He also has a history of bladder cancer.? 5 tumors were removed from bladder.? Patient did not receive any chemotherapy.? Now she states there is an area in the bladder that is of concern.? Patient is being followed up at the [facility] and his next evaluation is the end of this month. Patient's main concern is fever generalized weakness and swollen lymph out of the back of his neck.? Denies shortness of breath, chest pain, abdominal pain, nausea, vomiting, diarrhea, urinary complaints. Hospital Course Hospital Course Patient admitted to the hospital on August 15, 2022 with chief complaints of intractable pain over his upper back and neck.? CT of the neck, cervical and thoracic, lumbar spine was without any acute abnormalities. Evlauated by orthopedics- no other obvious cause apparent, likely muscle spasms Pain is now optimized with opiates, toradol and lidocaine patch and moist heat. Echocardiogram is negative for any pericardial effusion or pericarditis. no evidence of rhabdomyolysis Back pain is now much improved. LARY returned positive today 1:80, will provide outpatient referral to rheumatology. Had several? sodium was 126, ESR was 43 and CRP was 179.? Patient had a low- grade fever on arrival.? Due to suspicion for meningitis patient underwent lumbar puncture in the emergency room.? CSF was overall unremarkable for infection.? Patient had no other signs of meningoencephalitis. He had a fever of 100 Fahrenheit during this admission.? Patient was started empirically on ceftriaxone and vancomycin initially. states she has pulled some ticks of the patient in the past month. HE was treated with an empiric course of CTX/VANC----> po doxycycline. Tick panel negative for lyme. D/c doxycycline after completing presumptive 7 days on 08/21. ?Na is corrected at 138. NA cl? currently at? 1gm TID from 2 g TID .Continue to monitor AM labs Anemia: Chronic, 7.4 on last check,but symptomatic now.? s/p EGD and colonoscopy. 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 biopsies taken. Referred to [facility] in [place] as outpatient. Eliquis will need to be discontinued going further. (indication is A fib). Discussed that risk of bleeding higher than risk of stroke at this time. Today's Plan 08/21 Hb 6.8 today. Ordered 1 unit of blood. Discussed with gen surgery, they are recommending transfer to higher level of care where gasteroenterology services would be available due to drop in hemoglobin. Patient's is requesting transfer to [facility] however after calling there we were told the hospital is on divert and no bed is available at this time. Pt's states they would like a second opinion from gasteroenterology and since we dont have that specialty available here they are requesting to transfer to a hospital that does. Patient at this time is hemodynamically stable. Will recheck Hb 2 hour post transfusion. RBC ordered this am, will now be administered as they have been type and crossed. Will continue to monitor patient closely. Check HnH q8 hours. Continue to find bed for inpatient transfer. Physical therapy assessment appreciated.? Significant limitation noted in mobility because of pain.? Slowly getting better, ambulating better. Plan to discharge home with HH Case was discussed with hospitalist at the [facility] who requested to view EGD and colonscopy reports. They were faxed to them. Pt has been accepted at [facility]. Physical Exam Narrative: General: Alert oriented x3, patient seen laying in bed appearing comfortable at this time, present at bedside. HEENT: Normocephalic, atraumatic, EOMI, breathing normally no acute respiratory distress. Cardio: Regular rate rhythm, normal S1-S2, Respiratory: Good bilateral air entry, no wheezes no rhonchi appreciated GI: Abdomen soft, nontender, nondistended, bowel sounds + Behavior: Appropriate and cooperative Extremities: No lower extremity edema present. TS Data Studies Completed and Pending Pending at discharge Category Date Time Status LARY Profile Rheumatology AM LABS Lab 08/18/22 03:18 Results Fecal Occult Blood [Immunochemical Fecal OCB] Routine Lab 08/15/22 18:49 Uncollected Sputum Culture and Gram Stain Stat Lab 08/15/22 06:17 Uncollected Tick Panel Routine Lab 08/17/22 11:24 Results Pathology: Surgical [PTH] Routine Pth 08/20/22 13:00 Received Labs from last 24 hours 08/21/22 08/21/22 08/21/22 10:56 09:58 07:52 WBC RBC Hgb Hct MCV MCH MCHC RDW Plt Count MPV Neut % (Auto) Lymph % (Auto) [place] % (Auto) Eos % (Auto) Baso % (Auto) Neut # (Auto) Lymph # (Auto) [place] # (Auto) Eos # (Auto) Baso # (Auto) Nucleated RBC % (auto) Nucleated RBCs # Sodium Potassium Chloride Carbon Dioxide Anion Gap BUN Creatinine GFR Calculation Glucose POC Glucose 170 H 132 H Calculated Osmolality Calcium Total Bilirubin AST ALT Alkaline Phosphatase Total Protein Albumin Globulin Ur Random Sodium Rickettsia IgG Ab Rickettsia IgM Ab Blood Type A Negative Rho(D) Type Negative Antibody Screen Negative Crossmatch See Detail 08/21/22 08/21/22 08/21/22 06:13 03:39 03:39 WBC 8.6 RBC 3.46 L Hgb 6.8 L Hct 24.4 L MCV 70.5 L MCH 19.7 L MCHC 27.9 L RDW 19.4 H Plt Count 384 MPV 9.8 Neut % (Auto) 80.2 Lymph % (Auto) 12.1 [place] % (Auto) 6.4 Eos % (Auto) 0.8 Baso % (Auto) 0.1 Neut # (Auto) 6.86 Lymph # (Auto) 1.0 [place] # (Auto) 0.6 Eos # (Auto) 0.1 Baso # (Auto) 0.0 Nucleated RBC % (auto) 0 Nucleated RBCs # 0.0 Sodium 138 Potassium 3.5 Chloride 104 Carbon Dioxide 24 Anion Gap 13.5 BUN 12 Creatinine 0.8 GFR Calculation Not Reportable Glucose 93 POC Glucose 94 Calculated Osmolality 285 Calcium 8.7 Total Bilirubin 0.3 AST 12 ALT 10 Alkaline Phosphatase 77 Total Protein 5.8 L Albumin 3.2 L Globulin 2.6 Ur Random Sodium Rickettsia IgG Ab Rickettsia IgM Ab Blood Type Rho(D) Type Antibody Screen Crossmatch 08/20/22 08/20/22 08/20/22 21:52 19:48 17:59 WBC RBC Hgb Hct MCV MCH MCHC RDW Plt Count MPV Neut % (Auto) Lymph % (Auto) [place] % (Auto) Eos % (Auto) Baso % (Auto) Neut # (Auto) Lymph # (Auto) [place] # (Auto) Eos # (Auto) Baso # (Auto) Nucleated RBC % (auto) Nucleated RBCs # Sodium Potassium Chloride Carbon Dioxide Anion Gap BUN Creatinine GFR Calculation Glucose POC Glucose 232 H 232 H Calculated Osmolality Calcium Total Bilirubin AST ALT Alkaline Phosphatase Total Protein Albumin Globulin Ur Random Sodium 112 Rickettsia IgG Ab Rickettsia IgM Ab Blood Type Rho(D) Type Antibody Screen Crossmatch 08/17/22 11:24 WBC RBC Hgb Hct MCV MCH MCHC RDW Plt Count MPV Neut % (Auto) Lymph % (Auto) [place] % (Auto) Eos % (Auto) Baso % (Auto) Neut # (Auto) Lymph # (Auto) [place] # (Auto) Eos # (Auto) Baso # (Auto) Nucleated RBC % (auto) Nucleated RBCs # Sodium Potassium Chloride Carbon Dioxide Anion Gap BUN Creatinine GFR Calculation Glucose POC Glucose Calculated Osmolality Calcium Total Bilirubin AST ALT Alkaline Phosphatase Total Protein Albumin Globulin Ur Random Sodium Rickettsia IgG Ab Not detected Rickettsia IgM Ab Not detected Blood Type Rho(D) Type Antibody Screen Crossmatch Completed Studies During Hospitalization Category Date Time Status CT head wo con* [id number] Stat Cat Scan 08/15/22 02:[address] lumbar spine wo con* [id number] Routine Cat Scan 08/17/22 17:[address] neck w con* [id number] Stat Cat Scan 08/15/22 00:41 Completed XR chest 1V portable [id number] Stat Exams 08/15/22 00:41 Completed CV. echo complete* [id number] Routine Ultrasound 08/17/22 08:46 Completed US soft tissue head neck [id number] Stat Ultrasound 08/15/22 02:18 Completed Laboratory Last Values WBC 8.6 10^3/uL (4.0-10.0) 08/21/22 03:39 RBC 3.46 10^6/uL (4.1-5.3) L 08/21/22 03:39 Hgb 6.8 g/dL (11.7-16.6) L 08/21/22 03:39 Hct 24.4 % (42.0-52.0) L 08/21/22 03:39 MCV 70.5 fl (80-94) L 08/21/22 03:39 MCH 19.7 pg (28.0-34.0) L 08/21/22 03:39 MCHC 27.9 g/dL (30.0-36.0) L 08/21/22 03:39 RDW 19.4 % (12.1-15.1) H 08/21/22 03:39 Plt Count 384 10^3/cmm (130-400) 08/21/22 03:39 MPV 9.8 fL (7.4-10.4) 08/21/22 03:39 Neut % (Auto) 80.2 % 08/21/22 03:39 Lymph % (Auto) 12.1 % 08/21/22 03:39 [place] % (Auto) 6.4 % 08/21/22 03:39 Eos % (Auto) 0.8 % 08/21/22 03:39 Baso % (Auto) 0.1 % 08/21/22 03:39 Neut # (Auto) 6.86 10^3/uL (1.8-7.7) 08/21/22 03:39 Lymph # (Auto) 1.0 10^3/uL (0.8-4.8) 08/21/22 03:39 [place] # (Auto) 0.6 10^3/uL (0.2-0.9) 08/21/22 03:39 Eos # (Auto) 0.1 10^3/uL (0.0-0.8) 08/21/22 03:39 Baso # (Auto) 0.0 10^3/uL (0.0-0.1) 08/21/22 03:39 Nucleated RBC % (auto) 0 % 08/21/22 03:39 Nucleated RBCs # 0.0 /100WBC 08/21/22 03:39 ESR 43 mm/hr (0-10) H 08/15/22 00:10 PT 17.00 SECONDS (12.1-14.9) H 08/15/22 00:10 INR 1.35 (0.8-1.2) H 08/15/22 00:10 APTT 33.9 SECONDS (23.9-36.7) 08/15/22 00:10 Sodium 138 mmol/L (136-145) 08/21/22 03:39 Potassium 3.5 mmol/L (3.5-5.1) 08/21/22 03:39 Chloride 104 mmol/L (98-107) 08/21/22 03:39 Carbon Dioxide 24 mmol/L (22-29) 08/21/22 03:39 Anion Gap 13.5 (5-19) 08/21/22 03:39 BUN 12 mg/dL (8-23) 08/21/22 03:39 Creatinine 0.8 mg/dL (0.7-1.2) 08/21/22 03:39 GFR Calculation Not Reportable 08/21/22 03:39 Glucose 93 mg/dL (65-115) 08/21/22 03:39 POC Glucose 170 mg/dL (70-110) H 08/21/22 10:56 Calculated Osmolality 285 mOsm/kg (285-295) 08/21/22 03:39 Lactic Acid 1.0 mmol/L (0.5-2.2) 08/15/22 06:44 Lactate 2.1 mmol/L (0.5-2.2) 08/15/22 00:10 Calcium 8.7 mg/dL (8.5-10.5) 08/21/22 03:39 Phosphorus 3.6 mg/dL (2.5-4.5) 08/16/22 02:42 Magnesium 2.2 mg/dL (1.7-2.3) 08/16/22 02:42 Total Bilirubin 0.3 mg/dL (0.15-1.2) 08/21/22 03:39 AST 12 U/L (0-40) 08/21/22 03:39 ALT 10 U/L (0-41) 08/21/22 03:39 Alkaline Phosphatase 77 U/L (40-130) 08/21/22 03:39 Creatine Kinase 23 U/L (39-308) L 08/18/22 03:18 C-Reactive Protein 147.3 mg/L (0.0-4.9) H 08/15/22 00:10 Total Protein 5.8 g/dL (6.6-8.7) L 08/21/22 03:39 Albumin 3.2 g/dL (3.5-5.2) L 08/21/22 03:39 Globulin 2.6 g/dL (1.3-4.6) 08/21/22 03:39 Procalcitonin 0.34 ng/mL (0-0.5) 08/15/22 06:44 TSH 1.94 uIU/mL (0.27-4.20) 08/16/22 02:42 Random Cortisol 7.35 ug/dL (2.47-19.5) 08/16/22 02:42 Urine Color Yellow (Yellow) 08/16/22 11:34 Urine Appearance Clear (CLEAR) 08/16/22 11:34 Urine pH 5 (5-7) 08/16/22 11:34 Ur Specific [place] 1.020 (1.005-1.030) 08/16/22 11:34 Urine Protein Neg (Negative) 08/16/22 11:34 Urine Glucose (UA) 2+ (Normal) H 08/16/22 11:34 Urine Ketones Negative (Negative) 08/16/22 11:34 Urine Blood Neg (Negative) 08/16/22 11:34 Urine Nitrate Negative (Negative) 08/16/22 11:34 Urine Bilirubin Neg (Negative) 08/16/22 11:34 Urine Urobilinogen Norm mg/dL (Negative) 08/16/22 11:34 Ur Leukocyte Esterase Negative (Negative) 08/16/22 11:34 Ur Random Sodium 112 mmol/L 08/20/22 21:52 CSF Appearance Clear (CLEAR) 08/15/22 04:05 CSF Color Colorless (COLORLESS) 08/15/22 04:05 CSF WBC 1 /uL (0-5) 08/15/22 04:05 CSF RBC 0 10^3/uL (0-0) 08/15/22 04:05 CSF Total Cell Counted 41 08/15/22 04:05 CSF Mononuclear # Auto 0.001 10^3/uL (50-90) L 08/15/22 04:05 CSF Mononuclear WBCs % 93 % (50-90) H 08/15/22 04:05 CSF Polynuclear WBCs # 0.000 10^3/uL (0-10) 08/15/22 04:05 CSF Polynuclear WBCs % 7 % (0-10) 08/15/22 04:05 CSF Glucose 125 mg/dL (40-70) H 08/15/22 04:05 CSF Total Protein 36 mg/dL (15-45) 08/15/22 04:05 Nasal Influ A H1 2008 PCR Not detected (NOT DETECT) 08/15/22 04:12 Vancomycin Trough 15.1 ug/mL (10-15) H 08/16/22 15:50 LARY Titer 2 1:80 titer H 08/18/22 03:18 LARY Nuclear Membr Pat Nuclear, speckled A 08/18/22 03:18 LARY Pattern 2 A 08/18/22 03:18 LARY IFA Animal Tis Ttr 1:40 titer H 08/18/22 03:18 LARY IFA Animal Tis Res Positive (NEGATIVE) A 08/18/22 03:18 DOMINIC-1 Antibody <1.0 neg AI (<1.0 NEG) 08/18/22 03:18 SS-A Antibody <1.0 neg AI (<1.0 NEG) 08/18/22 03:18 SS-B Antibody <1.0 neg AI (<1.0 NEG) 08/18/22 03:18 Sm (Becker) Antibody <1.0 neg AI (<1.0 NEG) 08/18/22 03:18 HOSPITAL [employer]OUNT MANAGER Antibody <1.0 neg AI (<1.0 NEG) 08/18/22 03:18 Scl-70 Antibody <1.0 neg AI (<1.0 NEG) 08/18/22 03:18 Centromere B Antibody <1.0 neg AI (<1.0 NEG) 08/18/22 03:18 Thyroid Peroxidase Ab 2 IU/mL (<9) 08/18/22 03:18 Complement C3c 166 mg/dL 08/18/22 03:18 Complement C4c 20 mg/dL 08/18/22 03:18 CH50 Classical Pathway >60 U/mL (31-60) H 08/18/22 03:18 Adenovirus (PCR) Not detected (NOT DETECT) 08/15/22 04:12 Lyme Ab (Western Blot) <0.90 index 08/17/22 11:24 C. pneumoniae DNA (PCR) Not detected (NOT DETECT) 08/15/22 04:12 Coronavirus 229E (PCR) Not detected (NOT DETECT) 08/15/22 04:12 Human Metapneumovir PCR Not detected (NOT DETECT) 08/15/22 04:12 Influenza A (H1) PCR Not detected (NOT DETECT) 08/15/22 04:12 Influenza A (H3) PCR Not detected (NOT DETECT) 08/15/22 04:12 Influenza Type A Ag negative (Negative) 08/15/22 01:15 Influenza Type A (PCR) Not detected (NOT DETECT) 08/15/22 04:12 Influenza Type B Ag negative (Negative) 08/15/22 01:15 Influenza Type B (PCR) Not detected (NOT DETECT) 08/15/22 04:12 M. pneumoniae (PCR) Not detected (NOT DETECT) 08/15/22 04:12 Parainfluenza 1 (PCR) Not detected (NOT DETECT) 08/15/22 04:12 Parainfluenza 2 (PCR) Not detected (NOT DETECT) 08/15/22 04:12 Parainfluenza 3 (PCR) Not detected (NOT DETECT) 08/15/22 04:12 Parainfluenza 4 (PCR) Not detected (NOT DETECT) 08/15/22 04:12 RSV Type A (PCR) Not detected (NOT DETECT) 08/15/22 04:12 RSV Type B (PCR) Not detected (NOT DETECT) 08/15/22 04:12 Entero/Rhino (PCR) Not detected (NOT DETECT) 08/15/22 04:12 Rickettsia IgG Ab Not detected 08/17/22 11:24 Rickettsia IgM Ab Not detected 08/17/22 11:24 SARS-CoV-2 (PCR) Not detected (NOT DETECT) 08/15/22 04:12 SARS-CoV-2 Ag (Rapid) negative (Negative) 08/15/22 01:15 Blood Type A Negative 08/21/22 09:58 Rho(D) Type Negative 08/21/22 09:58 Antibody Screen Negative 08/21/22 09:58 Crossmatch See Detail 08/21/22 09:58 Radiology Impressions Chest X-Ray 08/15/22 00:41 IMPRESSION: Stable chest with no definite acute process. Neck CT 08/15/22 00:41 IMPRESSION: 1. No suspicious neck mass or bulky cervical lymphadenopathy identified on CT. If a palpable concerning neck mass is persistent, follow with ENT. 2. A few tiny nodes as described. Other chronic findings above. Head/Neck Ultrasound 08/15/22 02:18 IMPRESSION: 1. Small left lower neck lymph node is unchanged from the same-day CT. This is probably a left supraclavicular node. 2. This is not overtly suspicious by morphology and is very small. Advise correlation. Recommend 3 to six-month follow-up exam. Head CT 08/15/22 02:43 IMPRESSION: 1. No focal hemorrhage or midline shift. 2. Old strokes and other chronic findings are again seen. Lumbar Spine CT 08/17/22 17:00 IMPRESSION: 1. Moderate to severe diffuse lumbar degenerative change at L2-S1. 2. No acute fracture or focal bone destruction noted. 3. Other chronic findings above. Recent Clincial Data Last Vital Signs Temp 97.7 F 08/21/22 16:34 Pulse 70 08/21/22 14:17 Resp 14 08/21/22 16:34 BP 131/63 08/21/22 16:34 Pulse Ox 95 08/21/22 15:17 O2 Del Method 08/21/22 08:00 O2 Flow Rate 2 08/20/22 13:15 Vital Signs Temp Pulse Resp BP Pulse Ox O2 Del Method O2 Del Method 08/21/22 16:34 97.7 F 14 131/63 08/21/22 14:00 72 08/21/22 15:17 97.4 F L 14 127/70 95 08/21/22 14:17 97.7 F 70 14 115/64 96 08/21/22 14:02 97.6 F 75 14 119/68 96 08/21/22 13:46 97.8 F 14 143/77 96 08/21/22 12:00 97.9 F 65 18 150/62 97 08/21/22 08:00 98.0 F 67 15 143/66 Room Air 08/21/22 08:00 73 98 Room Air 08/21/22 06:00 72 Intake & Output/Weight 08/19/22 08/20/22 08/21/22 08/22/22 06:59 06:59 06:59 06:59 Intake Total 1320 / 1320 1380 / 1380 1300 / 1300 350 / 350 Output Total 650 / 650 150 / 150 300 / 300 Balance 670 / 670 1230 / 1230 1000 / 1000 350 / 350 Vitals Last Vital Signs Temp 97.7 F 08/21/22 16:34 Pulse 70 08/21/22 14:17 Resp 14 08/21/22 16:34 BP 131/63 08/21/22 16:34 Pulse Ox 95 08/21/22 15:17 O2 Del Method 08/21/22 08:00 O2 Flow Rate 2 08/20/22 13:15 TS Medications Medications Acetaminophen (Acetaminophen 325 Mg Tablet) 650 mg PO Q6H PRN PRN Reason: Mild/Mod Pain Or Temp >/= 101 Last Admin: 08/19/22 08:17 Dose: 650 mg Apixaban (Apixaban 5 Mg Tablet) 5 mg PO BID MAGI Last Admin: 08/15/22 17:32 Dose: 5 mg Ascorbic Acid (Ascorbic Acid 500 Mg Tablet) 500 mg PO DAILY [facility] Last Admin: 08/21/22 08:16 Dose: 500 mg Aspirin (Aspirin 81 Mg Ec Tablet) 81 mg PO DAILY [facility] Last Admin: 08/21/22 08:16 Dose: 81 mg Atorvastatin Calcium (Atorvastatin 40 Mg Tablet) 20 mg PO DAILY [facility] Last Admin: 08/21/22 08:16 Dose: 20 mg Cyclobenzaprine HCl (Cyclobenzaprine 10 Mg Tablet) 5 mg PO TID PRN PRN Reason: MUSCLE SPASMS Last Admin: 08/15/22 22:37 Dose: 5 mg Dextrose (Dextrose 50% Syringe 50 Ml) 25 ml IVP ONCE PRN; Protocol PRN Reason: hypoglycemia protocol Dextrose (Dextrose 50% Syringe 50 Ml) 50 ml IVP PRN PRN; Protocol PRN Reason: hypoglycemia protocol Ferrous Sulfate (Ferrous Sulfate Ec 325 Mg Tablet) 325 mg PO DAILY [facility] Last Admin: 08/21/22 08:15 Dose: 325 mg Glucagon (Glucagon 1 Mg/Ml Inj 1 Ml) 1 mg IM ONCE PRN; Protocol PRN Reason: Adult Acute Hypoglycemia Prot. Dextrose (D5w) 500 mls @ 100 mls/hr IV ONCE PRN; Protocol PRN Reason: Adult Acute Hypoglycemia Prot Insulin Glargine (Insulin Glargine 100 Units/1 Ml) 20 unit SUBCUT BEDTIME [facility] Last Admin: 08/20/22 22:14 Dose: 20 unit Insulin Human Lispro (Insulin Lispro 100 Unit/1 Ml) 0 unit SUBCUT WM&BEDTIME [facility]; Protocol Last Admin: 08/21/22 14:21 Dose: 1 unit Ketorolac Tromethamine (Ketorolac 30 Mg/Ml Inj) 15 mg IVP Q8H PRN PRN Reason: MODERATE PAIN Stop: 08/22/22 15:41 Lidocaine (Lidocaine 5% Patch) 1 patch TOPICAL [id number] [facility] Last Admin: 08/21/22 08:15 Dose: 1 patch Lidocaine HCl (Lidocaine 2% Viscous 15 Ml Udc) 1 ml TOPICAL PRN PRN PRN Reason: Anesthetic prior to IV start Midazolam HCl (Midazolam 1 Mg/Ml Inj 2 Ml) 2 mg IVP Q5M PRN PRN Reason: Preop Anxiety Morphine Sulfate (Morphine 4 Mg/Ml Sdv 1 Ml) 0 mg IVP Q5M PRN PRN Reason: Breakthrough Pain PACU PhaseII Ondansetron HCl (Ondansetron 2 Mg/Ml Sdv 2 Ml) 4 mg IVP Q8H PRN PRN Reason: vomiting, or N/V if npo Ondansetron HCl (Ondansetron 2 Mg/Ml Sdv 2 Ml) 4 mg IVP Q15M PRN PRN Reason: Nausea/Vomiting PACU PHASE II Oxycodone HCl (Oxycodone 5 Mg Ir Tab/Cap) 5 mg PO Q4H PRN PRN Reason: MODERATE PAIN Last Admin: 08/20/22 14:15 Dose: 5 mg Sodium Chloride (Sodium Chloride 1 Gm Tablet) 1 gm PO BID MAGI Last Admin: 08/21/22 08:15 Dose: 1 gm Discontinued Medications Acetaminophen (Acetaminophen 325 Mg Tablet) 650 mg PO ONCE ONE Stop: 08/15/22 02:10 Last Admin: 08/15/22 02:17 Dose: 650 mg Benzocaine (Cetylpyridinium Lozenge) 1 each MUCOUS MEM ONCE ONE Stop: 08/20/22 10:45 Last Admin: 08/20/22 14:17 Dose: Not Given Epinephrine HCl (Epinephrine 1 Mg/Ml Inj) 1 mg XX ONCE ONE Stop: 08/20/22 13:05 Last Admin: 08/20/22 12:50 Dose: 1 mg Fentanyl (Fentanyl 50 Mcg/Ml Inj 2ml) 50 mcg IVP ONCE ONE Stop: 08/15/22 03:34 Last Admin: 08/15/22 04:00 Dose: 50 mcg Sodium Chloride (Sodium Chloride 0.9%) 1,000 mls @ 999 mls/hr IV .Q1H1M ONE Stop: 08/15/22 05:05 Last Admin: 08/15/22 04:14 Dose: 999 mls/hr Vancomycin/PEG/NADA/Lysine/Water (Vancocin) 1,250 mg in 250 mls @ 250 mls/hr IV ONCE ONE; Protocol Stop: 08/15/22 05:04 Last Admin: 08/15/22 04:49 Dose: 250 mls/hr Ceftriaxone Sodium 2,000 mg/ (Sodium Chloride) 50 mls @ 100 mls/hr IV ONCE ONE; Protocol Stop: 08/15/22 04:34 Last Infusion: 08/15/22 04:48 Dose: Infused Sodium Chloride (Sodium Chloride 0.9%) 1,000 mls @ 75 mls/hr IV .[id number] [facility] Last Admin: 08/15/22 12:51 Dose: 75 mls/hr Ceftriaxone Sodium 2,000 mg/ (Sodium Chloride) 50 mls @ 100 mls/hr IV Q24H [facility]; Protocol Last Infusion: 08/17/22 04:44 Dose: Infused Vancomycin/PEG/NADA/Lysine/Water (Vancocin) 1,250 mg in 250 mls @ 250 mls/hr IV Q12H [facility] Last Infusion: 08/17/22 06:00 Dose: Infused Ceftriaxone Sodium 1,000 mg/ (Sodium Chloride) 50 mls @ 100 mls/hr IV Q24H [facility]; Protocol Last Infusion: 08/18/22 04:19 Dose: Infused Acetaminophen (Acetaminophen) 1,000 mg in 100 mls @ 400 mls/hr IV Q8H [facility] Stop: 08/18/22 08:44 Acetaminophen (Acetaminophen) 1,000 mg in 100 mls @ 400 mls/hr IV Q8H PRN PRN Reason: PAIN CONTROL Sodium Chloride (Sodium Chloride 0.9%) 1,000 mls @ 30 mls/hr IV .Q24H [facility] Stop: 08/21/22 10:44 Last Infusion: 08/20/22 13:24 Dose: Infused Sodium Chloride (Sodium Chloride 0.9% (100 Ml)) Confirm Administered Dose 100 mls @ as directed .ROUTE .STK-MED ONE Stop: 08/21/22 13:19 Last Admin: 08/21/22 14:21 Dose: 75 mls/hr Iohexol (Iohexol 350 Mg/Ml 500 Ml Btl (Per Ml)) 0 ml IV ONCE ONE Stop: 08/15/22 01:13 Last Admin: 08/15/22 01:12 Dose: 100 ml Lidocaine HCl (Lidocaine 1% Inj 20 Ml Mdv (Ml)) 0.1 ml INTRADERMA PRN PRN PRN Reason: anesthetic prior to IV start Stop: 08/21/22 10:43 Morphine Sulfate (Morphine 4 Mg/Ml Sdv 1 Ml) 4 mg IVP ONCE ONE Stop: 08/15/22 00:50 Last Admin: 08/15/22 01:14 Dose: 4 mg Ondansetron HCl (Ondansetron 2 Mg/Ml Sdv 2 Ml) 4 mg IVP ONCE ONE Stop: 08/15/22 00:50 Last Admin: 08/15/22 01:14 Dose: 4 mg Polyethylene Glycol/Electrolytes (Peg /E-Lyte Soln 4,000 Ml Btl) 4,000 ml PO ONCE ONE Stop: 08/19/22 08:16 Last Admin: 08/19/22 10:43 Dose: 4,000 ml Propofol (Propofol 10 Mg/Ml Sdv 20 Ml) Confirm Administered Dose 200 mg .ROUTE .STK-MED ONE Stop: 08/20/22 12:00 Propofol (Propofol 10 Mg/Ml Sdv 20 Ml) Confirm Administered Dose 200 mg .ROUTE .STK-MED ONE Stop: 08/20/22 12:19 Propofol (Propofol 10 Mg/Ml Sdv 20 Ml) Confirm Administered Dose 200 mg .ROUTE .STK-MED ONE Stop: 08/20/22 12:41 Sodium Chloride (Sodium Chloride 1 Gm Tablet) 2 gm PO BID MAGI Last Admin: 08/18/22 08:28 Dose: 2 gm Allergies amoxicillin Allergy (Unknown, Verified 08/02/22 16:32) Unknown ciprofloxacin Allergy (Unknown, Verified 08/02/22 16:32) Unknown levofloxacin Allergy (Unknown, Verified 08/02/22 16:32) Unknown clarithromycin Allergy (Verified 08/02/22 16:32) rash/welps lisinopril Allergy (Verified 08/02/22 16:32) unknown losartan Allergy (Verified 08/02/22 16:32) rash spironolactone Allergy (Verified 08/12/22 11:56) Unknown Home Medications apixaban 5 mg tablet (Eliquis) 5 mg PO BID 12/09/20 [History Confirmed 08/16/22] aspirin 81 mg tablet,delayed release (Adult Low Dose Aspirin) 81 mg PO DAILY 12/09/20 [History Confirmed 08/16/22] metformin 500 mg tablet 500 mg PO BID 12/09/20 [History Confirmed 08/16/22] simvastatin 20 mg tablet 20 mg PO DAILY 12/09/20 [History Confirmed 08/16/22] mometasone 0.1 % topical cream 1 applic topical DAILY PRN Rash 01/21/22 [History Confirmed 08/16/22] methocarbamol 750 mg tablet 750 mg PO Q8H #30 tabs 06/19/22 [Rx Confirmed 08/16/22] ascorbic acid (vitamin C) 500 mg capsule,extended release 500 mg PO DAILY 07/02/22 [History Confirmed 08/16/22] DME: Walker #1 ea 08/02/22 [Rx Confirmed 08/16/22] ergocalciferol (vitamin D2) 1,250 mcg (50,000 unit) capsule 1,250 mcg PO .weekly #12 caps 08/02/22 [Rx Confirmed 08/16/22] ferrous sulfate 325 mg (65 mg iron) tablet 325 mg PO DAILY #90 tabs 08/02/22 [Rx Confirmed 08/16/22] ondansetron 4 mg disintegrating tablet 4 mg PO Q8H PRN nausea and vomiting #15 tabs 08/10/22 [Rx Confirmed 08/16/22] oxycodone 5 mg tablet 5 mg PO Q4H PRN pain #20 tabs 08/10/22 [Rx Confirmed 08/16/22] multivitamin 1 tab PO DAILY 08/16/22 [History Confirmed 08/16/22] polyethylene glycol 3350 17 gram/dose oral powder (Miralax) 12.75 g PO DAILY 08/16/22 [History Confirmed 08/16/22] Discharge Plan Discharge Patient Disposition: Home Condition: Stable Prescriptions: No Action aspirin [Adult Low Dose Aspirin] 81 mg tablet,delayed release (DR/EC) 81 mg PO DAILY metformin 500 mg tablet 500 mg PO BID simvastatin 20 mg tablet 20 mg PO DAILY Eliquis 5 mg tablet 5 mg PO BID mometasone 0.1 % cream 1 applic topical DAILY PRN (Reason: Rash) ascorbic acid (vitamin C) 500 mg capsule, extended release 500 mg PO DAILY ergocalciferol (vitamin D2) 1,250 mcg (50,000 unit) capsule 1,250 mcg PO .weekly Qty: 12 0RF Rx Instructions: Tuesday ferrous sulfate 325 mg (65 mg iron) tablet 325 mg PO DAILY Qty: 90 0RF (DME) DME: Walker Unit See Rx Instructions .ROUTE .MEDSUPPLY Qty: 1 0RF Rx Instructions: Code E0143 and E0156 walker 4 wheels and seat methocarbamol 750 mg tablet 750 mg PO Q8H Qty: 30 0RF ondansetron 4 mg tablet,disintegrating 4 mg PO Q8H PRN (Reason: nausea and vomiting) Qty: 15 0RF oxycodone 5 mg tablet 5 mg PO Q4H PRN (Reason: pain) Qty: 20 0RF multivitamin Tablet 1 tab PO DAILY Miralax 17 gram/dose Powder 12.75 g PO DAILY Patient Instructions: GI Discharge Instructions, Opioid Safety Transfer Attestations Time Spent in Transfer Care: greater than 30 min Quality Metrics Clinical Quality Measures [ No reported AMI, CVA or VTE this stay] Coding Level of Care Code Acute Computer Systems Hardware Analyst for Chg Fwd Diagnoses Anemia D64.9 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
[2022-08-21 17:28] LABS: Glucose Point of Care 228 mg/dL (70-110)
[2022-08-21 19:04] LABS: Basophils % 0.3 %; Eosinophils # 0.1 10^3/uL (0.0-0.8); Eosinophils % 1.6 %; Hematocrit 31.6 % (42.0-52.0); Hemoglobin 8.8 g/dL (11.7-16.6); Lymphocytes # 0.9 10^3/uL (0.8-4.8); Lymphocytes % 14.1 %; Mean Corpuscular HGB Conc 27.8 g/dL (30.0-36.0); Mean Corpuscular Hemoglobin 20.9 pg (28.0-34.0); Mean Corpuscular Volume 74.9 fl (80-94); Mean Platelet Volume 10.2 fL (7.4-10.4); Monocytes # 0.4 10^3/uL (0.2-0.9); Monocytes % 6.6 %; Neutrophils # 4.93 10^3/uL (1.8-7.7); Neutrophils % 76.9 %; Nucleated Red Blood Cells % 0 %; Platelet Count 424 10^3/cmm (130-400); Red Blood Count 4.22 10^6/uL (4.1-5.3); Red Cell Distribution Width 20.4 % (12.1-15.1); White Blood Count 6.4 10^3/uL (4.0-10.0)
[2022-08-21 20:42] LABS: Glucose Point of Care 146 mg/dL (70-110)
[2022-08-21] MEDS: insulin glargine 100 units/1 mL 20 UNIT SUBCUT (20:43)
--- NOTE | 2022-08-21 21:01 | PC.NURSE ---
EMS transport picked up patient at this time. Receiving facility [facility] called with update.
[2022-08-22 01:09] LABS: RMSF IGM NOT DETECTED
[2022-08-24 15:22] LABS: Mismatch Repari Proteins-IHC See Report
[2022-08-24 15:55] LABS: DNA AB (DS) CRITHIDIA,IFA NEGATIVE (NEGATIVE)
[2022-08-24 21:59] LABS: E. Chaffeensis AB IGG <1:64; E. Chaffeensis AB IGM <1:20
== END 2022-08-21 21:11 | disposition short-term general hospital (02) | DRG 378 ==
LOC: ER 02:00 → ER IP 04:57 → MEDSURG 12:41
PROVIDERS: Internal Medicine; Student in an Organized Health Care Education/Training Program; Surgery; Admitting Provider Internal Medicine; Emergency Provider Emergency Medicine; PCP Nurse Practitioner; Visit Provider Internal Medicine
PROC: 0DJ08ZZ Inspection of Upper Intestinal Tract, Via Natural or Artificial Opening Endoscopic (ICD-10-PCS; CPT 43235; principal; 2022-08-20 11:00)
PROC: 0DJD8ZZ Inspection of Lower Intestinal Tract, Via Natural or Artificial Opening Endoscopic (ICD-10-PCS; CPT 45378; 2022-08-20 11:00)
DX: K31.811 Angiodysplasia of stomach and duodenum with bleeding (principal); E87.1 Hypo-osmolality and hyponatremia; D50.0 Iron deficiency anemia secondary to blood loss (chronic); K63.9 Disease of intestine, unspecified; K64.8 Other hemorrhoids; Z86.73 Personal history of transient ischemic attack (TIA), and cerebral infarction without residual deficits; E11.65 Type 2 diabetes mellitus with hyperglycemia; I10 Essential (primary) hypertension; Z95.0 Presence of cardiac pacemaker; I25.10 Atherosclerotic heart disease of native coronary artery without angina pectoris; Z95.1 Presence of aortocoronary bypass graft; Z87.891 Personal history of nicotine dependence; Z87.01 Personal history of pneumonia (recurrent); C67.9 Malignant neoplasm of bladder, unspecified; R59.0 Localized enlarged lymph nodes; M62.830 Muscle spasm of back; Z79.82 Long term (current) use of aspirin; Z79.891 Long term (current) use of opiate analgesic; R50.9 Fever, unspecified; E86.0 Dehydration; E55.9 Vitamin D deficiency, unspecified; Z88.1 Allergy status to other antibiotic agents; M79.602 Pain in left arm; M54.2 Cervicalgia; Z79.84 Long term (current) use of oral hypoglycemic drugs
CPT/HCPCS: 36415; 36416; 36430; 43239; 45380; 45381; 62270; 70450; 70491; 71045; 72131; 76536; 80048; 80053; 80202; 81003; 82533; 82550; 82945; 82962; 83605; 83735; 84100; 84145; 84157; 84300; 84443; 85025; 85610; 85651; 85730; 86140; 86160; 86162; 86235; 86255; 86376; 86618; 86666; 86757; 86850; 86900; 86920; 87040; 87070; 87075; 87205; 87426; 87486; 87581; 87633; 87804; 88108; 88305; 88342; 88360; 89050; 93005; 93306; 96365; 96367; 96372; 96375; 97110; 97116; 97161; 97167; 97530; 97535; 99285; J0171; J0696; J1815; J2270; J2405; J2704; J3010; J3370; J7030; P9016; Q3014; Q9967

== ENCOUNTER → 2023-02-23 08:36 | Outpatient (BNVA) | payer MEDICARE, SELFPAY | PROVIDERS: PCP Nurse Practitioner; Visit Provider Nurse Practitioner | DX: E11.65 Type 2 diabetes mellitus with hyperglycemia (principal); E55.9 Vitamin D deficiency, unspecified; E61.1 Iron deficiency; H61.23 Impacted cerumen, bilateral; R26.9 Unspecified abnormalities of gait and mobility | CPT/HCPCS: 80053; 80061; 82306; 82607; 83036; 83540; 84443; 85025 ==

== ENCOUNTER → 2023-03-23 08:39 | Outpatient (BNVA) | payer MEDICARE, SELFPAY | PROVIDERS: PCP Nurse Practitioner; Visit Provider Nurse Practitioner | DX: D64.9 Anemia, unspecified (principal) | CPT/HCPCS: 83540; 85025 ==

== ENCOUNTER → 2023-07-06 10:59 | Outpatient (BNVA) | payer MEDICARE, SELFPAY | PROVIDERS: PCP Nurse Practitioner; Visit Provider Nurse Practitioner | DX: E11.65 Type 2 diabetes mellitus with hyperglycemia (principal) | CPT/HCPCS: 80053; 80061; 83036; 85025 ==

== ENCOUNTER 2023-07-21 13:05 | Observation (INO) | payer MEDICARE, SELFPAY ==
[2023-07-21] VITALS (28 sets, daily range): BP systolic 114–192; BP diastolic 59–115; PULSE 62–87; RESP 16–24; TEMP 37.2; O2SAT 93–100; BMI 23.0
--- NOTE | 2023-07-21 | XR_ITS ---
NOTE: Report was unsigned for reason: Order was edited. Original Signature date and time was: 07/21/23 @ 1442 Exam: XR lumbar spine 2-3V* [id number] Date/Time of Exam: 07/21/2023 1:52 PM Reason For Exam: Trauma No acute fracture or dislocation. Advanced degenerative disc changes from L2-S1. Spondylosis. Facet arthropathy at all levels. Extensive aortoiliac atherosclerosis. Rectal fecal impaction. IMPRESSION: 1. No fracture or malalignment. 2. Moderately advanced degenerative changes. MTDD
--- NOTE | 2023-07-21 13:14 | CT_ITS ---
WS: [id number] CT HEAD TECHNIQUE: Noncontrast CT of the head obtained from the skullbase to the vertex. CLINICAL INFORMATION: FALL COMPARISON: 2021 DLP: [address] scans at [facility] use at least one of these dose optimization techniques: automated e xposure control; mA and/or kV adjustment per patient size (includes targeted exams where dose is matc hed to clinical indication); or iterative reconstruction. FINDINGS: No evidence of intracranial hemorrhage or mass effect. Ventricular system and basal cisterns are mendoza nt. Moderate to advanced small vessel changes with moderate parenchymal volume loss. Chronic infarct in the RIGHT frontoparietal junction with encephalomalacia. Chronic infarct in the RIGHT cerebellum w ith encephalomalacia. Chronic infarct in the RIGHT parasagittal occipital lobe and posterior temporal lobe with encephalomalacia. Paranasal sinuses and mastoid air cells are well aerated. .Normal visualized soft tissues. IMPRESSION: 1. No evidence of intracranial hemorrhage or mass effect. 2. Multiple chronic infarcts with encephalomalacia described above unchanged since 2021. 3. No acute intracranial findings.
--- NOTE | 2023-07-21 13:14 | CT_ITS ---
WS: [id number] CT CERVICAL TRAUMA TECHNIQUE: Noncontrast CT of the cervical spine with coronal and sagittal reformatted images. CLINICAL INFORMATION: FALL COMPARISON: 2017 DLP: [address] scans at [facility] use at least one of these dose optimization techniques: automated e xposure control; mA and/or kV adjustment per patient size (includes targeted exams where dose is matc hed to clinical indication); or iterative reconstruction. FINDINGS: Straightening of the normal cervical lordosis with advanced spondylitic changes. Disc base narrowing worse at C3-C4 C5-C6, C6-C7, and C7-T1. Slight anterolisthesis C2 on C3. Normal craniocervical juncti on. Normal C1-C2 articulation. Dens is normal in appearance. Normal occipital condyles. No high-grade spinal canal narrowing. Normal C1 ring. No evidence of acute fracture or dislocation. Normal prevertebral soft tissues. Mastoids air cells are well aerated. IMPRESSION: No evidence of acute fracture or dislocation.
--- NOTE | 2023-07-21 13:31 | XR_ITS ---
WS: [id number] Exam: XR sacrum coccyx min 2V [id number] Date/Time of Exam: 07/21/2023 1:52 PM Reason For Exam: trauma No sign of sacrococcygeal fracture or dislocation. Degenerative change of the SI joints and visualize d lower lumbar spine. Osteopenia. Moderate stool retention in the rectum. IMPRESSION: 1. No acute fracture noted.
--- NOTE | 2023-07-21 13:31 | XR_ITS ---
WS: [id number] Exam: XR pelvis 1-2V* [id number] Date/Time of Exam: 07/21/2023 1:52 PM Reason For Exam: trauma No acute pelvic fracture. Moderate DJD of the hips and SI joints. Postoperative changes in the RIGHT pelvis. IMPRESSION: 1. No acute pelvic fracture.
--- NOTE | 2023-07-21 13:32 | ED_ITS ---
HPI - Head Injury General: Chief complaint: Head Injury Stated complaint: fall Time Seen by Provider: 07/21/23 13:28 Source: patient Mode of arrival: ambulatory History of Present Illness: 87-year-old male states he got lightheaded dizzy and fell. Happened around 1130 he was walking a flight of stairs he fell backwards. He has a small laceration on the back of his head he is on Eliquis he had a single episode of vomiting. Paige hernandez has been complaining of some low back pain as well. He denies any chest pain or abdominal pain. Discussion on his family had been drinking the night before. 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 Anemia Back pain Delirium Dermatitis Diabetes mellitus with hyperglycemia Essential (primary) hypertension History of CVA (cerebrovascular accident) Internal hemorrhoids Iron deficiency Lesion of bladder removed colo Metabolic encephalopathy Pacemaker Surgical History History of appendectomy 10/28/22 slow growing cancer in [place] History of colon resection 10/28/22 [place] with slow growing cancer History of colonoscopy 2010 History of permanent cardiac pacemaker placement January 13, 2022 at [facility] History of prostate surgery 2009 History of tonsillectomy Family History Brother FH: CVA (cerebrovascular accident) Father FH: CVA (cerebrovascular accident) Social History Smoking and tobacco/nicotine status: former use of tobacco/nicotine Second hand smoke exposure: No Alcohol intake: never Substance/Drug Use: never Adopted: No Caregiver/support person: No Lives independently: Yes Household members: spouse Housing: House Marital status: Current occupational status: retired Do you think of yourself as: Straight/Heterosexual Current gender identity: Male Physical Exam Const: COMMON NORMALS: no acute distress GENERAL APPEARANCE: cooperative a nd comfortable ORIENTATION/CONSCIOUSNESS: Yes awake HENMT: COMMON NORMALS: normocephalic, atraumatic and hearing grossly normal bilaterally HEAD & SCALP: normocephalic and atraumatic Resp: COMMON NORMALS: normal respiratory effort, No retractions, No use of accessory muscles and clear to auscultation bilaterally AUSCULTATION: clear to auscultation bilaterally Cardio: COMMON NORMALS: regular rate, regular rhythm and No murmurs present (Cardio) RATE: regular rate RHYTHM: regular rhythm GI: COMMON NORMALS: Soft to palpation and No hepatosplenomegaly present AUSCULTATION: Yes normoactive bowel sounds PALPATION: Yes Soft to palpation, No Tenderness to palpation present (GI), No Guarding due to palpation present (GI) and Yes No hepatosplenomegaly present Extremity: COMMON NORMALS: normal to inspection, capillary refill normal, no clubbing, cyanosis or edema, no calf tenderness and no pedal edema Skin: COMMON NORMALS: no rashes or lesions noted GENERAL SKIN EXAM: no rashes or lesions noted Course Vital Signs: Vital signs: Vital Signs Temperature 98.9 F 07/21/23 20:00 Pulse Rate 66 07/22/23 11:05 Respiratory Rate 17 07/22/23 11:05 Blood Pressure 113/64 07/22/23 08:00 Pulse Oximetry 97 07/22/23 11:05 Oxygen Delivery Me thod Room Air 07/22/23 09:48 MDM - Head Injury Medcial Decision Making Positive delta troponin at little over +5. Syncopal episode. The drinking from the night before may have had something to do with it as well. He is on Eliquis CT the head was negative as well as other imaging negative discussed with hospitalist will admit overnight rule out ND with completion serial enzymes further testing is indicated. Medical Records I reviewed the patient's medical records. Lab Data I reviewed the patient's lab results. 07/22/23 03:55 07/22/23 03:55 Radiology Impressions Chest X-Ray 07/21/23 18:51 IMPRESSION: No acute findings. Laboratory Results WBC 7.29 10^3/uL (3.29-11.43) 07/21/23 13:38 RBC 4.62 10^6/uL (3.85-5.65) 07/21/23 13:38 Hgb 13.90 g/dL (11.27-16.99) 07/21/23 13:38 Hct 42.3 % (37-53) 07/21/23 13:38 MCV 91.6 fl (82-101) 07/21/23 13:38 MCH 30.1 pg (27-33) 07/21/23 13:38 MCHC 32.9 g/dL (30-55) 07/21/23 13:38 RDW 13.2 % (12.1-15.1) 07/21/23 13:38 Plt Count 168 10^3/cmm (157-399) 07/21/23 13:38 MPV 11.5 fL (7.4-10.4) H 07/21/23 13:38 Neut % (Auto) 81.3 % 07/21/23 13:38 Lymph % (Auto) 11.5 % 07/21/23 13:38 [place] % (Auto) 5.1 % 07/21/23 13:38 Eos % (Auto) 1.0 % 07/21/23 13:38 Baso % (Auto) 0.3 % 07/21/23 13:38 Neut # (Auto) 5.93 10^3/uL (1.8-7.7) 07/21/23 13:38 Lymph # (Auto) 0.8 10^3/uL (0.8-4.8) 07/21/23 13:38 [place] # (Auto) 0.4 10^3/uL (0.2-0.9) 07/21/23 13:38 Eos # (Auto) 0.1 10^3/uL (0.0-0.8) 07/21/23 13:38 Baso # (Auto) 0.0 10^3/uL (0.0-0.1) 07/21/23 13:38 Nucleated RBC % (auto) 0 % 07/21/23 13:38 Nucleated RBCs # 0.0 /100WBC 07/21/23 13:38 Sodium 138 mmol/L (136-145) 07/21/23 13:38 Potassium 4.4 mmol/L (3.5-5.1) 07/21/23 13:38 Chloride 103 mmol/L (98-107) 07/21/23 13:38 Carbon Dioxide 20 mmol/L (22-29) L 07/21/23 13:38 Anion Gap 19.4 (5-19) H 07/21/23 13:38 BUN 21 mg/dL (8-23) 07/21/23 13:38 Creatinine 1.0 mg/dL (0.7-1.2) 07/21/23 13:38 GFR Calculation Not Reportable 07/21/23 13:38 Glucose 260 mg/dL (65-115) H 07/21/23 13:38 Calculated Osmolality 298 mOsm/kg (285-295) H 07/21/23 13:38 Calcium 9.1 mg/dL (8.5-10.5) 07/21/23 13:38 Troponin T Baseline 20 ng/L (0-15) H 07/21/23 13:38 TSH 2.50 uIU/mL (0.27-4.20) 07/21/23 13:38 All radiology interpretation(s) finalized by discharge Discharge Plan Discharge Patient Disposition: Admitted As Inpatient Admit Provider: Dana Galindo Clinical Impression: Elevated troponin I level, Closed head injury, Alcohol use Condition: Stable Coding Level of Care Code ED Performance Improvement Coordinator for Hattie Shaffer
[2023-07-21 13:45] LABS: Basophils % 0.3 %; Eosinophils # 0.1 10^3/uL (0.0-0.8); Hematocrit 42.3 % (37-53); Lymphocytes # 0.8 10^3/uL (0.8-4.8); Lymphocytes % 11.5 %; Mean Corpuscular HGB Conc 32.9 g/dL (30-55); Mean Corpuscular Hemoglobin 30.1 pg (27-33); Mean Corpuscular Volume 91.6 fl (82-101); Mean Platelet Volume 11.5 fL (7.4-10.4); Monocytes # 0.4 10^3/uL (0.2-0.9); Monocytes % 5.1 %; Neutrophils # 5.93 10^3/uL (1.8-7.7); Neutrophils % 81.3 %; Nucleated Red Blood Cells % 0 %; Platelet Count 168 10^3/cmm (157-399); Red Blood Count 4.62 10^6/uL (3.85-5.65); Red Cell Distribution Width 13.2 % (12.1-15.1); White Blood Count 7.29 10^3/uL (3.29-11.43)
[2023-07-21 14:01] LABS: Anion Gap 19.4 (5-19); Blood Urea Nitrogen 21 mg/dL (8-23); Calcium 9.1 mg/dL (8.5-10.5); Carbon Dioxide 20 mmol/L (22-29); Chloride 103 mmol/L (98-107); Glucose 260 mg/dL (65-115); Osmolality Calculated 298 mOsm/kg (285-295); Potassium 4.4 mmol/L (3.5-5.1); Sodium 138 mmol/L (136-145)
--- NOTE | 2023-07-21 14:11 | ECG_ITS ---
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 Measurements Intervals [place] Rate: 70 P: 83 ND: 144 QRS: 170 QRSD: 187 T: 9 QT: 494 QTc: 535 Interpretive Statements ELECTRONIC VENTRICULAR PACEMAKER ABNORMAL RHYTHM ECG Compared to ECG 08/15/2022 00:47:31 No significant changes Electronically Signed On 07-22-2023 14:12:46 GAS SUBSTATION OPERATOR by Lambert Robbins M.D. [email or web address]
[2023-07-21 14:52] LABS: Troponin(5th) Baseline 20 ng/L (0-15)
[2023-07-21 16:27] LABS: Troponin 5 2HR 25.68 ng/L (0-15)
[2023-07-21 16:28] LABS: Troponin 5 2HR Delta 5.68 ABS# (0-10)
--- NOTE | 2023-07-21 17:30 | ECG_ITS ---
[facility] Test Date: 2023-07-21 Pat Name: Misha Covarrubias Department: Room: [facility] Gender: Male Trade Marker: : 1935 Requested By: Daron Hidalgo Order Number: [id number] Reading MD: Lambert Robbins M.D. Measurements Intervals [place] Rate: 90 P: 81 SD: 160 QRS: 192 QRSD: 171 T: 16 QT: 443 QTc: 544 Interpretive Statements ELECTRONIC VENTRICULAR PACEMAKER ABNORMAL RHYTHM ECG Compared to ECG 07/21/2023 14:16:45 No significant changes Electronically Signed On 07-22-2023 14:20:32 ENTRY LEVEL JAVA DEVELOPER by Lambert Robbins M.D. [email or web address]
--- NOTE | 2023-07-21 18:11 | PM.HP ---
Providers/Chief Complaint Admitting Physician: Dana Galindo MD Primary Care Provider: Willis Hinkle, [employer] Chief Complaint: fall History of Present Illness Misha Covarrubias is a 87 year old male who is confused, stating that he is from a motel and he was sent to the hospital because sent him here when he was planning to go for hunting. I called to get history, is stating that lately he has been more forgetful and would state facts which are not true, is stating that Misha was Harting with his boys last night in the garage and drank a lot of whiskey with 7-Up, she was on other side of the house when she heard a bang when he was trying to bring chairs and tables back inside the house, head was bleeding that prompted visit to the ER. Stitches were applied, AICD was interrogated, hemodynamically stable, CBC BMP unremarkable, no signs of fracture. Patient was pleasant but confused requested B12, TSH urinalysis. Requested tick bite panel, no active chest pain, no significant delta troponin. TSH is normal Review of Systems General: Reports: ROS unobtainable due to medical condition Medications/Allergies Home Medications Medication Instructions Recorded Confirmed Last Taken Type metformin 500 mg tablet 500 mg PO BID 12/09/20 07/21/23 07/21/23 History simvastatin 20 mg tablet 20 mg PO QPM 12/09/20 07/21/23 07/20/23 History DME: Walker #1 ea 08/02/22 07/21/23 Unknown Rx cane #1 ea 02/23/23 07/21/23 Unknown Rx blood sugar diagnostic (OneTouch #50 ea 03/16/23 07/21/23 Unknown Rx Ultra Test strips) lancets (OneTouch UltraSoft #100 ea 03/16/23 07/21/23 Unknown Rx Lancets) apixaban 5 mg tablet (Eliquis) 5 mg PO BID 07/21/23 07/21/23 07/21/23 History empagliflozin 10 mg tablet 10 mg PO DAILY 07/21/23 07/21/23 07/21/23 History (Jardiance) Allergies Allergy/AdvReac Type Severity Reaction Status Date / Time amoxicillin Allergy Unknown Unknown Verified 07/21/23 13:22 ciprofloxacin Allergy Unknown Unknown Verified 07/21/23 13:22 levofloxacin Allergy Unknown Unknown Verified 07/21/23 13:22 clarithromycin Allergy rash/welps Verified 07/21/23 13:22 dapagliflozin [From Farxiga] Allergy itching Verified 07/21/23 13:22 lisinopril Allergy unknown Verified 07/21/23 13:22 losartan Allergy rash Verified 07/21/23 13:22 spironolactone Allergy Unknown Verified 07/21/23 13:22 PFSH Acute PFSH: Medical History Actinic dermatitis Dermatitis Diabetes mellitus with hyperglycemia Essential (primary) hypertension History of CVA (cerebrovascular accident) Iron deficiency Lesion of bladder removed colo Pacemaker Surgical History History of appendectomy 10/28/22 [place] growing [place] History of colon resection [place] with slow growing cancer History of colonoscopy 2010 History of permanent cardiac pacemaker placement January 13, 2022 at [facility] History of prostate surgery 2009 History of tonsillectomy Family History Brother FH: CVA (cerebrovascular accident) Father FH: CVA (cerebrovascular accident) Social History Smoking and tobacco/nicotine status: former use of tobacco/nicotine Second hand smoke exposure: No Alcohol intake: never Substance/Drug Use: never Adopted: No Caregiver/support person: No Lives independently: Yes Household members: spouse Housing: House Marital status: Current occupational status: retired Do you think of yourself as: Straight/Heterosexual Current gender identity: Male Vitals/I&O/Wt Last Vital Signs Pulse 62 07/21/23 16:04 Resp 18 07/21/23 16:02 BP 164/93 07/21/23 16:04 Pulse Ox 99 07/21/23 16:02 O2 Del Method Room Air 07/21/23 16:02 Weight last 48 hrs Weight 77.111 kg Physical Exam Narrative: Patient is pleasantly confused Currently on room air Pacemaker dependent Euvolemic No active signs of stroke GCS 15 Bleeding around crown of cranium, stopped, stitches applied Currently on room air Able to move extremities Confabulating Metabolic encephalopathy Data 11/16/23 13:38 07/21/23 13:38 A&P Assessment and plan (1) Internal hemorrhoids: (2) Anemia: (3) Back pain: (4) Iron deficiency: (5) Diabetes mellitus with hyperglycemia: (6) Pacemaker: (7) Essential (primary) hypertension: (8) Dermatitis: (9) Delirium: (10) Metabolic encephalopathy: (11) 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: Plan Delirium Metabolic encephalopathy due to recent use of alcohol Continue thiamine, folic acid Look for tick bites Requested Lyme disease panel Start doxycycline Requested chest x-ray, UA, B12 for metabolic encephalopathy work-up No active signs of fracture Hold Eliquis Stitches applied on scalp Patient is hemodynamically stable DVT prophylaxis: Hold because of recent trauma Hypertension: Start amlodipine We will keep him on consistent carb diet along insulin Patient may be suffering from dementia as per the he has been stating facts which are not true DNR DNI discussed with the Attestations Medical Necessity Statement*: Anticipating discharge within 48 hours Diagnoses Internal hemorrhoids K64.8 Anemia D64.9 Back pain M54.9 Iron deficiency E61.1 Diabetes mellitus with hyperglycemia E11.65 Pacemaker Z95.0 Essential (primary) hypertension I10 Dermatitis L30.9 Delirium R41.0 Metabolic encephalopathy G93.41 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
--- NOTE | 2023-07-21 18:22 | USCV_ITS ---
Misha Covarrubias Age: 87 Gender: M : 1935 Exam Date: 07/21/2023 20:20 Ordering Phys: Dana Galindo MD Technologist: MAN [place] [facility] [place]: syncope. s/p pacer / defibrillator 2021. BP: 173 / 95 HR: 73 Rhythm: Other Technical Quality: Suboptimal MEASUREMENTS (Male / Female) Normal Values 2D ECHO LV Diastolic Diameter PLAX 5.2 cm 4.2 - 5.9 / 3.9 - 5.3 cm LV Systolic Diameter PLAX 3.9 cm IVS Diastolic Thickness 1.2 cm 0.6 - 1.0 / 0.6 - 0.9 cm IVS Systolic Thickness 1.3 cm LVPW Diastolic Thickness 1.5 cm 0.6 - 1.0 / 0.6 - 0.9 cm LVPW Systolic Thickness 1.2 cm LVOT Diameter 2.1 cm LV Ejection Fraction 2D Teich 47.4 % LV Ejection Fraction MOD 2C 47.7 % LV Ejection Fraction 2C AL 47.9 % LA Diameter 4.3 cm LA Width 3.9 cm LA Height 5.2 cm RA Width 3.6 cm RA Height 5.7 cm Aorta at Sinotubular Diameter 3.2 cm IVC Diameter 1.4 cm M-MODE Aortic Annulus Diameter 3.7 cm LA Ao Ratio MM 1.2 MV E Point Septal Separation 2.3 cm DOPPLER AV Peak Velocity 118.0 cm/s LVOT Peak Velocity 85.0 cm/s AV Area Cont Eq vti 3.1 cm squared AV Area Cont Eq pk 2.6 cm squared MV Peak Velocity 95.0 cm/s MV Area PHT 3.6 cm squared Mitral E to A Ratio 0.7 MV E' Velocity 36.5 cm/s Mitral E to MV E' Ratio 13.3 Mitral E to LV E' Lateral Ratio 10.9 Mitral E to LV E' Septal Ratio 17.5 TV Peak E Velocity 52.0 cm/s PV Peak Velocity 116.0 cm/s RV Acceleration Time 0.1 s RV Ejection Time 0.4 s RV AcT/ET 0.3 FINDINGS Left Ventricle Ventricle is relatively poorly seen. There is akinesis of the apex and mid anterior wall. There is mild hypokinesis of the anterior base and the septum. The lateral wall, inferior and posterior wright contract normally. Ejection fraction is about 35 to 40%. Grade 1 diastolic dysfunction. Right Ventricle Normal right ventricular size and systolic function. Defibrillator wire in the right ventricle. Right Atrium The right atrium is normal in size. Left Atrium The left atrium is normal in size. Mitral Valve Mitral valve not well seen. There may be trivial mitral regurgitation. Aortic Valve Aortic valve appears normal. There is no aortic stenosis. Mild aortic insufficiency. Tricuspid Valve Probably normal tricuspid valve with no tricuspid regurgitation. Pulmonic Valve Pulmonic valve not seen. Mild pulmonic regurgitation. Pericardium Normal pericardium without effusion. Aorta Normal ascending aorta dimension. IVC The inferior vena cava appears normal. CONCLUSIONS Ventricle is relatively poorly seen. There is akinesis of the apex and mid anterior wall. There is mild hypokinesis of the anterior base and the septum. The lateral wall, inferior and posterior wright contract normally. Ejection fraction is about 35 to 40%. Grade 1 diastolic dysfunction. Normal right ventricular size and systolic function. Defibrillator wire in the right ventricle. Mitral valve not well seen. There may be trivial mitral regurgitation. Aortic valve appears normal. There is no aortic stenosis. Mild aortic insufficiency. The previous study was done 11 months ago. Both are relatively poor quality studies. There are wall motion abnormalities that do not appear to be significantly changed. No other new findings. Dr. Lambert Robbins MD (Electronically Signed) Final Date: 22 July 2023 13:31 S
--- NOTE | 2023-07-21 18:51 | XRR_ITS ---
PROCEDURE INFORMATION: Exam: XR Chest Exam date and time: 07/21/2023 10:02 PM Age: 87 years old Clinical indication: Other: AMS; Prior surgery; Surgery date: 6+ months; Surgery type: Pacemaker TECHNIQUE: Imaging protocol: Radiologic exam of the chest. Views: 1 view. COMPARISON: CR XR chest 1V portable [id number] 08/15/2022 12:49 AM FINDINGS: Lungs: Lungs are clear. Pleural spaces: No pleural effusion. No pneumothorax. Heart/Mediastinum: Left chest wall biventricular ICD. 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 Stable cardiomediastinal silhouette. Diaphragm: Stable elevation of left hemidiaphragm. Bones/joints: Stable broken most superior sternotomy wire. XR/XR chest 1V portable [id number] IMPRESSION: No acute findings.
--- NOTE | 2023-07-21 19:21 | PC.NURSE ---
Skin assessment. This RN did not find any ticks on the patient. Will continue to monitor.
[2023-07-21 19:27] LABS: Urine Appearance Cloudy (CLEAR); Urine Color Amber (Yellow); pH Urine 5 (5-7)
[2023-07-21 19:28] LABS: Add Urine Microscopic? YES; Bilirubin Urine Neg (Negative); Blood Urine 3+ (Negative); Glucose Urine UA 4+ (Normal); Ketones Urine 1+ (Negative); Leukocyte Esterase Urine Negative (Negative); Nitrate Urine Negative (Negative); Protein Urine Neg (Negative); Urobilinogen Urine Norm (Negative)
[2023-07-21] MEDS: folic acid 1 mg Tablet PO (19:29)
[2023-07-21] MEDS: amlodipine 10 mg Tablet PO (19:29)
[2023-07-21] MEDS: thiamine 100 mg Tablet PO (19:29)
[2023-07-21 19:30] LABS: Mucus Urine N /hpf; RBC Urine 50-80 /hpf (0-2); Squamous Epithelial Cell Urine 0-4 /hpf (0-5)
[2023-07-21 19:32] LABS: Add Urine Culture? Yes
[2023-07-21 19:57] LABS: Ammonia 19 umol/L (16-60); Troponin 5 6HR 28.74 ng/L (0-15)
[2023-07-21 19:59] LABS: Troponin 5 6HR Delta 8.74 ng/L (0-12)
[2023-07-21 20:01] LABS: Alcohol Level < 10 mg/dL (0-10)
[2023-07-21 20:16] LABS: Glucose Point of Care 216 mg/dL (70-110)
[2023-07-21 20:17] LABS: Vitamin B12 767 pg/mL (232-1245)
--- NOTE | 2023-07-21 21:06 | ECG_ITS ---
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 Measurements Intervals [place] Rate: 81 P: 89 RI: 151 QRS: 169 QRSD: 170 T: -32 QT: 447 QTc: 521 Interpretive Statements ELECTRONIC VENTRICULAR PACEMAKER ABNORMAL RHYTHM ECG Compared to ECG 07/21/2023 17:30:46 No significant changes Electronically Signed On 07-22-2023 14:20:49 STERILE TECHNICIAN by Lambert Robbins M.D. [id number]
--- NOTE | 2023-07-21 21:26 | PC.NURSE ---
Spoke with Mrs. Castañeda. She is concerned about patient's confusion. She reports he is normally very with it . Patient is currently having trouble with short term memory and thinks it is 2000 and Misha Palma is president . Bed alarm is set and frequent monitoring.
[2023-07-22] VITALS (35 sets, daily range): BP systolic 113–153; BP diastolic 57–81; PULSE 61–80; RESP 14–26; O2SAT 91–99
[2023-07-22 04:56] LABS: Basophils % 0.3 %; Eosinophils # 0.1 10^3/uL (0.0-0.8); Eosinophils % 0.9 %; Hematocrit 43.4 % (37-53); Lymphocytes # 0.9 10^3/uL (0.8-4.8); Mean Corpuscular HGB Conc 32.7 g/dL (30-55); Mean Corpuscular Hemoglobin 29.6 pg (27-33); Mean Corpuscular Volume 90.4 fl (82-101); Mean Platelet Volume 11.9 fL (7.4-10.4); Monocytes # 0.5 10^3/uL (0.2-0.9); Monocytes % 5.9 %; Neutrophils # 7.31 10^3/uL (1.8-7.7); Neutrophils % 82.6 %; Nucleated Red Blood Cells % 0 %; Platelet Count 173 10^3/cmm (157-399); Red Cell Distribution Width 13.4 % (12.1-15.1); White Blood Count 8.86 10^3/uL (3.29-11.43)
[2023-07-22 05:22] LABS: Anion Gap 19.9 (5-19); Blood Urea Nitrogen 15 mg/dL (8-23); Calcium 9.5 mg/dL (8.5-10.5); Carbon Dioxide 21 mmol/L (22-29); Chloride 104 mmol/L (98-107); Glucose 199 mg/dL (65-115); Magnesium 2.1 mg/dL (1.7-2.3); Osmolality Calculated 298 mOsm/kg (285-295); Potassium 3.9 mmol/L (3.5-5.1); Sodium 141 mmol/L (136-145)
[2023-07-22] MEDS: doxycycline 100 mg Tablet PO (08:26)
[2023-07-22] MEDS: folic acid 1 mg Tablet PO (08:27)
[2023-07-22] MEDS: amlodipine 10 mg Tablet PO (08:27)
[2023-07-22] MEDS: thiamine 100 mg Tablet PO (08:27)
[2023-07-22] MEDS: insulin lispro 100 unit/1 mL SUBCUT (08:29)
--- NOTE | 2023-07-22 10:40 | PM.DCS ---
Discharge Providers Date of Admission: 07/21/23 15:31 Date of Discharge: July 22, 2023 Attending Provider at Admission: Dana Galindo MD Attending Provider at Discharge: Dana Galindo MD Primary Care Provider: ELIESER Oglesby Diagnoses at Discharge Discharge Diagnosis (1) Internal hemorrhoids: Status: Acute (2) Anemia: Status: Acute (3) Back pain: Status: Acute (4) Iron deficiency: Status: Chronic (5) Diabetes mellitus with hyperglycemia: Status: Chronic (6) Pacemaker: Status: Chronic (7) Essential (primary) hypertension: Status: Chronic (8) Dermatitis: Status: Acute (9) Delirium: Status: Acute (10) Metabolic encephalopathy: Status: Acute (11) 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 Patient is stating that he was partying with his friends, drank whiskey with 7-Up a day before the presentation to the ER. He was trying to bring tables from the garage inside home when he fell became dizzy and hit his head, he started bleeding that prompted his visit to the ER. In the ER he was confused, CT head unremarkable, santoyo scan did not show any acute fractures, dai were applied on cranium. Eliquis was put on hold, patient remained hemodynamic stable, patient was very confused at the time of admission however his mentation improved overnight with IV fluid hydration, I did put him on doxycycline because he loves to valiente however as per the they have not noticed any tick bites. AICD interrogation did not show any malignant arrhythmias or AICD discharge. Patient does not show any signs of pneumonia, UTI TSH and B12 was normal. He is not complaining of any chest pain, he was discharged home with stable hemodynamics. Patient is stating that he would like to discuss with Willis Hinkle to see if he would like to establish cardiology follow-up in [place] instead of [place] is [place] away. I have asked him to hold Eliquis for 1 more day, he will follow-up with PCP for removal of dai within 10 to 12 days. We will give him chlorhexidine to apply around the staple area Physical Exam Narrative: Pleasant and cooperative Euvolemic GCS 15 No active confusion Nonfocal neuro exam No signs of tick bites S1, S2 paced rhythm Discharge Data Studies Completed and Pending Completed Studies During Hospitalization Category Date Time Status CT cervical spin wo con* 90098 Stat Cat Scan 07/21/23 13:[address] head wo con* [id number] Stat Cat Scan 07/21/23 13:14 Completed XR chest 1V portable [id number] Routine Exams 07/21/23 18:51 Completed XR lumbar spine 2-3V* [id number] Stat Exams 07/21/23 13:32 Completed XR pelvis 1-2V* [id number] Stat Exams 07/21/23 13:31 Completed XR sacrum coccyx min 2V [id number] Stat Exams 07/21/23 13:31 Completed Pending at discharge Category Date Time Status Lymes Ab IgG/IgM ref WB [Lymes Western Blot] Routine Lab 07/21/23 19:25 Received Urine Culture Routine Lab 07/21/23 19:00 Received CV. echo complete* [id number] Routine Ultrasound 07/21/23 18:22 Taken Radiology Impressions Chest X-Ray 07/21/23 18:51 IMPRESSION: No acute findings. Laboratory Results WBC 8.86 10^3/uL (3.29-11.43) 07/22/23 03:55 RBC 4.80 10^6/uL (3.85-5.65) 07/22/23 03:55 Hgb 14.20 g/dL (11.27-16.99) 07/22/23 03:55 Hct 43.4 % (37-53) 07/22/23 03:55 MCV 90.4 fl (82-101) 07/22/23 03:55 MCH 29.6 pg (27-33) 07/22/23 03:55 MCHC 32.7 g/dL (30-55) 07/22/23 03:55 RDW 13.4 % (12.1-15.1) 07/22/23 03:55 Plt Count 173 10^3/cmm (157-399) 07/22/23 03:55 MPV 11.9 fL (7.4-10.4) H 07/22/23 03:55 Neut % (Auto) 82.6 % 07/22/23 03:55 Lymph % (Auto) 10.0 % 07/22/23 03:55 [place] % (Auto) 5.9 % 07/22/23 03:55 Eos % (Auto) 0.9 % 07/22/23 03:55 Baso % (Auto) 0.3 % 07/22/23 03:55 Neut # (Auto) 7.31 10^3/uL (1.8-7.7) 07/22/23 03:55 Lymph # (Auto) 0.9 10^3/uL (0.8-4.8) 07/22/23 03:55 [place] # (Auto) 0.5 10^3/uL (0.2-0.9) 07/22/23 03:55 Eos # (Auto) 0.1 10^3/uL (0.0-0.8) 07/22/23 03:55 Baso # (Auto) 0.0 10^3/uL (0.0-0.1) 07/22/23 03:55 Nucleated RBC % (auto) 0 % 07/22/23 03:55 Nucleated RBCs # 0.0 /100WBC 07/22/23 03:55 Sodium 141 mmol/L (136-145) 07/22/23 03:55 Potassium 3.9 mmol/L (3.5-5.1) 07/22/23 03:55 Chloride 104 mmol/L (98-107) 07/22/23 03:55 Carbon Dioxide 21 mmol/L (22-29) L 07/22/23 03:55 Anion Gap 19.9 (5-19) H 07/22/23 03:55 BUN 15 mg/dL (8-23) 07/22/23 03:55 Creatinine 1.0 mg/dL (0.7-1.2) 07/22/23 03:55 GFR Calculation Not Reportable 07/22/23 03:55 Glucose 199 mg/dL (65-115) H 07/22/23 03:55 POC Glucose 216 mg/dL (70-110) H 07/21/23 20:12 Calculated Osmolality 298 mOsm/kg (285-295) H 07/22/23 03:55 Calcium 9.5 mg/dL (8.5-10.5) 07/22/23 03:55 Magnesium 2.1 mg/dL (1.7-2.3) 07/22/23 03:55 Ammonia 19 umol/L (16-60) 07/21/23 19:25 Troponin T Baseline 20 ng/L (0-15) H 07/21/23 13:38 Troponin T 120 Minute 25.68 ng/L (0-15) H 07/21/23 15:37 Delta Troponin T 5.68 ABS# (0-10) 07/21/23 15:37 Troponin T Hi Sens 6Hr 28.74 ng/L (0-15) H 07/21/23 19:25 Troponin T Hi Sens 6Hr Delta 8.74 ng/L (0-12) 07/21/23 19:25 Vitamin B12 767 pg/mL (232-1245) 07/21/23 19:25 TSH 2.50 uIU/mL (0.27-4.20) 07/21/23 13:38 Urine Color Chloe (Yellow) 07/21/23 19:00 Urine Appearance Cloudy (CLEAR) A 07/21/23 19:00 Urine pH 5 (5-7) 07/21/23 19:00 Ur Specific Buckner 1.020 (1.005-1.030) 07/21/23 19:00 Urine Protein Neg (Negative) 07/21/23 19:00 Urine Glucose (UA) 4+ (Normal) H 07/21/23 19:00 Urine Ketones 1+ (Negative) H 07/21/23 19:00 Urine Blood 3+ (Negative) H 07/21/23 19:00 Urine Nitrate Negative (Negative) 07/21/23 19:00 Urine Bilirubin Neg (Negative) 07/21/23 19:00 Urine Urobilinogen Norm mg/dL (Negative) 07/21/23 19:00 Ur Leukocyte Esterase Negative (Negative) 07/21/23 19:00 Urine RBC 50-80 /hpf (0-2) H 07/21/23 19:00 Urine WBC None /hpf (0-5) 07/21/23 19:00 Ur Squamous Epith Cells 0-4 /hpf (0-5) H 07/21/23 19:00 Amorphous Sediment Not Reportable 07/21/23 19:00 Urine Bacteria None /hpf (NONE) 07/21/23 19:00 Urine Mucus N /hpf 07/21/23 19:00 Ethyl Alcohol < 10 mg/dL (0-10) 07/21/23 19:25 Vitals Last Vital Signs Temp 98.9 F 07/21/23 20:00 Pulse 66 07/22/23 09:48 Resp 17 07/22/23 09:48 BP 113/64 07/22/23 08:00 Pulse Ox 97 07/22/23 09:48 O2 Del Method Room Air 07/22/23 09:48 Discharge Plan Discharge Patient Disposition: Home Condition: Stable Prescriptions: New amlodipine 10 mg Tablet 5 mg PO DAILY Qty: 30 0RF chlorhexidine gluconate [Betasept Surgical Scrub] 4 % liquid 1 applic topical DAILY 5 Days Qty: 236 0RF Continued metformin 500 mg tablet 500 mg PO BID simvastatin 20 mg tablet 20 mg PO QPM (DME) DME: Walker Unit See Rx Instructions .ROUTE .MEDSUPPLY Qty: 1 0RF Rx Instructions: Code E0143 and E0156 walker 4 wheels and seat (DME) cane Device See Rx Instructions .Route Qty: 1 0RF Rx Instructions: As directed (DME) OneTouch Ultra Test Strip See Rx Instructions .Route Qty: 50 5RF Rx Instructions: one daily (DME) lancets [OneTouch UltraSoft Lancets] Misc See Rx Instructions .Route Qty: 100 2RF Rx Instructions: one day Jardiance 10 mg tablet 10 mg PO DAILY Held Eliquis 5 mg tablet 5 mg PO BID Hold Instructions: Resume on 07/23/23. Discharge Orders: Discharge Order (Routine); Ordered 07/22/23 Ordered By: Dana Galindo Referrals: Willis Hinkle, [facility] [Primary Care Provider] - Patient Instructions: Opioid Safety Activity Restrictions/Additional Instructions: Your blood pressure has been fluctuating between 140/70mmhg added Amlodipinewhich you can take on daily basis Please hold Eliquis for a day and follow-up with your PCP for removal of dai after 10 days Discharge Attestations Time Spent in Discharge Care*: greater than 30 min Quality Metrics Clinical Quality Measures [ No reported AMI, CVA or VTE this stay] Coding Level of Care Code Acute Code for Chg Fwd Diagnoses Internal hemorrhoids K64.8 Anemia D64.9 Back pain M54.9 Iron deficiency E61.1 Diabetes mellitus with hyperglycemia E11.65 Pacemaker Z95.0 Essential (primary) hypertension I10 Dermatitis L30.9 Delirium R41.0 Metabolic encephalopathy G93.41 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
--- NOTE | 2023-07-22 11:43 | PC.NURSE ---
Discharge Note Patient discharged to [home] via [w/c to POV] accompanied by [spouse]. Discharge instructions reviewed with patient and/or contact representative. [place] [facility] medications and/or prescriptions provided. Belongings/home medications returned.
--- NOTE | 2023-07-22 11:45 | PC.NURSE ---
IV in LFA removed without difficulty noted. Catheter intact. Pt tolerated well.
[2023-07-25 17:25] LABS: Lymes IGG WB <0.90 index
== END 2023-07-22 11:46 | disposition home or self-care (01) ==
LOC: ER 13:48 → ICU 15:32
PROVIDERS: Admitting Provider Internal Medicine; Emergency Provider Family Medicine; PCP Nurse Practitioner; Visit Provider Internal Medicine
DX: R41.0 Disorientation, unspecified (principal); Z91.81 History of falling; D64.9 Anemia, unspecified; G93.41 Metabolic encephalopathy; S01.81XA Laceration without foreign body of other part of head, initial encounter; W10.9XXA Fall (on) (from) unspecified stairs and steps, initial encounter; F10.151 Alcohol abuse with alcohol-induced psychotic disorder with hallucinations; M54.9 Dorsalgia, unspecified; E61.1 Iron deficiency; E11.65 Type 2 diabetes mellitus with hyperglycemia; Z95.0 Presence of cardiac pacemaker; I10 Essential (primary) hypertension; K64.8 Other hemorrhoids; L30.9 Dermatitis, unspecified; I48.91 Unspecified atrial fibrillation; Z79.01 Long term (current) use of anticoagulants; Z86.73 Personal history of transient ischemic attack (TIA), and cerebral infarction without residual deficits; Z66 Do not resuscitate
CPT/HCPCS: 36415; 36416; 70450; 71045; 72100; 72125; 72170; 72220; 80048; 80307; 81001; 82140; 82607; 82962; 83735; 84443; 84484; 85025; 86617; 87086; 93005; 93306; 96360; 96361; 96372; 97161; 99285; G0378; J1815

== ENCOUNTER → 2023-10-12 08:24 | Outpatient (BNVA) | payer MEDICARE, SELFPAY | PROVIDERS: PCP Nurse Practitioner; Visit Provider Nurse Practitioner | DX: E11.65 Type 2 diabetes mellitus with hyperglycemia (principal); E55.9 Vitamin D deficiency, unspecified; Z79.899 Other long term (current) drug therapy | CPT/HCPCS: 80053; 80061; 82306; 82607; 83036; 85025 ==

== ENCOUNTER → 2024-07-04 08:52 | Outpatient (BNVA) | payer MEDICARE, SELFPAY | PROVIDERS: PCP Nurse Practitioner; Visit Provider Nurse Practitioner | DX: I10 Essential (primary) hypertension (principal); E11.65 Type 2 diabetes mellitus with hyperglycemia; E11.9 Type 2 diabetes mellitus without complications | CPT/HCPCS: 80053; 80061; 82043; 83036; 85025 ==